=== PATIENT | female | born 1940 | race Caucasian/White ===

== ENCOUNTER 2017-09-11 10:58 | Inpatient (IN) | payer MEDICARE, OTHER, SELFPAY ==
[2017-09-11] VITALS (13 sets, daily range): BP systolic 95–127; BP diastolic 51–60; PULSE 57–70; RESP 16–21; TEMP 36.6–37.9; O2SAT 95–100; BMI 20.8; BMI 22.4; BMI 22.5
--- NOTE | 2017-09-11 11:18 | RAD_ITS ---
STUDY: X-RAY CHEST REASON FOR EXAM: Female, 77 years old. Syncope. Heart disease. TECHNIQUE: Single AP portable view of the chest. COMPARISON: 04/12/2013. FINDINGS: Normal lung volumes. 1.2 cm nodule of the mid left lung. CT scan recommended. No infiltrates. No effusions. Sternal cerclage wires and vascular clips are present from a prior sternotomy and coronary artery bypass graft procedure (CABG). Normal mediastinum and tiana. Normal visualized pulmonary arteries. Normal visualized aortic arch and descending thoracic aorta. Normal visualized thoracic spine. Normal visualized ribs, clavicles, and shoulders. There is no demonstrated abnormality of the visualized soft tissue structures of the upper abdomen. RAD/Chest 1 View (Portable) IMPRESSION: 1.2 cm nodule of the mid left lung. CT scan recommended. Electronically Signed: Navdeep Dc MD at 11:41 EDT , Service support ,
--- NOTE | 2017-09-11 11:18 | EKG12_ITS ---
Test Reason : Blood Pressure : / mmHG Vent. Rate : 056 BPM Atrial Rate : 056 BPM P-R Int : 150 ms QRS Dur : 078 ms QT Int : 422 ms P-R-T Axes : 056 017 026 degrees QTc Int : 407 ms Sinus bradycardia Otherwise normal ECG Confirmed by PROSPER NOGUERA, GABRIELLA ([id number]), industrial editor ARIN ARGUETA ([id number]) on 09/13/2017 3:26:53 PM Referred By: MIAH Confirmed By:GABRIELLA CHENG MD
--- NOTE | 2017-09-11 11:18 | CT_ITS ---
STUDY: CT BRAIN WITHOUT CONTRAST REASON FOR EXAM: Female, 77 years old. SYNCOPE RADIATION DOSAGE (If Supplied By Facility): CTDIvol = ( 44.99 ) mGy, DLP = ( 779.24 ) mGycm TECHNIQUE: Transaxial CT imaging of the brain was performed without administration of intravenous contrast material. Individualized dose optimization techniques were used for this CT. COMPARISON: None. FINDINGS: Normal soft tissue structures. Normal calvarium. Normal size ventricles and extra-axial spaces for the patient's age. Normal white matter tracts of the cerebral hemispheres. Normal basal ganglia and thalami. Normal brainstem. Normal cerebellum. There is no intracranial hemorrhage. There are no findings of an acute ischemic infarction. Normal visualized paranasal sinuses. CT/Brain/Head without Contrast IMPRESSION: Normal unenhanced CT scan of the brain. Electronically Signed: Navdeep Dc MD at 12:05 EDT , Service support ,
[2017-09-11] MEDS: 0.9% Normal Saline 1,000 ML 150 ML IV (11:38)
[2017-09-11 11:45] LABS: Absolute Lymphocyte Count 0.51 X10^3/ul (0.83-4.51); Absolute Neutrophil Count 1.4 X10^3/uL (2.0-7.7); Basophil# 0.01 X10^3/uL; Basophil% 0.4 % (0-1); Differential Indicated SCAN CRITERIA MET; Eosinophil# 0.01 X10^3/uL; Eosinophils% 0.4 % (0-5); Hematocrit 33.5 % (37-47); Hemoglobin 11.4 g/dl (12.0-15.0); Lymphocyte # 0.51 X10^3/ul (4.0); Lymphocyte % 22.9 % (19-41); Mean Corpuscular Hgb 29.4 pg (27.0-32.0); Mean Corpuscular Volume 86.3 fL (81-99); Monocyte# 0.29 X10^3/uL; Neutrophil % 62.9 % (47-70); POSITIVE COUNT NO; POSITIVE DIFFERENTIAL YES; POSITIVE MORPHOLOGY NO; Platelet Count 144 K/mm3 (150-450); RBC Distribution Width CV 13.3 % (11.6-14.6); RBC Distribution Width SD 41.8 fl (35.1-43.9); Red Blood Count 3.88 M/mm3 (4.2-5.4); White Blood Count 2.2 K/mm3 (4.4-11.0)
[2017-09-11 12:00] LABS: Anion Gap 8 (5-15); BUN 11 mg/dL (7-18); BUN/Creat Ratio 21.9 RATIO (10-20); Calcium,Total 8.6 mg/dL (8.5-10.1); Chloride 98 mmol/L (98-107); EST Glomerular Filtration Rate 126 mL/min (>60); Est Glom Filt Rate - Afr Amer 153 mL/min (>60); Estimated Creatinine Clearance 37.26 ml/min; Glucose 105 mg/dL (74-106); Potassium 3.5 mmol/L (3.5-5.1); Sodium Level 131 mmol/L (136-145)
--- NOTE | 2017-09-11 12:10 | ED.RN ---
FLU B CALLED FROM THE LAB. DR BOND AWARE
--- NOTE | 2017-09-11 12:41 | ED.VISSUMM ---
- ER Visit Summary Date of Service: 09/11/17 Chief Complaint: [Syncope] History of Present Illness: The patient is a 77 F [presents to the emergency department with a syncopal episode that occurred this morning. Patient states that she was on the couch and had gotten up to go into the kitchen when she started feeling dizzy. Patient apparently just remembers falling onto the floor but apparently her was able to catch her so she did not injure herself. Patient denies any chest pain or palpitations. Patient does state that she had a head cold and cough that started 2 weeks ago. Patient was on Biaxin for about a week but then developed vomiting so she stopped taking the Biaxin. Patient states that she has been on the couch for the last 2 days just not feeling well with headache and congestion and just generalized weakness. Patient apparently had fever recently up to 101.6. Patient denies any chest pain or abdominal pain. Patient does not have a history of syncope.] Physical Examination: [HEENT-PERRLA, EOMI. Cranial nerves II through XII grossly intact. TMs clear. Mucous membranes are dry. No adenopathy. Cardiovascular-regular rate and rhythm without murmur or ectopy Lungs-clear to auscultation, chest wall stable without crepitus or subcu emphysema Abdomen-normoactive bowel sounds, soft, nontender, no rebound or rigidity, no peritoneal signs. Extremities-intact ?4, normal range of motion, normal pulses, atraumatic] Test Results: [EKG obtained arrival shows sinus bradycardia with rate of 56 bpm with no acute ST segment changes noted. CBC with differential showed a white count 2.2, hemoglobin 11, hematocrit 33, platelets 144. Chemistries unremarkable. Troponin was less than 0.02. CT scan of the brain was normal. Chest x-ray showed 1.2 cm nodule mid left lung otherwise nothing acute.] Emergency Department Course and Treatment: [While in the department her blood pressure dropped into the 80 systolic therefore she was given a liter normal same fluid bolus] Treatment Plan: [Admit for IV fluids and further evaluation of her syncope] Disposition: [Admit] Impression: [Syncope-etiology uncertain Hypotension] This note was generated with [employer] dictation software. It may contain incorrect words, spelling, and punctuation that were not noted in review of the chart prior to signing ED Disposition - Plan for ED Patient: Chief Complaint: Syncope Referrals: Stephanie Aceves DO [Primary Care Provider] -
[2017-09-11] MEDS: 0.9% Normal Saline 1,000 ML 1000 ML IV (12:43)
[2017-09-11 13:13] LABS: Mucous, Urine 0 SEEN /hpf (<or=2+); Red Blood Cells-Urine 0 SEEN /hpf (0-5); Squamous Epithelial Cells - UA 0 SEEN /hpf (5-10); White Blood Cells 0 SEEN /hpf (0-5)
[2017-09-11 13:17] LABS: Color, Urine Yellow (Yellow); Glucose, Dipstick Normal (Normal); Ketone-Dipstick Negative (Negative); Leukocyte Esterase-Dipstick Negative /ul (Negative); Nitrite-Dipstick Negative (Negative); Occult Blood-Urine Negative /ul (Negative); Protein-Dipstick 15 mg/dl (Negative); Urine Bilirubin Dipstick Negative (Negative); Urine Clarity Clear (Clear); Urine Urobilinogen Normal (Normal)
[2017-09-11 13:36] LABS: Bacteria 1+ /hpf (None Seen)
--- NOTE | 2017-09-11 13:44 | PCM.HP.STD ---
Problem List (1) Coronary artery disease Status: Acute (2) H/O two vessel coronary artery bypass graft Status: Chronic (3) Hypertension Status: Chronic (4) Osteoporosis Status: Acute (5) History of right breast cancer Status: Resolved Comment: History of right breast lumpectomy (6) Nodule of left lung Status: Acute (7) Syncope and collapse Status: Acute (8) Hypotension Status: Acute (9) Influenza B Status: Acute History of Present Illness Date of Admission: 09/11/17 Chief Complaint: Syncope today The patient is a 77 year old F with multiple comorbidities was brought to ER when she passed out at home. She has been suffering from cough, productive in nature and vomiting for last 3 weeks.. Her PCP prescribed Biaxin but she vomited after taking pill although she said she took for 7 days. Her cough got better but again the last 2 days it came back which is more severe and productive, feeling cold along with postnasal drip and URI symptoms and then she passed out today without prodromal symptoms. She passed out for less than 1 minute and she did not fall as her caught her and broke the fall. She vomited after she regained consciousness. EMS EKG shows sinus bradycardia at 50 bpm. In ER, influenza A came positive. EKG shows sinus bradycardia at 56 bpm. QTc normal, 407 ms. [] Past Medical History Past Medical History (Chronic Problems): Chronic Problems H/O two vessel coronary artery bypass graft (Chronic) Hypertension (Chronic) Allergies formaldehyde Allergy (Verified 09/11/17 10:59) Unknown nickel [Nickel] Allergy (Verified 09/11/17 10:59) Unknown perflutren lipid microspheres [From Definity] Allergy (Verified 09/11/17 10:59) Other SEVERE BACK ACHE piroxicam [From Feldene] Allergy (Verified 09/11/17 10:59) Unknown THEMASOL Allergy (Uncoded 09/11/17 10:59) Unknown Home Medications: Ambulatory Orders Medication Instructions Recorded Aspirin [Aspirin, Baby] 81 mg PO DAILY@0800 04/15/13 Carvedilol [Coreg (Beta Vandana)] 12.5 mg PO BID 04/15/13 Cyanocobalamin [Vitamin B12] 1,000 mcg IM Q30D 04/15/13 Levothyroxine [Synthroid] 112 mcg PO DAILY 04/15/13 Lisinopril [Zestril] 10 mg PO DAILY 04/15/13 Nitroglycerin [Nitrostat] 0.4 mg SUBLINGUAL Q5M PRN 04/15/13 Calcium Citrate/Vitamin D3 1 each PO BID 05/18/15 [Calcium Citrate-Vit D3 Tablet] Cholecalciferol (VIT D3) [Vitamin 2,000 unit PO DAILY 05/18/15 D3] Denosumab [Prolia] 60 mg SQ UD 05/18/15 TraMADol [Ultram] 50 mg PO DAILY 05/18/15 Ezetimibe [Zetia] 10 mg PO DAILY 07/23/17 Oxycodone HCl/Acetaminophen 1 tab PO Q6H PRN PRN #12 tab 07/23/17 [Percocet 5/325] Apremilast [Otezla] 2 each PO DAILY 09/11/17 Letrozole [Femara] 2.5 mg PO DAILY 09/11/17 Smoking Status: Former smoker - *Family History Sibling History Items: No pertinent history Review of Systems Constitutional: Reports: Anorexia, Weakness. Denies: Chills, Fever, Weight Change HEENT: Reports: Nasal Congestion, Sinus Drainage, Sore Throat. Denies: Head Aches, Sinus Congestion Cardiovascular: Denies: Chest Pain, Palpitations Respiratory: Reports: Cough, Shortness of breath upon exertion. Denies: Shortness of breath at rest, Sputum production Gastrointestinal: Reports: Vomiting. Denies: Abdominal Pain, Constipation, Nausea Genitourinary: Denies: Dysuria Musculoskeletal: Denies: Joint Pain, Joint Tenderness Skin: Denies: Rash, Wounds Neurological: Denies: Numbness, Tingling, Focal weakness Psychiatric: Denies: Anxiety, Depression, Homicidal Ideations, Suicidal Ideations Hematologic/ Lymphatic: Denies: Easy Bruising, Easy Bleeding VTE Information - Inpt Only VTE Present on Admission: No VTE Mechan Device Prophylaxis: SCD's VTE Pharm Prophylaxis ordered?: Yes Patient Problems: Active and Suspected Problems Coronary artery disease (Acute) Osteoporosis (Acute) Nodule of left lung (Acute) Syncope and collapse (Acute) Hypotension (Acute) Influenza B (Acute) - Physical Exam General: Alert, Oriented x3, Cooperative HEENT: Atraumatic, PERRLA, EOMI, Normocephalic Neck: Supple, No JVD, Negative Carotid Bruits Lungs: Normal air movement, No wheeze, No rales, Rhonchi - Expiratory wheezing Cardiovascular: Regular rate, No murmurs Abdomen: Bowel Sounds Present, Soft, Non Tender, Non-Distended Extremities: No edema, Capillary Refill Less than 3 Seconds Skin: No rashes, No breakdown Musculoskeletal: No Tenderness to Palpation of Joints or Extremities, Arthritic Changes Neurological: Cranial nerves II-XII grossly intact, Neuro grossly intact Psych/Mental Status: Normal Affect, Appropriate Vital Signs Temp Pulse Resp BP Pulse Ox 97.8 F 67 17 100/53 L 100 09/11/17 10:59 09/11/17 13:05 09/11/17 13:00 09/11/17 13:05 09/11/17 13:00 Laboratory Tests Past 24 Hrs 09/11/17 13:08 Urine Color Yellow Urine Clarity Clear Urine pH 6.0 Ur Specific [place] 1.020 Urine Protein 15 H Urine Glucose (UA) Normal Urine Ketones Negative Urine Occult Blood Negative Urine Nitrite Negative Urine Bilirubin Negative Urine Urobilinogen Normal Ur Leukocyte Esterase Negative Urine RBC 0 SEEN Urine WBC 0 SEEN Ur Squamous Epith Cells 0 SEEN Urine Bacteria 1+ Urine Mucus 0 SEEN Assessment/Plan Active and Suspected Problems Coronary artery disease (Acute) Osteoporosis (Acute) Nodule of left lung (Acute) Syncope and collapse (Acute) Hypotension (Acute) Influenza B (Acute) The patient is a 77 year old F with multiple comorbidities was brought to ER when she passed out at home. She has been suffering from cough, productive in nature and vomiting for last 3 weeks.. Her PCP prescribed Biaxin but she vomited after taking pill although she said she took for 7 days. Her cough got better but again the last 2 days it came back which is more severe and productive, feeling cold along with postnasal drip and URI symptoms and then she passed out today without prodromal symptoms. She passed out for less than 1 minute and she did not fall as her caught her and broke the fall. She vomited after she regained consciousness. EMS EKG shows sinus bradycardia at 50 bpm. In ER, influenza B came positive. EKG shows sinus bradycardia at 56 bpm. QTc normal, 407 ms. 1. Syncope most probably from hypotension or from influenza B: The patient is being admitted in PCU. Cycle cardiac enzymes. IV fluid resuscitation. On Tamiflu. 2D echo ordered. Avoid antihypertensive medication. Respiratory panel ordered. 2. SIRS (leukopenia, tachypnea) WITH Hypotension sec to influenza B with URI with bronchitis. Chest x-ray is negative for pneumonia. Patient does not have hypoxia. Hemogram is suggestive of leukopenia and mild thrombocytopenia mainly from viral infection. Lactic acid ordered. Blood cultures ?2, sputum culture ordered. Sepsis workup. 3. History of right breast cancer status post right lumpectomy with new 1.2 cm nodule of mid left lung: Will order CT chest with IV contrast when she is more stable after recovery of hypotension. 4. Chronic comorbidities include coronary artery disease status post CABG 2 vessel thousand 3 with no recent event, hypertension, osteoporosis, hypothyroidism: Stable. Home medication reconciliation done. DVT prophylaxis: On Lovenox 40 mg subcu daily and bilateral SCDs This note was generated with [employer] dictation software. Every effort was made to ensure accuracy, however computerized [employer] school industrial arts teacher mistakes may persist. Microbiology Past 72 Hours 09/11/17 11:20 Mucosa - Nose Influenza Types A,B Direct FA ([facility]ALL) - Final Laboratory Results 09/11/17 11:25: WBC 2.2 L, RBC 3.88 L, Hgb 11.4 L, Hct 33.5 L, MCV 86.3, MCH 29.4, MCHC 34.0, RDW 13.3, RDW Differential 41.8, Plt Count 144 L, MPV 9.0, Immature Gran % (Auto) 0.400, Neut % (Auto) 62.9, Lymph % (Auto) 22.9, Larue % (Auto) 13.0 H, Eos % (Auto) 0.4, Baso % (Auto) 0.4, Absolute Neuts (auto) 1.4 L, Absolute Lymphs (auto) 0.51 L, Total Counted Not Reportable, Differential Comment , Diff Path Review May foll 09/11/17 11:25: Sodium 131 L, Potassium 3.5, Chloride 98, Carbon Dioxide 25.0, Anion Gap 8, BUN 11, Creatinine 0.50 L, Estim Creat Clear Calc 37.26, Est GFR (MDRD) Af Amer 153, Est GFR (MDRD) Non-Af 126, BUN/Creatinine Ratio 21.9 H, Glucose 105, Calcium 8.6, Troponin I < 0.02 09/11/17 13:08: Urine Color Yellow, Urine Clarity Clear, Urine pH 6.0, Ur Specific [place] 1.020, Urine Protein 15 H, Urine Glucose (UA) Normal, Urine Ketones Negative, Urine Occult Blood Negative, Urine Nitrite Negative, Urine Bilirubin Negative, Urine Urobilinogen Normal, Ur Leukocyte Esterase Negative, Urine RBC 0 SEEN, Urine WBC 0 SEEN, Ur Squamous Epith Cells 0 SEEN, Urine Bacteria 1+, Urine Mucus 0 SEEN Clinical Impression(s) from Imaging Studies Brain CT 09/11/17 11:18 IMPRESSION: Normal unenhanced CT scan of the brain. Electronically Signed: Navdeep Dc MD at 12:05 EDT , Service support , Chest X-Ray 09/11/17 11:18 IMPRESSION: 1.2 cm nodule of the mid left lung. CT scan recommended. Electronically Signed: Navdeep Dc MD at 11:41 EDT , Service support , Code Visit OBSV E&M: 70898 Initial observation care L3
--- NOTE | 2017-09-11 13:52 | ECHOD_ITS ---
Reason For Study: syncope Procedure This was a 2D Doppler, Color Flow transthoracic echocardiogram. The study was technically difficult. PT unable to lie still. deferred definity due to previous reaction (back pain). Exam performed portable in patient room. Left Ventricle Normal LV size. Left ventricular systolic function is normal. The estimated ejection fraction is 60 %. Transmitral and pulmonary venous doppler flow suggestive of impaired relaxation of left ventricle. Transmitral diastolic flow velocities suggest mild (stage 1) diastolic dysfunction (reversed pattern). Right Ventricle Normal RV size. Normal systolic function. Atria The left atrium is mildly enlarged. Normal right atrium. Mitral Valve Normal mitral valve. Tricuspid Valve Normal tricuspid valve. Mild (1+) tricuspid valve insufficiency. Pulmonary artery systolic pressure is 30 mmHg. Aortic Valve The aortic valve is not well visualized. Pulmonic Valve The pulmonic valve is not well visualized. Great Vessels Normal aortic root. The pulmonary artery is normal size. Normal inferior vena cava. Pericardium/Pleural No pericardial effusion. MMode/2D Measurements & Calculations LVIDd: 4.5 cm IVSd: 1.2 cm Ao root diam: 2.6 cm LVIDs: 3.0 cm LVPWd: 1.3 cm LA dimension: 4.4 cm RVDd: 2.9 cm FS: 34.1 % LAV(MOD-bp): 67.8 ml LA A4 area: 20.9 cm2 RA A4 area: 12.7 cm2 LAV(MOD-bp) Indexed: 45.0 ml/m2 LAV(MOD-sp2): 68.4 ml LAV(MOD-sp4): 66.4 ml Time Measurements MV dec time: 0.19 sec Doppler Measurements & Calculations MV E max carlos: 80.2 cm/sec Lat Peak E' Carlos: 11.3 cm/sec Med Peak E' Carlos: 7.5 cm/sec MV A max carlos: 103.4 cm/sec E/E' lat: 7.1 E/E' med: 10.7 MV E/A: 0.78 Ao V2 max: 157.7 cm/sec LV V1 max: 115.8 cm/sec PA V2 max: 127.1 cm/sec Ao max P.0 mmHg LV V1 max P.4 mmHg TR max carlos: 250.8 cm/sec TR max P.2 mmHg Interpretation Summary Normal LV size. Left ventricular systolic function is normal. The estimated ejection fraction is 60 %. Transmitral diastolic flow velocities suggest mild (stage 1) diastolic dysfunction (reversed pattern). Mild (1+) tricuspid valve insufficiency. Compared to prior study, there is no significant change. Ordering Physician: Jacob Drew Referring Physician: Stephanie Aceves Performed By: Shannan Platt, ALISHA, RVT
[2017-09-11] MEDS: Ipratropium/Albuterol Sulfate 3 ML AMPUL.NEB INHALATION ×2 (14:49→21:48)
[2017-09-11] MEDS: 0.9% NaCl Peripheral Flush Adult/Peds IV (14:51)
[2017-09-11] MEDS: 0.9% Normal Saline 1,000 ML 100 ML IV (14:52)
[2017-09-11] MEDS: Famotidine 20 MG Tablet PO ×2 (15:16→21:33)
[2017-09-11] MEDS: Enoxaparin 40 MG/0.4 ML Syringe SC (15:16)
[2017-09-11] MEDS: Oseltamivir Phosphate 75 MG Capsule PO (15:16)
[2017-09-11 19:35] LABS: Color, Urine Straw (Yellow); Glucose, Dipstick Normal (Normal); Ketone-Dipstick Negative (Negative); Leukocyte Esterase-Dipstick Negative /ul (Negative); Nitrite-Dipstick Negative (Negative); Occult Blood-Urine Negative /ul (Negative); Protein-Dipstick Negative (Negative); Urine Bilirubin Dipstick Negative (Negative); Urine Clarity Clear (Clear); Urine Urobilinogen Normal (Normal); Urine pH 6.5 (5.0 - 8.0)
--- NOTE | 2017-09-11 21:18 | CT_ITS ---
STUDY: CT CHEST WITH CONTRAST REASON FOR EXAM: Female, 77 years old. Left lung nodule, right breast CA RADIATION DOSAGE (If Supplied By Facility): CTDIvol = ( 9.83 ) mGy, DLP = ( 212.14 ) mGycm TECHNIQUE: Transaxial imaging was performed following intravenous administration of 80ML ml of Isovue 300 contrast material. Individualized dose optimization techniques were used for this CT. COMPARISON: September 19, 2017 chest x-ray. FINDINGS: The lungs are normal. 2 mm peripheral right lower lobe nodule posteriorly, image 81. 4 mm nonspecific nodule at the right costophrenic angle, image 89. Previously suggested left mid lung nodule is not noted on the CT. Normal heart and pericardium. Subcentimeter nodes in the mediastinum. Normal hilar regions. Normal enhanced pulmonary arteries. Normal aorta arch and descending thoracic aorta. Mild degenerative vertebral changes. Subcentimeter left axillary nodes. 2.3 cm central cyst of the liver. CT/Chest WITH Contrast IMPRESSION: Nonspecific small right pulmonary nodular densities in the periphery. Subcentimeter mediastinal nodes. Subcentimeter left axillary nodes. Probable hepatic cyst. Electronically Signed: Vikas Hooker DO at 19:51 EDT Tel [phone], Service support ,
[2017-09-11] MEDS: guaiFENesin 1,200 MG Tablet 1200 MG PO (21:33)
[2017-09-11] MEDS: Oseltamivir Phosphate 30 MG Capsule PO (21:33)
[2017-09-11] MEDS: Carvedilol 12.5 MG Tablet PO (21:34)
[2017-09-11] MEDS: Acetaminophen 325 MG Tablet 650 MG PO (21:39)
[2017-09-12] VITALS (13 sets, daily range): BP systolic 108–143; BP diastolic 53–68; PULSE 24–79; RESP 16–18; TEMP 36.3–37.1; O2SAT 95–98
[2017-09-12] MEDS: 0.9% Normal Saline 1,000 ML 100 ML IV ×2 (05:44→14:31)
[2017-09-12] MEDS: Levothyroxine 112 MCG Tablet PO (05:44)
[2017-09-12] MEDS: Enoxaparin 40 MG/0.4 ML Syringe SC (05:44)
[2017-09-12 06:41] LABS: Absolute Lymphocyte Count 0.74 X10^3/ul (0.83-4.51); Absolute Neutrophil Count 0.6 X10^3/uL (2.0-7.7); Basophil# 0.01 X10^3/uL; Basophil% 0.6 % (0-1); Eosinophil# 0.01 X10^3/uL; Eosinophils% 0.6 % (0-5); Hematocrit 30.3 % (37-47); Hemoglobin 10.1 g/dl (12.0-15.0); Lymphocyte # 0.74 X10^3/ul (4.0); Lymphocyte % 48.1 % (19-41); Mean Corp Hgb Conc 33.3 g/gl (32-36); Mean Corpuscular Volume 87.1 fL (81-99); Mean Platelet Vol. 9.1 fl (6.2-12.0); Monocyte# 0.17 X10^3/uL; Neutrophil % 39.1 % (47-70); Platelet Count 125 K/mm3 (150-450); RBC Distribution Width CV 13.3 % (11.6-14.6); RBC Distribution Width SD 42.7 fl (35.1-43.9); Red Blood Count 3.48 M/mm3 (4.2-5.4); White Blood Count 1.5 K/mm3 (4.4-11.0)
[2017-09-12 06:42] LABS: Differential Indicated SCAN CRITERIA MET; POSITIVE COUNT NO; POSITIVE DIFFERENTIAL YES; POSITIVE MORPHOLOGY NO
[2017-09-12 07:07] LABS: Anion Gap 9 (5-15); BUN 9 mg/dL (7-18); Calcium,Total 7.8 mg/dL (8.5-10.1); Chloride 110 mmol/L (98-107); Creatinine, Serum 0.35 mg/dL (0.55-1.02); EST Glomerular Filtration Rate 194 mL/min (>60); Est Glom Filt Rate - Afr Amer 235 mL/min (>60); Estimated Creatinine Clearance 35.55 ml/min; Glucose 85 mg/dL (74-106); Potassium 3.6 mmol/L (3.5-5.1); Sodium Level 139 mmol/L (136-145)
[2017-09-12] MEDS: Ipratropium/Albuterol Sulfate 3 ML AMPUL.NEB INHALATION ×3 (07:21→19:18)
[2017-09-12] MEDS: Lisinopril 10 MG Tablet PO (09:14)
[2017-09-12] MEDS: Carvedilol 12.5 MG Tablet PO ×2 (09:15→21:26)
[2017-09-12] MEDS: guaiFENesin 1,200 MG Tablet 1200 MG PO ×2 (09:15→21:26)
[2017-09-12] MEDS: Oseltamivir Phosphate 30 MG Capsule PO ×2 (09:15→21:26)
[2017-09-12] MEDS: Ezetimibe 10 MG Tablet PO (09:15)
[2017-09-12] MEDS: Famotidine 20 MG Tablet PO ×2 (09:15→21:26)
[2017-09-12 09:18] LABS: AST(SGOT) 17 U/L (15-37); Alanine Aminotransfer ALT/SGPT 13 U/L (13-56); Albumin, Serum 2.9 g/dL (3.2-5.0); Alkaline Phosphatase 43 U/L (45-117); Bilirubin, Direct 0.08 mg/dL (0.00-0.30); CRP 6.55 mg/L (0.0-3.0); Protein, Total 5.9 g/dL (6.4-8.2)
[2017-09-12 12:09] LABS: Internal QC Validated? YES +Cl - CLEAR BKGD; Monotest Negative (Negative)
--- NOTE | 2017-09-12 16:28 | PCM.PN.HOSP ---
Patient Problems: Active and Suspected Problems Coronary artery disease (Acute) Osteoporosis (Acute) Nodule of left lung (Acute) Syncope and collapse (Acute) Hypotension (Acute) Influenza B (Acute) Subjective: Patient heart rate is between 50-60/min. Mild low-grade temperature overnight, T-max 100.2 Fahrenheit. Leukopenia with lymphocytosis 49%, monocyte 11%, elevated CRP. [place] screen negative. No skin rash. Vitals/I&O's: Vital Signs Temp Pulse Resp BP Pulse Ox 98.5 F 57 L 16 120/68 95 09/12/17 15:00 09/12/17 15:02 09/12/17 15:00 09/12/17 15:00 09/12/17 15:00 Oxygen Delivery Method Room Air General: Alert, Oriented x3, Cooperative HEENT: Atraumatic, PERRLA, EOMI, Normocephalic Oral: No Gingival or Mucosal Lesions/ Ulcerations, - Neck: Supple, No JVD, Negative Carotid Bruits Lungs: No rhonchi, No wheeze, No rales, Diminished Cardiovascular: Regular rate, Regular Rhythm, Normal S1, Normal S2, No murmurs Abdomen: Bowel Sounds Present, Soft, Non Tender, Non-Distended Extremities: No edema, Capillary Refill Less than 3 Seconds Skin: No rashes, No breakdown Musculoskeletal: No Tenderness to Palpation of Joints or Extremities, Arthritic Changes Neurological: Cranial nerves II-XII grossly intact Psych/Mental Status: Normal Affect, Appropriate Current Medications Acetaminophen (Tylenol) 650 mg PO Q4H PRN PRN PRN Reason: FEVER Last Admin: 09/11/17 21:39 Dose: 650 mg Acetaminophen (Tylenol) 650 mg PO Q6H PRN PRN PRN Reason: Mild Pain (scale 0-3)/T>100.7 Al Hydroxide/Mg Hydroxide (Mylanta Ii) 30 ml PO Q6H PRN PRN PRN Reason: Gastric Burning Albuterol Sulfate (Ventolin Aerosols) 2.5 mg INHALATION Q2H PRN PRN PRN Reason: SHORTNESS OF BREATH Albuterol/Ipratropium (Duoneb) 3 ml INHALATION Q6HWA.RT DANNA Last Admin: 09/12/17 13:10 Dose: 3 ml Carvedilol (Coreg) 12.5 mg PO BID [facility] Last Admin: 09/12/17 09:15 Dose: 12.5 mg Cholecalciferol (Vitamin D) 2,000 unit PO DAILY [facility] Last Admin: 09/12/17 09:14 Dose: 2,000 unit Docusate Sodium (Colace) 200 mg PO BID PRN PRN PRN Reason: Constipation Ezetimibe (Zetia) 10 mg PO DAILY [facility] Last Admin: 09/12/17 09:15 Dose: 10 mg Famotidine (Pepcid) 20 mg PO BID [facility] Last Admin: 09/12/17 09:15 Dose: 20 mg Guaifenesin (Mucinex) 1,200 mg PO BID [facility] Last Admin: 09/12/17 09:15 Dose: 1,200 mg Sodium Chloride () 1,000 mls @ 100 mls/hr IV .Q10H [facility] Last Admin: 09/12/17 14:31 Dose: 100 mls/hr Levothyroxine Sodium (Synthroid) 112 mcg PO DAILY@0600 [facility] Last Admin: 09/12/17 05:44 Dose: 112 mcg Lisinopril (Zestril) 10 mg PO DAILY [facility] Last Admin: 09/12/17 09:14 Dose: 10 mg Nitroglycerin (Nitrostat) 0.4 mg SUBLINGUAL Q5M PRN PRN Reason: Chest Pain Ondansetron HCl (Zofran) 4 mg IV Q6H PRN PRN PRN Reason: NAUSEA Oseltamivir Phosphate (Tamiflu) 30 mg PO BID [facility] Stop: 09/15/17 22:01 Last Admin: 09/12/17 09:15 Dose: 30 mg Oxycodone HCl (Oxyir) 5 mg PO Q4H PRN PRN PRN Reason: Moderate Pain (pain scale 4-5) Sodium Chloride () 5 - 30 ml IV UD PRN PRN Reason: SALINE FLUSH Last Admin: 09/11/17 14:51 Dose: 10 ml Tramadol HCl (Ultram (G)) 50 mg PO DAILY [facility] Last Admin: 09/12/17 09:15 Dose: 50 mg Assessment/Plan Active and Suspected Problems Coronary artery disease (Acute) Osteoporosis (Acute) Nodule of left lung (Acute) Syncope and collapse (Acute) Hypotension (Acute) Influenza B (Acute) The patient is a 77 year old F with multiple comorbidities was brought to ER when she passed out at home. She has been suffering from cough, productive in nature and vomiting for last 3 weeks.. Her PCP prescribed Biaxin but she vomited after taking pill although she said she took for 7 days. Her cough got better but again the last 2 days it came back which is more severe and productive, feeling cold along with postnasal drip and URI symptoms and then she passed out today without prodromal symptoms. She passed out for less than 1 minute and she did not fall as her caught her and broke the fall. She vomited after she regained consciousness. EMS EKG shows sinus bradycardia at 50 bpm. In ER, influenza B came positive. EKG shows sinus bradycardia at 56 bpm. QTc normal, 407 ms. 1. Syncope most probably from hypotension or from influenza B: The patient is being admitted in PCU. Cycle cardiac enzymes. IV fluid resuscitation. 2D echo shows EF 60% and a stage I diastolic dysfunction. Left atrium mildly enlarged. Normal right atrium. Normal RV size systolic function. 2. SIRS (leukopenia, tachypnea) WITH Hypotension sec to influenza B with URI with bronchitis; possible due to acute viral syndrome. Chest x-ray is negative for pneumonia. Patient does not have hypoxia. Hemogram is suggestive of leukopenia, mild anemia and mild thrombocytopenia mainly due to bone marrow suppression from viral infection. Lactic acid . Blood cultures ?2, are pending. Urinary antigens are negative. Respiratory panel positive of influenza B. On Tamiflu. Patient heart rate is between 50-60/min. Mild low-grade temperature, T-max 100.2 Fahrenheit. Leukopenia with lymphocytosis 49%, monocyte 11%, elevated CRP. [place] screen negative; suggestive of acute viral syndrome. Monitor CBC daily. 3. History of right breast cancer status post right lumpectomy with new 1.2 cm nodule of mid left lung: CT chest with contrast done and shows nonspecific small right pulmonary nodular densities in the periphery.Subcentimeter mediastinal nodes.Subcentimeter left axillary nodes. Findings of CT scan discussed with the patient and her . 4. Chronic comorbidities include coronary artery disease status post CABG 2 vessel, 2002 with no recent event, hypertension, osteoporosis, hypothyroidism: Stable. Home medication reconciliation done. DVT prophylaxis: On Lovenox 40 mg subcut daily and bilateral SCDs This note was generated with [employer]ation software. Every effort was made to ensure accuracy, however computerized aircraft navigator mistakes may persist. Microbiology Past 72 Hours 09/11/17 14:45 Mucosa - Nasopharyngeal Respiratory Panel (PCR) - Final Influenzae B 09/12/17 09:30 Mucosa - Throat Group A Streptococcus Rapid Screen - Preliminary 09/11/17 11:20 Mucosa - Nose Influenza Types A,B Direct FA ([facility]) - Final Influenzae B 09/11/17 15:57 Urine, Clean Catch Streptococcus pneumoniae Antigen (M - Final 09/11/17 15:57 Urine, Clean Catch Legionella Antigen - Final Laboratory Results 09/11/17 15:57: Urine Color Straw, Urine Clarity Clear, Urine pH 6.5, Ur Specific [place] 1.010, Urine Protein Negative, Urine Glucose (UA) Normal, Urine Ketones Negative, Urine Occult Blood Negative, Urine Nitrite Negative, Urine Bilirubin Negative, Urine Urobilinogen Normal, Ur Leukocyte Esterase Negative 09/12/17 05:45: WBC 1.5 L, RBC 3.48 L, Hgb 10.1 L, Hct 30.3 L, MCV 87.1, MCH 29.0, MCHC 33.3, RDW 13.3, RDW Differential 42.7, Plt Count 125 L, MPV 9.1, Immature Gran % (Auto) 0.600, Neut % (Auto) 39.1 L, Lymph % (Auto) 48.1 H, [place] % (Auto) 11.0 H, Eos % (Auto) 0.6, Baso % (Auto) 0.6, Absolute Neuts (auto) 0.6 L, Absolute Lymphs (auto) 0.74 L, Total Counted Not Reportable 09/12/17 05:45: Sodium 139, Potassium 3.6, Chloride 110 H, Carbon Dioxide 20.0 L, Anion Gap 9, BUN 9, Creatinine 0.35 L, Estim Creat Clear Calc 35.55, Est GFR (MDRD) Af Amer 235, Est GFR (MDRD) Non-Af 194, BUN/Creatinine Ratio 26.0 H, Glucose 85, Calcium 7.8 L 09/12/17 08:30: Total Bilirubin 0.30, Direct Bilirubin 0.08, AST 17, ALT 13, Alkaline Phosphatase 43 L, C-React Prot Ext Range 6.55 H, Total Protein 5.9 L, Albumin 2.9 L, Globulin 3.0 09/12/17 08:30: Monoscreen Negative 09/12/17 08:30: EBV Capsid Ag IgM Ab Pending, EBV Early Antigen IgG Pending Clinical Impression(s) from Imaging Studies Brain CT 09/11/17 11:18 IMPRESSION: Normal unenhanced CT scan of the brain. Electronically Signed: Navdeep Dc MD at 12:05 EDT , Service support , Chest X-Ray 09/11/17 11:18 IMPRESSION: 1.2 cm nodule of the mid left lung. CT scan recommended. Electronically Signed: Navdeep Dc MD at 11:41 EDT , Service support , Chest CT 09/11/17 21:18 IMPRESSION: Nonspecific small right pulmonary nodular densities in the periphery. Subcentimeter mediastinal nodes. Subcentimeter left axillary nodes. Probable hepatic cyst. Electronically Signed: Vikas Hooker DO at 19:51 EDT Tel [phone], Service support , Code Visit Inpatient E&M: 91259 Subs Hosp L3
[2017-09-12] MEDS: MELATONIN 3 MG TABLET PO (21:26)
[2017-09-13] VITALS (7 sets, daily range): BP systolic 116–138; BP diastolic 61–82; PULSE 52–74; RESP 16–19; TEMP 36.6–37; O2SAT 95–96
[2017-09-13] MEDS: 0.9% Normal Saline 1,000 ML 100 ML IV ×2 (00:46→09:41)
[2017-09-13] MEDS: Levothyroxine 112 MCG Tablet PO (06:34)
[2017-09-13] MEDS: Acetaminophen 325 MG Tablet 650 MG PO (06:37)
[2017-09-13] MEDS: Ipratropium/Albuterol Sulfate 3 ML AMPUL.NEB INHALATION ×2 (07:00→13:29)
[2017-09-13 09:25] LABS: Absolute Lymphocyte Count 0.55 X10^3/ul (0.83-4.51); Absolute Neutrophil Count 0.6 X10^3/uL (2.0-7.7); Differential Indicated SCAN CRITERIA MET; Eosinophil# 0.03 X10^3/uL; Eosinophils% 2.3 % (0-5); Hematocrit 30.9 % (37-47); Hemoglobin 10.4 g/dl (12.0-15.0); Lymphocyte # 0.55 X10^3/ul (4.0); Lymphocyte % 41.4 % (19-41); Mean Corp Hgb Conc 33.7 g/gl (32-36); Mean Corpuscular Hgb 29.2 pg (27.0-32.0); Mean Corpuscular Volume 86.8 fL (81-99); Mean Platelet Vol. 8.7 fl (6.2-12.0); Monocyte# 0.12 X10^3/uL; Neutrophil # 0.63 X10^3/uL (2.7-7.7); Neutrophil % 47.3 % (47-70); POSITIVE COUNT YES; POSITIVE DIFFERENTIAL YES; POSITIVE MORPHOLOGY NO; Platelet Count 118 K/mm3 (150-450); RBC Distribution Width SD 41.6 fl (35.1-43.9); Red Blood Count 3.56 M/mm3 (4.2-5.4)
[2017-09-13] MEDS: Carvedilol 12.5 MG Tablet PO (09:40)
[2017-09-13] MEDS: Ezetimibe 10 MG Tablet PO (09:40)
[2017-09-13] MEDS: guaiFENesin 1,200 MG Tablet 1200 MG PO (09:40)
[2017-09-13] MEDS: Famotidine 20 MG Tablet PO (09:40)
[2017-09-13] MEDS: Lisinopril 10 MG Tablet PO (09:40)
[2017-09-13] MEDS: Oseltamivir Phosphate 30 MG Capsule PO (09:41)
[2017-09-13 09:47] LABS: Anion Gap 10 (5-15); BUN 5 mg/dL (7-18); BUN/Creat Ratio 16.8 RATIO (10-20); Calcium,Total 7.8 mg/dL (8.5-10.1); Chloride 110 mmol/L (98-107); EST Glomerular Filtration Rate 231 mL/min (>60); Est Glom Filt Rate - Afr Amer 279 mL/min (>60); Estimated Creatinine Clearance 35.55 ml/min; Glucose 98 mg/dL (74-106); Potassium 3.4 mmol/L (3.5-5.1); Sodium Level 141 mmol/L (136-145)
[2017-09-13 09:52] LABS: White Blood Count 1.3 K/mm3 (4.4-11.0)
[2017-09-13 09:54] LABS: Differential Comment SCANNED; Hypochromasia 1+; Platelet Estimate SLT DEC (ADEQ)
[2017-09-13 11:07] LABS: Pathologist Review Reviewed
[2017-09-13] MEDS: TBO-FILGRASTIM 300 MCG/0.5 ML ML SC (13:07)
--- NOTE | 2017-09-13 13:36 | PCM.DC ---
- Discharge Diagnoses Current Active Problems: Current Active and Chronic Problems Coronary artery disease (Acute) H/O two vessel coronary artery bypass graft (Chronic) Hypertension (Chronic) Osteoporosis (Acute) Nodule of left lung (Acute) Syncope and collapse (Acute) Hypotension (Acute) Influenza B (Acute) You will use the following diet at home:: Cardiac Discharge Activity: May not drive while taking narcotic pain medications. Allergies/Adverse Reactions: Allergies No Known Drug Allergies Allergy (Verified 09/11/17 14:07) Unknown Medications to take at Discharge Carvedilol [Coreg (Beta Vandana)] 12.5 mg PO BID 04/15/13 Cyanocobalamin [Vitamin B12] 1,000 mcg IM Q30D 04/15/13 Levothyroxine [Synthroid] 112 mcg PO DAILY 04/15/13 Nitroglycerin [Nitrostat] 0.4 mg SUBLINGUAL Q5M PRN 04/15/13 Calcium Citrate/Vitamin D3 [Calcium Citrate-Vit D3 Tablet] 1 each PO BID 05/18/15 Cholecalciferol (VIT D3) [Vitamin D3] 2,000 unit PO DAILY 05/18/15 Denosumab [Prolia] 60 mg SQ UD 05/18/15 TraMADol [Ultram] 50 mg PO DAILY 05/18/15 Ezetimibe [Zetia] 10 mg PO DAILY 07/23/17 Oxycodone HCl/Acetaminophen [Percocet 5-325] 1 tab PO Q6H PRN PRN #12 tab 07/23/17 Apremilast [Otezla] 1 each PO BID 09/11/17 Aspirin [Aspirin, Baby] 81 mg PO DAILY@0800 #0 09/13/17 Guaifenesin [Mucinex] 1,200 mg PO BID #10 tablet 09/13/17 Letrozole [Femara] 2.5 mg PO DAILY #0 09/13/17 Lisinopril [Zestril] 10 mg PO DAILY #0 09/13/17 Oseltamivir Phosphate [Tamiflu] 30 mg PO BID #5 cap 09/13/17 The following prescriptions were given: Oseltamivir Phosphate [Tamiflu] 30 mg PO BID #5 cap Primary Care Physician: Stephanie Aceves DO [Primary Care Provider] - Please follow up with your Primary Care Physician in: In 1 week to follow up CBC
--- NOTE | 2017-09-13 14:24 | CASEMGMT ---
Face to Face with patient for initial transition planning/care coordination assessment. RANDY WESTBROOK introduced self and role at [facility], pt voices understanding and consents to assessment at this time. Pt sitting up in bed in no distress at this time. Pt A/O x4 at this time and answers all questions appropriately at this time. Care providers, pharmacy, and demographics verified. See attached link. Pt voices no further concerns/needs at this time. Advised pt to ask for CM if any further questions/concerns/needs arise, voices understanding. PLAN: [place] [facility] [place]
--- NOTE | 2017-09-13 19:04 | DS.PCM_ITS ---
Discharge Date and Diagnosis Date of Admission: 09/11/17 Date of Discharge: 09/13/17 - Primary Discharge Diagnosis 1. Syncope most probably from hypotension or from influenza B: 2. SIRS (leukopenia, tachypnea) WITH Hypotension sec to influenza B with URI with bronchitis; possible due to acute viral syndrome. Neutropenia and mild thrombocytopenia and anemia possible bone marrow suppression due to acute viral syndrome from influenza B - Secondary Discharge Diagnosis Chronic Problems H/O two vessel coronary artery bypass graft (Chronic) Hypertension (Chronic) Hospital Course and Treatment Summary of Care Provided: [] The patient is a 77 year old F with multiple comorbidities was brought to ER when she passed out at home. She has been suffering from cough, productive in nature and vomiting for last 3 weeks.. Her PCP prescribed Biaxin but she vomited after taking pill although she said she took for 7 days. Her cough got better but again the last 2 days it came back which is more severe and productive, feeling cold along with postnasal drip and URI symptoms and then she passed out today without prodromal symptoms. She passed out for less than 1 minute and she did not fall as her caught her and broke the fall. She vomited after she regained consciousness. EMS EKG shows sinus bradycardia at 50 bpm. In ER, influenza B came positive. EKG shows sinus bradycardia at 56 bpm. QTc normal, 407 ms. The patient was seen and examined today General: Alert, Oriented x3, Cooperative HEENT: Atraumatic, PERRLA, EOMI, Normocephalic Oral: No Gingival or Mucosal Lesions/ Ulcerations, - Neck: Supple, No JVD, Negative Carotid Bruits Lungs: No rhonchi, No wheeze, No rales, Diminished Cardiovascular: Regular rate, Regular Rhythm, Normal S1, Normal S2, No murmurs Abdomen: Bowel Sounds Present, Soft, Non Tender, Non-Distended Extremities: No edema, Capillary Refill Less than 3 Seconds Skin: No rashes, No breakdown Musculoskeletal: No Tenderness to Palpation of Joints or Extremities, Arthritic Changes Neurological: Cranial nerves II-XII grossly intact Psych/Mental Status: Normal Affect, Appropriate 1. Syncope most probably from hypotension or from influenza B: The patient is being admitted in PCU. Cycle cardiac enzymes. IV fluid resuscitation. 2D echo shows EF 60% and a stage I diastolic dysfunction. Left atrium mildly enlarged. Normal right atrium. Normal RV size systolic function. 2. SIRS (leukopenia, tachypnea) WITH Hypotension sec to influenza B with URI with bronchitis; possible due to acute viral syndrome. Chest x-ray is negative for pneumonia. Patient does not have hypoxia. Hemogram is suggestive of leukopenia, mild anemia and mild thrombocytopenia mainly due to bone marrow suppression from viral infection. Lactic acid . Blood cultures ?2, are pending. Urinary antigens are negative. Respiratory panel positive of influenza B. On Tamiflu. She is hemodynamically stable. No fever for more than 48 hours. Leukopenia with lymphocytosis 49%, monocyte 11%, elevated CRP. [place] screen negative; patient EBV early antigen and Capsid IgM negative, suggestive of acute viral syndrome. Repeat CBC is also 1.3 thousand but ANC 0.6 thousand 300 mcg Neupogen given. Neutropenia and mild thrombocytopenia and anemia possible bone marrow suppression due to acute viral syndrome from influenza B: As mentioned above 3. History of right breast cancer status post right lumpectomy with new 1.2 cm nodule of mid left lung: CT chest with contrast done and shows nonspecific small right pulmonary nodular densities in the periphery.Subcentimeter mediastinal nodes.Subcentimeter left axillary nodes. Findings of CT scan discussed with the patient and her . 4. Chronic comorbidities include coronary artery disease status post CABG 2 vessel, 2002 with no recent event, hypertension, osteoporosis, hypothyroidism: Stable. Home medication reconciliation done. DVT prophylaxis: On Lovenox 40 mg subcut daily and bilateral SCDs Overall hospital course of acute viral syndrome and bone marrow suppression discussed with the patient. She understands that this is most rarely due to acute viral syndrome and bone marrow takes time to recover. Patient agrees for the discharge. Prescription for follow-up CBC on 09/15/2017 given. Follow-up with PCP for CBC. Prescription for Tamiflu given. Discharge medication reconciliation done. Discharge follow-up instructions completed. Aspirin, letrozole held due to mild thrombocytopenia and bone marrow suppression. Total time spent, exact 32 minutes on discharge meds reconciliation, examination , and blood test and discussion with the patient on follow-up instructions. This note was generated with [employer] software. Every effort was made to ensure accuracy, however computerized conference center coordinator mistakes may persist. Discharge Activity: May not drive while taking narcotic pain medications. Home Medications: Medications to take at Discharge Carvedilol [Coreg (Beta Vandana)] 12.5 mg PO BID 04/15/13 Cyanocobalamin [Vitamin B12] 1,000 mcg IM Q30D 04/15/13 Levothyroxine [Synthroid] 112 mcg PO DAILY 04/15/13 Nitroglycerin [Nitrostat] 0.4 mg SUBLINGUAL Q5M PRN 04/15/13 Calcium Citrate/Vitamin D3 [Calcium Citrate-Vit D3 Tablet] 1 each PO BID Cholecalciferol (VIT D3) [Vitamin D3] 2,000 unit PO DAILY 05/18/15 Denosumab [Prolia] 60 mg SQ UD 05/18/15 TraMADol [Ultram] 50 mg PO DAILY 05/18/15 Ezetimibe [Zetia] 10 mg PO DAILY 07/23/17 Oxycodone HCl/Acetaminophen [Percocet 5-325] 1 tab PO Q6H PRN PRN #12 tab Apremilast [Otezla] 1 each PO BID 09/11/17 Aspirin [Aspirin, Baby] 81 mg PO DAILY@0800 #0 09/13/17 Guaifenesin [Mucinex] 1,200 mg PO BID #10 tablet 09/13/17 Letrozole [Femara] 2.5 mg PO DAILY #0 09/13/17 Lisinopril [Zestril] 10 mg PO DAILY #0 09/13/17 Oseltamivir Phosphate [Tamiflu] 30 mg PO BID #5 cap 09/13/17 Following Prescrptions Were Given to Patient: Oseltamivir Phosphate [Tamiflu] 30 mg PO BID #5 cap Primary Care Physician: Stephanie Aceves DO [Primary Care Provider] - Please follow up with your Primary Care Physician in: In 1 week to follow up CBC Please Follow Up With: Stephanie Aceves DO Meaningful Use Info Meaningful Use Diagnoses (Choose all that apply): None applicable Code Visit Inpatient E&M: 30892 Disch Hosp
[2017-09-14 12:30] LABS: EBV Acute VCA IgM < 36.0 U/mL (0.0-35.9); EBV Early Antigen IgG <9.0 U/mL (0.0-8.9)
[2017-09-14 14:53] LABS: Pathologist Review Reviewed
== END 2017-09-13 16:00 | disposition home or self-care (01) | DRG 195 ==
LOC: ED 12:19 → PCU 13:21
PROVIDERS: Admitting Provider Internal Medicine; Emergency Provider Emergency Medicine; Family Provider Internal Medicine; PCP Internal Medicine; Visit Provider Internal Medicine
DX: J10.1 Influenza due to other identified influenza virus with other respiratory manifestations (principal); I95.9 Hypotension, unspecified; D70.9 Neutropenia, unspecified; D69.6 Thrombocytopenia, unspecified; D64.9 Anemia, unspecified; I25.10 Atherosclerotic heart disease of native coronary artery without angina pectoris; Z95.1 Presence of aortocoronary bypass graft; Z85.3 Personal history of malignant neoplasm of breast; R55 Syncope and collapse; Z79.899 Other long term (current) drug therapy; Z87.891 Personal history of nicotine dependence; R91.1 Solitary pulmonary nodule; M81.0 Age-related osteoporosis without current pathological fracture; J40 Bronchitis, not specified as acute or chronic; I10 Essential (primary) hypertension; E03.9 Hypothyroidism, unspecified
CPT/HCPCS: 36415; 70450; 71045; 71260; 80048; 80076; 81001; 81002; 83605; 84484; 85025; 86140; 86308; 86663; 86665; 87040; 87449; 87633; 87804; 87880; 93005; 93306; 94640; 94667; 94668; 99285; J7030; Q9967; A4216; J1447

== ENCOUNTER → 2017-09-15 14:27 | Outpatient (CLI) | payer MEDICARE, OTHER, SELFPAY ==
[2017-09-15 15:50] LABS: Absolute Lymphocyte Count 1.61 X10^3/ul (0.83-4.51); Absolute Neutrophil Count 5.3 X10^3/uL (2.0-7.7); Basophil# 0.01 X10^3/uL; Basophil% 0.1 % (0-1); Eosinophil# 0.19 X10^3/uL; Eosinophils% 2.5 % (0-5); Hemoglobin 11.3 g/dl (12.0-15.0); Lymphocyte # 1.61 X10^3/ul (4.0); Lymphocyte % 21.3 % (19-41); Mean Corp Hgb Conc 33.2 g/gl (32-36); Mean Corpuscular Hgb 28.8 pg (27.0-32.0); Mean Corpuscular Volume 86.5 fL (81-99); Mean Platelet Vol. 9.4 fl (6.2-12.0); Monocyte% 6.6 % (0-10); Neutrophil # 5.25 X10^3/uL (2.7-7.7); Neutrophil % 69.4 % (47-70); Platelet Count 172 K/mm3 (150-450); RBC Distribution Width CV 13.2 % (11.6-14.6); Red Blood Count 3.93 M/mm3 (4.2-5.4); White Blood Count 7.6 K/mm3 (4.4-11.0)
[2017-09-15 15:51] LABS: POSITIVE COUNT NO; POSITIVE DIFFERENTIAL NO; POSITIVE MORPHOLOGY NO
== END ==
PROVIDERS: Family Provider Internal Medicine; PCP Internal Medicine; Visit Provider Internal Medicine
DX: D61.818 Other pancytopenia (principal)
CPT/HCPCS: 36415; 85025

== ENCOUNTER → 2017-09-27 09:21 | Outpatient (CLI) | payer MEDICARE, OTHER, SELFPAY ==
--- NOTE | 2017-09-27 09:24 | NM_ITS ---
CLINICAL: Female, 77 years old. Breast cancer. Psoriatic arthritis. WHOLE BODY NUCLEAR BONE SCAN TECHNIQUE: Following the IV administration of 26.1 mCi of Tc MDP, whole body bone imaging was performed with a gamma camera following a three hour delay. COMPARISON STUDIES : NM - None. CR - Not available for review at this time. CT - Not available for review at this time. MR - Not available for review at this time. US - Not available for review at this time. FINDINGS: No focal areas of suspicious uptake to suggest metastatic disease. Changes consistent with degenerative disease are seen in both shoulders, both wrists, both hips, and both knees. Degenerative type changes are seen in the lower lumbar spine. NM/Bone Scan Whole Body IMPRESSION: No evidence for metastatic disease. Degenerative type changes. Electronically Signed: Navdeep Dc MD at 23:30 EDT , Service support ,
== END ==
PROVIDERS: Family Provider Internal Medicine; PCP Internal Medicine; Visit Provider Internal Medicine
DX: R63.4 Abnormal weight loss (principal); C50.919 Malignant neoplasm of unspecified site of unspecified female breast; L40.50 Arthropathic psoriasis, unspecified
CPT/HCPCS: 78306

== ENCOUNTER → 2017-09-29 13:23 | Outpatient (CLI) | payer MEDICARE, OTHER, SELFPAY ==
--- NOTE | 2017-09-29 13:25 | CT_ITS ---
STUDY: CT ABDOMEN AND PELVIS WITH CONTRAST REASON FOR EXAM: Female, 77 years old. Weight loss. Breast cancer. RADIATION DOSAGE (If Supplied By Facility): CTDIvol = ( 10.93 ) mGy, DLP = ( 419.33 ) mGycm TECHNIQUE: Transaxial images were obtained from the dome of the diaphragm to the symphysis pubis with oral contrast. 100mL ml of Isovue 300 contrast was administered. Sagittal and coronal images were reconstructed. Individualized dose optimization techniques were used for this CT. COMPARISON: None. FINDINGS: The visualized lung bases are unremarkable. The visualized portions of the heart are within normal limits. Normal shape and size of the liver. Liver cysts are seen measuring as much as 2.2 cm. There are surgical clips in the gallbladder fossa consistent with a prior cholecystectomy. There is mild splenomegaly. Normal pancreas. Normal bilateral adrenal glands. Normal right kidney. Normal left kidney. Bilateral extrarenal pelves. No stones. Normal visualized stomach. Normal small intestine. Normal colon. Fecal retention in the rectosigmoid, and impaction is not excluded. The appendix is visualized and appears normal. Normal abdominal aorta. Normal inferior vena cava. Normal retroperitoneum. Normal urinary bladder. There is absence of the uterus consistent with a prior hysterectomy. Normal abdominal wall. Normal osseous structures. CT/Abdomen/Pelvis WITH Contrast IMPRESSION: No definite acute abnormality. Fecal retention, cannot exclude impaction. Electronically Signed: Navdeep Dc MD at 18:28 EDT , Service support ,
== END ==
PROVIDERS: Family Provider Internal Medicine; PCP Internal Medicine; Visit Provider Internal Medicine
DX: R63.4 Abnormal weight loss (principal)
CPT/HCPCS: 74177; Q9967

== ENCOUNTER → 2017-11-07 08:23 | Outpatient (CLI) | payer MEDICARE, OTHER, SELFPAY ==
[2017-11-07 08:31] LABS: Absolute Lymphocyte Count 1.05 X10^3/ul (0.83-4.51); Absolute Neutrophil Count 2.5 X10^3/uL (2.0-7.7); Basophil# 0.01 X10^3/uL; Basophil% 0.2 % (0-1); Eosinophil# 0.24 X10^3/uL; Eosinophils% 5.7 % (0-5); Hemoglobin 12.4 g/dl (12.0-15.0); Lymphocyte # 1.05 X10^3/ul (4.0); Mean Corp Hgb Conc 33.5 g/gl (32-36); Mean Corpuscular Hgb 28.8 pg (27.0-32.0); Mean Platelet Vol. 8.4 fl (6.2-12.0); Monocyte# 0.39 X10^3/uL; Monocyte% 9.3 % (0-10); Neutrophil % 59.6 % (47-70); POSITIVE COUNT NO; POSITIVE DIFFERENTIAL NO; POSITIVE MORPHOLOGY NO; Platelet Count 235 K/mm3 (150-450); RBC Distribution Width CV 13.4 % (11.6-14.6); RBC Distribution Width SD 42.6 fl (35.1-43.9); White Blood Count 4.2 K/mm3 (4.4-11.0)
--- NOTE | 2017-11-07 08:43 | US_ITS ---
STUDY: ABDOMINAL ULTRASOUND - RIGHT UPPER QUADRANT REASON FOR VISIT: Female, 77 years old. Follow-up with CT dated November 29, 2017. TECHNIQUE: Ultrasound evaluation of the right upper quadrant was performed with real-time and static moy-scale imaging. TECHNICAL QUALITY: Adequate. COMPARISON: CT of the abdomen and pelvis dated September 29, 2017. FINDINGS: Liver: The liver measures 14 cm. There is normal echogenicity of the liver. The bile ducts are within normal limits. There is hepatic color flow. The direction of portal flow is hepatopetal. There is a cyst within the right lobe liver measuring 2.7 cm. Gallbladder: The patient is status post cholecystectomy. Common Bile Duct (C.B.D.): The common bile duct measures 6.8 mm. Pancreas: Normal size of the head, body and tail of the pancreas. There is normal echogenicity of the pancreas. There is no demonstrated pancreatic mass or cyst. Right Kidney: Normal size of the right kidney. The right kidney measures 9.5 x 5.6 x 4.9 cm. Normal renal cortex. The right cortex measures 1.6 cm. There is no demonstrated renal mass or cyst. There is no right hydronephrosis. US/Abdomen Limited IMPRESSION: 1. Cholecystectomy. 2. Hepatic cyst. Electronically Signed: Lisa Mak MD at 7:52 EDT , Service support ,
--- NOTE | 2017-11-07 08:43 | US_ITS ---
STUDY: ABDOMINAL ULTRASOUND - LEFT UPPER QUADRANT REASON FOR VISIT: Female, 77 years old. Follow-up of splenomegaly. TECHNIQUE: Transabdominal ultrasound was performed with real-time and static moy scale imaging. TECHNICAL QUALITY: Adequate. COMPARISON: None. FINDINGS: Spleen: There is splenomegaly. The spleen measures 13.2 x 5.2 x 5.0 cm. Left Kidney: Normal size of the left kidney. The left kidney measures 10.0 x 3.9 x 5.3 cm. Normal renal cortex. The left cortex measures 1.1 cm. There is no demonstrated renal mass or cyst. There is an extra-renal pelvis of the left kidney. There is no distention of the renal calyces. US/Spleen IMPRESSION: Mild splenomegaly. Electronically Signed: Lisa Mak MD at 4:32 EDT , Service support ,
[2017-11-07 08:44] LABS: AST(SGOT) 16 U/L (15-37); Alanine Aminotransfer ALT/SGPT 17 U/L (13-56); Albumin, Serum 3.6 g/dL (3.2-5.0); Alkaline Phosphatase 67 U/L (45-117); Anion Gap 9 (5-15); BUN 14 mg/dL (7-18); BUN/Creat Ratio 27.6 RATIO (10-20); Calcium,Total 9.1 mg/dL (8.5-10.1); Chloride 106 mmol/L (98-107); Creatinine, Serum 0.51 mg/dL (0.55-1.02); EST Glomerular Filtration Rate 125 mL/min (>60); Est Glom Filt Rate - Afr Amer 151 mL/min (>60); Globulin 3.6 g/dL (2.2-4.2); Glucose 104 mg/dL (74-106); Potassium 4.3 mmol/L (3.5-5.1); Protein, Total 7.2 g/dL (6.4-8.2); Sodium Level 142 mmol/L (136-145)
== END ==
PROVIDERS: Physician Assistant; Family Provider Internal Medicine; PCP Internal Medicine; Visit Provider Internal Medicine
DX: L40.0 Psoriasis vulgaris (principal); R16.1 Splenomegaly, not elsewhere classified; D22.39 Melanocytic nevi of other parts of face; L57.0 Actinic keratosis; Z79.899 Other long term (current) drug therapy
CPT/HCPCS: 36415; 76705; 80053; 85025

== ENCOUNTER → 2018-01-16 10:22 | Outpatient (CLI) | payer MEDICARE, OTHER, SELFPAY ==
--- NOTE | 2018-01-16 10:32 | RAD_ITS ---
STUDY: X-RAY - RIGHT SHOULDER REASON FOR EXAM: Female, 77 years old. Shoulder pain TECHNIQUE: 4 view(s) of the shoulder. COMPARISON: None. FINDINGS: There is mild degenerative arthrosis of the glenohumeral articulation. There is degenerative arthrosis of the acromioclavicular joint without inferior osseous spur formation. Normal acromion. There is demineralization of the humerus and visualized osseous structures. There is periarticular soft tissue calcification consistent with a calcific tendinitis. Normal visualized pulmonary apex. RAD/Shoulder min 2 Views IMPRESSION: Mild degenerative changes and calcific tendinitis. There is no acute displaced fracture or dislocation. There is demineralization of osseous structures. Electronically Signed: Marla Hammond MD at 4:56 EDT , Service support ,
== END ==
PROVIDERS: Family Provider Internal Medicine; PCP Internal Medicine; Visit Provider Internal Medicine
DX: M25.511 Pain in right shoulder (principal)
CPT/HCPCS: 73030

== ENCOUNTER → 2018-01-23 14:01 | Outpatient (CLI) | payer MEDICARE, OTHER, SELFPAY ==
--- NOTE | 2018-01-23 14:03 | CDU_ITS ---
Reason For Study: Carotid stenosis Rt. Velocities/BP Lt. Velocities/BP Prox CCA 84.4/16.4 cm/sec. Prox CCA 97.9/15.8 cm/sec. Mid CCA 83.8/17.0 cm/sec. Mid CCA 89.1/16.4 cm/sec. Dist CCA 87.9/18.2 cm/sec. Dist CCA 78.0/18.8 cm/sec. Prox ICA 65.7/17.0 cm/sec. Prox ICA 73.9/23.5 cm/sec. Mid ICA 93.8/18.8 cm/sec. Mid ICA 70.1/23.6 cm/sec. Dist ICA 65.1/16.7 cm/sec. Dist ICA 69.3/17.9 cm/sec. Rt. ICA/CCA = 1.1. Lt. ICA/CCA = .83. Prox ECA 89.7/13.5 cm/sec. Prox ECA 83.3/11.1 cm/sec. Rt. Vert. 42.2/13.5 cm/sec. Lt. Vert. 52.8/11.1 cm/sec. Right Extracranial There is intimal thickening but no significant atherosclerotic plaque noted in the right common carotid artery. There is heterogeneous, irregular atherosclerotic plaque noted in the right internal carotid artery. There is intimal thickening but no significant atherosclerotic plaque noted in the right external carotid artery. Antegrade flow is noted in the right vertebral artery. Left Extracranial There is intimal thickening but no significant atherosclerotic plaque noted in the left common carotid artery. There is no significant atherosclerotic plaque noted in the left internal carotid artery. There is no significant atherosclerotic plaque noted in the left external carotid artery. Antegrade flow is noted in the left vertebral artery. There is heterogeneous, irregular atherosclerotic plaque noted in the left bulb. Procedure Carotid Duplex [id number]. Exam performed in department. Interpretation Summary Mild (<50%) stenosis right extracranial internal carotid. No significant atherosclerotic plaque or stenosis noted in the left internal carotid artery. Flow within the vertebral arteries is antegrade bilaterally. Heterogeneous, irregular atherosclerotic plaque is noted in the left carotid bulb, which is not hemodynamically significant. Ordering Physician: Stephanie Aceves Referring Physician: Stephanie Aceves Performed By: Ann Kidd RVT
== END ==
PROVIDERS: Family Provider Internal Medicine; PCP Internal Medicine; Visit Provider Internal Medicine
DX: I65.23 Occlusion and stenosis of bilateral carotid arteries (principal)
CPT/HCPCS: 93880

== ENCOUNTER → 2018-05-01 07:53 | Outpatient (CLI) | payer MEDICARE, OTHER, SELFPAY ==
[2018-05-01 08:00] LABS: Bacteria 0 SEEN /hpf (None Seen); Mucous, Urine 0 SEEN /hpf (<or=2+); Red Blood Cells-Urine 0 SEEN /hpf (0-5); White Blood Cells 0 SEEN /hpf (0-5)
[2018-05-01 10:04] LABS: Color, Urine Yellow (Yellow); Glucose, Dipstick Normal (Normal); Ketone-Dipstick Negative (Negative); Leukocyte Esterase-Dipstick Negative /ul (Negative); Nitrite-Dipstick Negative (Negative); Occult Blood-Urine Negative /ul (Negative); Protein-Dipstick Negative (Negative); Urine Bilirubin Dipstick Negative (Negative); Urine Clarity Sl. Cloudy (Clear); Urine Urobilinogen Normal (Normal)
[2018-05-01 10:13] LABS: Squamous Epithelial Cells - UA 0-5 SEEN /hpf (5-10)
[2018-05-01 10:27] LABS: Microalbumin,Random Urine 8.3 mg/L (NO RANGE EST.); Microalbumin:Creatinine Ratio 14.3 mg/g CRE (<30 mg/g CRE)
[2018-05-01 10:30] LABS: Hemoglobin A1c 4.9 % (4.2-6.3)
[2018-05-01 10:52] LABS: Cholesterol 178 mg/dL (200); High Density Lipoprotein 58 mg/dL; Thyroid Stim Hormone (TSH) 0.13 uIU/mL (0.358-3.74); Triglycerides 93 mg/dL; Very Low Density Lipoprotein 19 mg/dL (5-40)
== END ==
PROVIDERS: Family Provider Internal Medicine; PCP Internal Medicine; Referring Provider Internal Medicine; Visit Provider Internal Medicine
DX: E03.9 Hypothyroidism, unspecified (principal); E78.49 Other hyperlipidemia; R73.01 Impaired fasting glucose
CPT/HCPCS: 36415; 80061; 81001; 82043; 82570; 83036; 84443

== ENCOUNTER → 2018-05-15 12:44 | Outpatient (CLI) | payer MEDICARE, OTHER, SELFPAY ==
--- NOTE | 2018-05-15 12:55 | BD_ITS ---
STUDY: DUAL ENERGY X-RAY ABSORPTIOMETRY / DXA REASON FOR EXAM: Female, 78 years old. Early menopause. No loss of height. TECHNIQUE: Bone Mineral Density (BMD) measurements of lumbar spine and right hip were obtained. COMPARISON: Comparison is made with prior study dated April 14, 2016. FINDINGS: Lumbar Spine (L1-L4): g/cm2 (1.134) / T-score (-0.4) / Z-score (1.4) Findings are suggestive of normal bone density with a low fracture risk. Right Femur Total: g/cm2 (0.754) / T-score (-2.0) / Z-score (-0.1) Right Femoral Neck: g/cm2 (0.693) / T-score (-2.5) / Z-score (-0.4) The T-Scores on the most recent prior examination were: Lumbar Spine (L1-L4): There has been worsening of bone density since the previous examination. Right Femur Total: which represents a worsening of 3.8%. BD/Dexa Bone Density Study IMPRESSION: The patient is considered osteoporotic as outlined below according to World Mason Organization (WHO) criteria with a high fracture risk. There has been worsening of bone density since the previous examination. Reference Information: The T-score is the number of standard deviations above or below the standard which is normal for young adults at their peak bone mineral density. The World Health Organization (WHO) interprets the T-scores as follows: Above -1 Normal bone density Between -1 and -2.5 Osteopenia Equal to / or below -2.5 Osteoporosis As a practical clinical guideline, osteopenia may be graded as follows: Mild -1 through -1.5 Moderate -1.6 through -2.0 Severe -2.1 through -2.4 The Z-score is the number of standard deviations above or below age-matched controls. A Z-score of less than -1.5 would be considered abnormal. References: 1. NIH Osteoporosis and Related Bone Diseases http://www.osteo.org 2. International Society for Clinical Densitometry http://www.iscd.org 3. National Osteoporosis Foundation http://www.nof.org Electronically Signed: Nirav Lane MD at 15:48 EST Tel [phone], Service support ,
== END ==
PROVIDERS: Family Provider Internal Medicine; PCP Internal Medicine; Referring Provider Internal Medicine; Visit Provider Internal Medicine
DX: Z78.0 Asymptomatic menopausal state (principal); M81.0 Age-related osteoporosis without current pathological fracture
CPT/HCPCS: 77080

== ENCOUNTER → 2018-07-05 14:39 | Outpatient (CLI) | payer MEDICARE, OTHER, SELFPAY ==
--- NOTE | 2018-07-05 14:44 | BI_ITS ---
MAMMOGRAPHY - BILATERAL SCREENING REASON FOR EXAM: Female, 78 years old. Routine annual screening examination. PERTINENT HISTORY: Personal history of breast cancer. Prior right lumpectomy with radiation treatment. TECHNIQUE: Digital bilateral breast bear (3D mammographic acquisition) in the CC and MLO projections. 2-D mediolateral oblique (MLO) and craniocaudad (CC) views of both breasts were obtained. CAD: Full Field Digital Mammography with Computer Added Detection was performed. COMPARISON: Comparison is made with prior study dated June 03, 2017 and November 11, 2016. FINDINGS: Breast Composition: The breasts are heterogeneously dense, which may obscure small masses. There are no dominant masses or suspicious calcifications. Stable focal area of architectural distortion is seen in the deep midportion of the right breast and compared with prior lumpectomy. No other significant abnormalities are identified. There has been no significant change since the prior study. BI/SCREENING MAMM (CAD), BILAT IMPRESSION: Stable bilateral screening mammogram. Yearly follow-up mammogram recommended. (A) ASSESSMENT CATEGORY: BIRADS Category 2: Benign. A letter regarding these results will be sent to the patient by the facility within 30 days. Approximately 10% of breast cancers are not detected by mammography. A normal mammogram should not delay biopsy of a clinically suspicious abnormality. [id number] Electronically Signed: Nirav Lane MD at 8:08 EST Tel [phone], Service support ,
== END ==
PROVIDERS: Family Provider Internal Medicine; PCP Internal Medicine; Referring Provider Nurse Practitioner; Visit Provider Nurse Practitioner
DX: Z12.31 Encounter for screening mammogram for malignant neoplasm of breast (principal); Z85.3 Personal history of malignant neoplasm of breast
CPT/HCPCS: 77063; 77067

== ENCOUNTER → 2018-08-08 09:11 | Outpatient (CLI) | payer MEDICARE, OTHER, SELFPAY ==
[2018-08-08 10:56] LABS: Absolute Lymphocyte Count 1.09 X10^3/ul (0.83-4.51); Absolute Neutrophil Count 2.9 X10^3/uL (2.0-7.7); Basophil# 0.03 X10^3/uL; Basophil% 0.6 % (0-1); Eosinophil# 0.23 X10^3/uL; Eosinophils% 4.9 % (0-5); Hematocrit 38.1 % (37-47); Hemoglobin 12.7 g/dl (12.0-15.0); Lymphocyte # 1.09 X10^3/ul (4.0); Lymphocyte % 23.1 % (19-41); Mean Corp Hgb Conc 33.3 g/gl (32-36); Mean Corpuscular Hgb 29.3 pg (27.0-32.0); Mean Corpuscular Volume 87.8 fL (81-99); Mean Platelet Vol. 8.9 fl (6.2-12.0); Monocyte# 0.47 X10^3/uL; Neutrophil # 2.88 X10^3/uL (2.7-7.7); Neutrophil % 61.2 % (47-70); Platelet Count 229 K/mm3 (150-450); RBC Distribution Width CV 13.4 % (11.6-14.6); RBC Distribution Width SD 41.6 fl (35.1-43.9); Red Blood Count 4.34 M/mm3 (4.2-5.4); White Blood Count 4.7 K/mm3 (4.4-11.0)
[2018-08-08 10:57] LABS: POSITIVE COUNT NO; POSITIVE DIFFERENTIAL NO; POSITIVE MORPHOLOGY NO
[2018-08-08 11:23] LABS: Vitamin D,25 Hydroxy 35.9 ng/mL (29.95-100.01)
[2018-08-08 11:33] LABS: ALB/GLOB Ratio 1.1 RATIO (0.9-2.4); AST(SGOT) 15 U/L (15-37); Alanine Aminotransfer ALT/SGPT 17 U/L (13-56); Albumin, Serum 3.6 g/dL (3.2-5.0); Alkaline Phosphatase 68 U/L (45-117); Anion Gap 9 (5-15); BUN 12 mg/dL (7-18); BUN/Creat Ratio 25.4 RATIO (10-20); Chloride 107 mmol/L (98-107); Cholesterol 164 mg/dL (200); Creatinine, Serum 0.47 mg/dL (0.55-1.02); EST Glomerular Filtration Rate 135 mL/min (>60); Est Glom Filt Rate - Afr Amer 164 mL/min (>60); Globulin 3.3 g/dL (2.2-4.2); Glucose 96 mg/dL (74-106); High Density Lipoprotein 53 mg/dL; Potassium 3.8 mmol/L (3.5-5.1); Protein, Total 6.9 g/dL (6.4-8.2); Sodium Level 142 mmol/L (136-145); Thyroid Stim Hormone (TSH) 0.42 uIU/mL (0.358-3.74); Triglycerides 137 mg/dL; Very Low Density Lipoprotein 27 mg/dL (5-40)
== END ==
PROVIDERS: Family Provider Internal Medicine; PCP Internal Medicine; Referring Provider Internal Medicine; Visit Provider Internal Medicine
DX: D51.0 Vitamin B12 deficiency anemia due to intrinsic factor deficiency (principal); R73.01 Impaired fasting glucose; E55.9 Vitamin D deficiency, unspecified; E78.49 Other hyperlipidemia; E03.9 Hypothyroidism, unspecified
CPT/HCPCS: 36415; 80053; 80061; 82306; 84443; 85025

== ENCOUNTER → 2018-08-31 14:32 | Outpatient (CLI) | payer MEDICARE, OTHER, SELFPAY ==
[2018-08-31 14:41] VITALS: BP 117/55; PULSE 52; RESP 16; TEMP 36.5; O2SAT 96; BMI 22.1
[2018-08-31] MEDS: DENOSUMAB 60 MG/ML ML SQ (14:52)
== END ==
PROVIDERS: Family Provider Internal Medicine; PCP Internal Medicine; Referring Provider Internal Medicine; Visit Provider Internal Medicine
DX: M81.0 Age-related osteoporosis without current pathological fracture (principal)
CPT/HCPCS: 96372; J0897

== ENCOUNTER → 2018-09-27 06:22 | Outpatient (CLI) | payer MEDICARE, OTHER, SELFPAY ==
[2018-09-03 14:57] VITALS: BMI 22.1
--- NOTE | 2018-09-27 18:50 | STRESSREP_ITS ---
Stress Test Report Date: 09-27-18 Procedure: Pharmacologic stress nuclear imaging study Indications: CAD; status post CABG Consent: Per the patient Procedure: The patient underwent pharmacologic (Regadenoson) evaluation with a peak heart rate of 106 beats per minute (74 %predicted maximal heart rate) and a peak blood pressure of 140/70 mmHg. The baseline ECG demonstrated normal sinus rhythm; nonspecific T wave abnormality. The peak pharmacologic ECG demonstrated continued nonspecific T wave abnormality. There were no cardiac dysrhythmias pretest, during pharmacologic infusion, or recovery. There was no complaint of chest discomfort during pharmacologic infusion or recovery. The examination was discontinued secondary to completion of protocol. Impression: 1. Pharmacologic (Regadenoson) evaluation 2. Peak pharmacologic ECG with continued nonspecific T wave abnormality. 3. There were no cardiac dysrhythmias pretest, during pharmacologic infusion, or recovery. 4. Nuclear images pending Myocardial perfusion imaging study: Technique: The patient was injected with 11.4 millicuries of technetium 99m Cardiolite and subsequently rest SPECT Cardiolite nuclear imaging was obtained in the horizontal long, vertical long, and short axis views. The patient underwent pharmacologic (Regadenoson) evaluation with a peak heart rate of 106 beats per minute (74 % percent predicted maximal heart rate) and a peak blood pressure of 140/70 mmHg. The patient was injected with 33.3 millicuries of technetium 99m Cardiolite and subsequently stress SPECT Cardiolite nuclear imaging was obtained in the horizontal long, vertical long, and short axis views. A gated Cardiolite study at peak stress was obtained. Interpretation: Rest and stress SPECT Cardiolite nuclear imaging status post realignment, normalization, and attenuation correction demonstrate relative uniform tracer uptake and myocardial perfusion appearing within normal limits. There is end systolic thickening and brightening. The gated Cardiolite study demonstrates myocardial thickening and inward wall motion. The reported LVEF is 73 %. Impression: 1. Rest and stress SPECT Cardiolite nuclear imaging demonstrate relative uniform tracer uptake and myocardial perfusion appearing within normal limits. 2. The gated Cardiolite study reports an LVEF of 73 %. This note was generated with [employer]ation software. It may contain incorrect words, spelling, and punctuation that were not noted in checking the note before signing.
== END ==
PROVIDERS: Family Provider Internal Medicine; PCP Internal Medicine; Referring Provider Internal Medicine Cardiovascular Disease; Visit Provider Internal Medicine Cardiovascular Disease
DX: I25.10 Atherosclerotic heart disease of native coronary artery without angina pectoris (principal); I10 Essential (primary) hypertension; E78.00 Pure hypercholesterolemia, unspecified; Z95.1 Presence of aortocoronary bypass graft
CPT/HCPCS: 78452; 93017; A9500; A4216; J2785

== ENCOUNTER → 2018-12-10 14:41 | Outpatient (CLI) | payer MEDICARE, OTHER, SELFPAY ==
[2018-09-03 14:57] VITALS: BMI 22.1
[2018-12-10 15:58] LABS: Absolute Lymphocyte Count 1.72 X10^3/ul (0.83-4.51); Basophil# 0.01 X10^3/uL; Basophil% 0.2 % (0-1); Eosinophil# 0.27 X10^3/uL; Eosinophils% 4.9 % (0-5); Hematocrit 36.3 % (37-47); Hemoglobin 12.5 g/dl (12.0-15.0); Lymphocyte # 1.72 X10^3/ul (4.0); Mean Corp Hgb Conc 34.4 g/gl (32-36); Mean Corpuscular Hgb 29.3 pg (27.0-32.0); Mean Platelet Vol. 8.9 fl (6.2-12.0); Neutrophil # 3.04 X10^3/uL (2.7-7.7); Neutrophil % 54.7 % (47-70); Platelet Count 253 K/mm3 (150-450); RBC Distribution Width SD 39.7 fl (35.1-43.9); Red Blood Count 4.27 M/mm3 (4.2-5.4); White Blood Count 5.6 K/mm3 (4.4-11.0)
[2018-12-10 16:01] LABS: POSITIVE COUNT NO; POSITIVE DIFFERENTIAL NO; POSITIVE MORPHOLOGY NO
[2018-12-10 16:16] LABS: Erythrocyte Sedimentation Rate 12 mm/hr (0-30)
[2018-12-10 16:27] LABS: AST(SGOT) 22 U/L (15-37); Alanine Aminotransfer ALT/SGPT 24 U/L (13-56); Albumin, Serum 3.8 g/dL (3.2-5.0); Alkaline Phosphatase 49 U/L (45-117); Anion Gap 10 (5-15); BUN 10 mg/dL (7-18); BUN/Creat Ratio 22.3 RATIO (10-20); CRP 5.23 mg/L (0.0-3.0); Calcium,Total 9.1 mg/dL (8.5-10.1); Chloride 103 mmol/L (98-107); Creatinine, Serum 0.45 mg/dL (0.55-1.02); EST Glomerular Filtration Rate 144 mL/min (>60); Est Glom Filt Rate - Afr Amer 174 mL/min (>60); Globulin 3.7 g/dL (2.2-4.2); Glucose 90 mg/dL (74-106); Potassium 3.6 mmol/L (3.5-5.1); Protein, Total 7.5 g/dL (6.4-8.2); Sodium Level 141 mmol/L (136-145)
[2018-12-12 04:07] LABS: HEPATITIS B SURFACE AG Negative (Negative)
[2018-12-12 11:07] LABS: Hep B Surface Antibodies Reactive (.); Hep C Antibodies <0.1 s/co ratio (0.0-0.9); Hepatitis B Core AB IgM Negative (Negative)
== END ==
PROVIDERS: Family Provider Internal Medicine; PCP Internal Medicine; Referring Provider Internal Medicine Rheumatology; Visit Provider Internal Medicine Rheumatology
DX: L40.59 Other psoriatic arthropathy (principal); Z79.899 Other long term (current) drug therapy
CPT/HCPCS: 36415; 80053; 85025; 85652; 86140; 86705; 86706; 86803; 87340

== ENCOUNTER → 2019-01-16 13:06 | Outpatient (CLI) | payer MEDICARE, OTHER, SELFPAY ==
[2018-09-03 14:57] VITALS: BMI 22.1
--- NOTE | 2019-01-16 13:10 | CDU_ITS ---
Reason For Study: Carotid stenosis Rt. Velocities/BP Lt. Velocities/BP Prox CCA 91.7/16 cm/sec. Prox CCA 125.7/22.6 cm/sec. Mid CCA 85.2/16 cm/sec. Mid CCA 83.9/18.8 cm/sec. Dist CCA 79.9/18.6 cm/sec. Dist CCA 70.4/16.3 cm/sec. Prox ICA 85.2/17.3 cm/sec. Prox ICA 75.3/18.8 cm/sec. Mid ICA 98.2/23.9 cm/sec. Mid ICA 80.2/26.2 cm/sec. Dist ICA 104/23 cm/sec. Dist ICA 83.9/22.5 cm/sec. Rt. ICA/CCA = 1.2. Lt. ICA/CCA = 1.0. Prox ECA 89.1/5.6 cm/sec. Prox ECA 86.3/5.3 cm/sec. Rt. Vert. 54.1/11.6 cm/sec. Lt. Vert. 56/11.6 cm/sec. Right Extracranial There is intimal thickening but no significant atherosclerotic plaque noted in the right common carotid artery. There is heterogeneous, irregular atherosclerotic plaque noted in the right internal carotid artery. There is intimal thickening but no significant atherosclerotic plaque noted in the right external carotid artery. Antegrade flow is noted in the right vertebral artery. Left Extracranial There is intimal thickening but no significant atherosclerotic plaque noted in the left common carotid artery. There is heterogeneous, irregular atherosclerotic plaque noted in the left internal carotid artery. There is intimal thickening but no significant atherosclerotic plaque noted in the left external carotid artery. Antegrade flow is noted in the left vertebral artery. Procedure Carotid Duplex [id number]. Exam performed in department. Interpretation Summary Mild (<50%) stenosis right extracranial internal carotid. Mild (<50%) stenosis left extracranial internal carotid. Flow within the vertebral arteries is antegrade bilaterally. Ordering Physician: Stephanie Aceves Referring Physician: Stephanie Aceves Performed By: Hermelinda Gibson RVT
== END ==
PROVIDERS: Family Provider Internal Medicine; PCP Internal Medicine; Referring Provider Internal Medicine; Visit Provider Internal Medicine
DX: I65.21 Occlusion and stenosis of right carotid artery (principal)
CPT/HCPCS: 93880

== ENCOUNTER → 2019-03-11 12:27 | Outpatient (CLI) | payer MEDICARE, OTHER, SELFPAY ==
[2018-09-03 14:57] VITALS: BMI 22.1
[2019-03-11 12:37] VITALS: BP 119/53; PULSE 48; RESP 16; TEMP 36.6; O2SAT 99; BMI 22.6
[2019-03-11] MEDS: DENOSUMAB 60 MG/ML ML SQ (12:48)
== END ==
PROVIDERS: Family Provider Internal Medicine; PCP Internal Medicine; Referring Provider Internal Medicine; Visit Provider Internal Medicine
DX: M81.0 Age-related osteoporosis without current pathological fracture (principal)
CPT/HCPCS: 96372; J0897

== ENCOUNTER → 2019-03-12 10:26 | Outpatient (CLI) | payer MEDICARE, OTHER, SELFPAY ==
[2019-03-11 12:37] VITALS: BMI 22.6
--- NOTE | 2019-03-12 10:30 | US_ITS ---
STUDY: ABDOMINAL ULTRASOUND -LEFT UPPER QUADRANT REASON FOR VISIT: Female, 78 years old. Splenomegaly TECHNIQUE: Ultrasound evaluation of the left upper quadrant was performed with real-time and static moy-scale imaging. TECHNICAL QUALITY: Adequate. COMPARISON: 11/07/2017 FINDINGS: The spleen has decreased in size slightly compared to prior study, now measuring 12.5 x 5.5 x 5.1 cm. The left kidney is unremarkable, measuring 10.0 x 5.2 x 4.2 cm. The cortex is 1.1 cm thick. No hydronephrosis. No free fluid is seen in the left upper quadrant. US/Spleen IMPRESSION: The spleen has decreased in size slightly compared to prior study. Electronically Signed: Yovani Bolton MD at 17:45 EDT Tel , Service support ,
== END ==
PROVIDERS: Family Provider Internal Medicine; PCP Internal Medicine; Referring Provider Internal Medicine; Visit Provider Internal Medicine
DX: R16.1 Splenomegaly, not elsewhere classified (principal)
CPT/HCPCS: 76705

== ENCOUNTER → 2019-07-08 13:04 | Outpatient (CLI) | payer MEDICARE, OTHER, SELFPAY ==
[2019-03-20 14:53] VITALS: BMI 23.0
--- NOTE | 2019-07-08 13:05 | BI_ITS ---
MAMMOGRAPHY - BILATERAL SCREENING REASON FOR EXAM: Female, 79 years old. Routine annual screening examination. PERTINENT HISTORY: Personal history of breast cancer. Prior right lumpectomy with radiation treatment. TECHNIQUE: Digital bilateral breast jinny (3D mammographic acquisition) in the CC and MLO projections. 2-D mediolateral oblique (MLO) and craniocaudad (CC) views of both breasts were obtained. CAD: Full Field Digital Mammography with Computer Added Detection was performed. COMPARISON: Comparison is made with prior examination dated July 05, 2018 and June 03, 2017. FINDINGS: Breast Composition: The breasts are heterogeneously dense, which may obscure small masses. There are no dominant masses or suspicious calcifications. Stable focal scarring in the deep lateral aspect of the right breast in keeping with the prior lumpectomy. Stable bilateral vascular calcifications. No other significant abnormalities are identified. There has been no significant change since the prior study. BI/SCREEN MAMM (CAD) W/JINNY BILAT IMPRESSION: Stable bilateral screening mammogram. Yearly follow-up mammogram recommended. (A) ASSESSMENT CATEGORY: BIRADS Category 2: Benign. A letter regarding these results will be sent to the patient by the facility within 30 days. Approximately 10% of breast cancers are not detected by mammography. A normal mammogram should not delay biopsy of a clinically suspicious abnormality. [id number] Electronically Signed: Nirav Lane, at 14:05 EST , Service support ,
== END ==
PROVIDERS: Family Provider Internal Medicine; PCP Internal Medicine; Referring Provider Nurse Practitioner; Visit Provider Nurse Practitioner
DX: Z12.31 Encounter for screening mammogram for malignant neoplasm of breast (principal); C50.311 Malignant neoplasm of lower-inner quadrant of right female breast; Z71.0 Person encountering health services to consult on behalf of another person
CPT/HCPCS: 77063; 77067

== ENCOUNTER → 2020-01-21 12:40 | Outpatient (CLI) | payer MEDICARE, OTHER, SELFPAY ==
[2019-12-23 14:33] VITALS: BMI 23.8
[2020-01-21 13:05] VITALS: BP 127/72; PULSE 53; RESP 16; TEMP 36.6; BMI 23.8
[2020-01-21] MEDS: DENOSUMAB 60 MG/ML SQ (13:14)
== END ==
PROVIDERS: PCP Internal Medicine; Referring Provider Internal Medicine; Visit Provider Internal Medicine
DX: M81.0 Age-related osteoporosis without current pathological fracture (principal)
CPT/HCPCS: 96372; J0897

== ENCOUNTER → 2020-01-23 12:58 | Outpatient (CLI) | payer MEDICARE, OTHER, SELFPAY ==
[2019-12-23 14:33] VITALS: BMI 23.8
[2020-01-21 13:05] VITALS: BMI 23.8
--- NOTE | 2020-01-23 13:04 | CDU_ITS ---
Reason For Study: carotid stenosis Rt. Velocities/BP Lt. Velocities/BP Prox CCA 90.4/10.8 cm/sec. Prox CCA 108.4/16.3 cm/sec. Mid CCA 85.2/16.0 cm/sec. Mid CCA 79.0/16.3 cm/sec. Dist CCA 72.1/13.4 cm/sec. Dist CCA 75.3/13.9 cm/sec. Prox ICA 81.2/20.0 cm/sec. Prox ICA 50.7/13.9 cm/sec. Mid ICA 119.3/29.8 cm/sec. Mid ICA 90.0/22.5 cm/sec. Dist ICA 132.1/33.4 cm/sec. Dist ICA 98.6/27.4 cm/sec. Rt. ICA/CCA = 1.6. Lt. ICA/CCA = 1.2. Prox ECA 86.5/10.8 cm/sec. Prox ECA 83.9/9.0 cm/sec. Rt. Vert. 47.6/11.3 cm/sec. Lt. Vert. 55.6/13.9 cm/sec. Right Extracranial There is intimal thickening but no significant atherosclerotic plaque noted in the right common carotid artery. There is heterogeneous, irregular atherosclerotic plaque noted in the right internal carotid artery. There is intimal thickening but no significant atherosclerotic plaque noted in the right external carotid artery. Antegrade flow is noted in the right vertebral artery. Left Extracranial There is intimal thickening but no significant atherosclerotic plaque noted in the left common carotid artery. There is heterogeneous, irregular atherosclerotic plaque noted in the left internal carotid artery. There is intimal thickening but no significant atherosclerotic plaque noted in the left external carotid artery. Antegrade flow is noted in the left vertebral artery. Procedure Carotid Duplex [id number]. The exam was diagnostic. Exam performed in department. Interpretation Summary Mild (<50%) stenosis right extracranial internal carotid. Mild (<50%) stenosis left extracranial internal carotid. Flow within the vertebral arteries is antegrade bilaterally. Ordering Physician: Stephanie Aceves Performed By: Sonido Estes RVT
== END ==
PROVIDERS: PCP Internal Medicine; Referring Provider Internal Medicine; Visit Provider Internal Medicine
DX: I65.23 Occlusion and stenosis of bilateral carotid arteries (principal)
CPT/HCPCS: 93880

== ENCOUNTER → 2020-07-09 10:55 | Outpatient (CLI) | payer MEDICARE, OTHER, SELFPAY ==
[2020-01-21 13:05] VITALS: BMI 23.8
--- NOTE | 2020-07-09 10:59 | BI_ITS ---
MAMMOGRAPHY - BILATERAL SCREENING REASON FOR EXAM: Female, 80 years old. Routine annual screening examination. PERTINENT HISTORY: Personal history of breast cancer. Prior right lumpectomy and radiation therapy. TECHNIQUE: Digital bilateral breast jinny (3D mammographic acquisition) in the CC and MLO projections. 2-D mediolateral oblique (MLO) and craniocaudad (CC) views of both breasts were obtained. CAD: Full Field Digital Mammography with Computer Added Detection was performed. COMPARISON: Comparison is made with prior study dated 07/08/2019 and 07/05/2018. FINDINGS: Breast Composition: The breasts are heterogeneously dense, which may obscure small masses. There are no dominant masses or suspicious calcifications. Stable focal scarring in the deep lateral aspect of the right breast in comparison with prior lumpectomy. Stable bilateral vascular calcifications. No other significant abnormalities are identified. There has been no significant change since the prior study. BI/SCREEN MAMM (CAD) W/JINNY BILAT IMPRESSION: Stable bilateral screening mammogram. Yearly follow-up mammogram recommended. (A) ASSESSMENT CATEGORY: BIRADS Category 2: Benign. A letter regarding these results will be sent to the patient by the facility within 30 days. Approximately 10% of breast cancers are not detected by mammography. A normal mammogram should not delay biopsy of a clinically suspicious abnormality. [id number] Electronically Signed: Nirav Lane, at 12:12 EST , Service support ,
== END ==
PROVIDERS: PCP Internal Medicine; Visit Provider Nurse Practitioner
DX: Z12.31 Encounter for screening mammogram for malignant neoplasm of breast (principal); C50.911 Malignant neoplasm of unspecified site of right female breast
CPT/HCPCS: 77063; 77067

== ENCOUNTER → 2020-07-20 08:50 | Outpatient (CLI) | payer MEDICARE, OTHER, SELFPAY ==
[2020-01-21 13:05] VITALS: BMI 23.8
[2020-07-20 08:59] LABS: Mucous, Urine 0 SEEN /hpf (<or=2+); Red Blood Cells-Urine 0 SEEN /hpf (0-5); White Blood Cells 0 SEEN /hpf (0-5)
[2020-07-20 09:40] LABS: Color, Urine Yellow (Yellow); Glucose, Dipstick Normal (Normal); Ketone-Dipstick Negative (Negative); Leukocyte Esterase-Dipstick Negative /ul (Negative); Nitrite-Dipstick Negative (Negative); Occult Blood-Urine Negative /ul (Negative); Protein-Dipstick Negative (Negative); Urine Bilirubin Dipstick Negative (Negative); Urine Clarity Clear (Clear); Urine Urobilinogen Normal (Normal); Urine pH 6.5 (5.0 - 8.0)
[2020-07-20 09:47] LABS: Erythrocyte Sedimentation Rate 6 mm/hr (0-30)
[2020-07-20 09:49] LABS: Absolute Lymphocyte Count 0.91 X10^3/uL (0.83-4.51); Absolute Neutrophil Count 2.9 X10^3/uL (2.0-7.7); Bacteria RARE /hpf (None Seen); Basophil# 0.02 X10^3/uL; Basophil% 0.4 % (0-1); Eosinophil# 0.26 X10^3/uL; Eosinophils% 5.8 % (0-5); Hematocrit 37.7 % (37-47); Hemoglobin 12.7 g/dL (12.0-15.0); Lymphocyte # 0.91 X10^3/ul (4.0); Lymphocyte % 20.4 % (19-41); Mean Corp Hgb Conc 33.7 g/dL (32-36); Mean Corpuscular Hgb 29.4 pg (27.0-32.0); Mean Corpuscular Volume 87.3 fL (81-99); Mean Platelet Vol. 9.2 fl (6.2-12.0); Monocyte# 0.37 X10^3/uL; Monocyte% 8.3 % (0-10); NRBC Flagged by Analyzer 0 % (0-5); Neutrophil # 2.88 X10^3/uL (2.7-7.7); Neutrophil % 64.4 % (47-70); Platelet Count 252 K/mm3 (150-450); RBC Distribution Width CV 13.2 % (11.6-14.6); RBC Distribution Width SD 42.4 fl (35.1-43.9); Red Blood Count 4.32 M/mm3 (4.2-5.4); Squamous Epithelial Cells - UA 0-5 SEEN /hpf (5-10); White Blood Count 4.5 K/mm3 (4.4-11.0)
[2020-07-20 10:02] LABS: Hemoglobin A1c 5.2 % (3.8-5.6)
[2020-07-20 10:33] LABS: AST(SGOT) 16 U/L (15-37); Alanine Aminotransfer ALT/SGPT 25 U/L (13-56); Albumin, Serum 3.6 g/dL (3.2-5.0); Alkaline Phosphatase 57 U/L (45-117); Anion Gap 6 (5-15); BUN 14 mg/dL (7-18); BUN/Creat Ratio 29.2 RATIO (10-20); Chloride 107 mmol/L (98-107); Cholesterol 173 mg/dL (200); Creatinine, Serum 0.48 mg/dL (0.55-1.02); EST Glomerular Filtration Rate 133 mL/min (>60); Est Glom Filt Rate - Afr Amer 160 mL/min (>60); Globulin 3.7 g/dL (2.2-4.2); Glucose 105 mg/dL (74-106); High Density Lipoprotein 60 mg/dL; Protein, Total 7.3 g/dL (6.4-8.2); Sodium Level 139 mmol/L (136-145); Triglycerides 146 mg/dL; Very Low Density Lipoprotein 29 mg/dL (5-40)
[2020-07-20 10:34] LABS: CRP 3.99 mg/L (0.0-3.0)
== END ==
PROVIDERS: PCP Internal Medicine; Referring Provider Internal Medicine; Visit Provider Internal Medicine
DX: Z00.00 Encounter for general adult medical examination without abnormal findings (principal); I25.10 Atherosclerotic heart disease of native coronary artery without angina pectoris; R79.82 Elevated C-reactive protein (CRP); R73.01 Impaired fasting glucose
CPT/HCPCS: 36415; 80053; 80061; 81001; 83036; 85025; 85652; 86140

== ENCOUNTER → 2020-07-21 12:58 | Outpatient (CLI) | payer MEDICARE, OTHER, SELFPAY ==
[2019-12-23 14:33] VITALS: BMI 23.8
[2020-01-21 13:05] VITALS: BMI 23.8
[2020-07-21 13:06] VITALS: BP 122/43; PULSE 61; RESP 16; TEMP 36.1; O2SAT 100; BMI 23.8
[2020-07-21] MEDS: DENOSUMAB 60 MG/ML SQ (13:08)
== END ==
PROVIDERS: PCP Internal Medicine; Referring Provider Internal Medicine; Visit Provider Internal Medicine
DX: M81.0 Age-related osteoporosis without current pathological fracture (principal)
CPT/HCPCS: 96372; J0897

== ENCOUNTER 2020-07-24 10:33 | Outpatient (RCR) | payer MEDICARE, OTHER, SELFPAY ==
[2020-07-21 13:06] VITALS: BMI 23.8
== END 2020-07-24 23:59 ==
LOC: IMMUN 10:33
PROVIDERS: PCP Internal Medicine; Visit Provider Family Medicine
DX: Z23 Encounter for immunization (principal)
CPT/HCPCS: 0011A; 0012A; 91301

== ENCOUNTER 2020-09-22 22:10 | Emergency (ER) | payer MEDICARE, OTHER, SELFPAY ==
[2020-08-14 11:24] VITALS: BMI 24.4
[2020-09-22 22:11] VITALS: RESP 18; TEMP 36.2; BMI 27.3
[2020-09-22 22:15] VITALS: BP 154/84; PULSE 65; RESP 16; O2SAT 98
[2020-09-22 22:35] LABS: Absolute Lymphocyte Count 1.43 X10^3/uL (0.83-4.51); Absolute Neutrophil Count 4.3 X10^3/uL (2.0-7.7); Basophil# 0.03 X10^3/uL; Basophil% 0.4 % (0-1); Eosinophil# 0.29 X10^3/uL; Eosinophils% 4.3 % (0-5); Hematocrit 35.8 % (37-47); Hemoglobin 11.8 g/dL (12.0-15.0); Lymphocyte # 1.43 X10^3/ul (4.0); Lymphocyte % 21.3 % (19-41); Mean Corpuscular Hgb 29.4 pg (27.0-32.0); Mean Corpuscular Volume 89.1 fL (81-99); Mean Platelet Vol. 9.3 fl (6.2-12.0); Monocyte# 0.59 X10^3/uL; Monocyte% 8.8 % (0-10); NRBC Flagged by Analyzer 0 % (0-5); Neutrophil # 4.33 X10^3/uL (2.7-7.7); Neutrophil % 64.6 % (47-70); Platelet Count 257 K/mm3 (150-450); RBC Distribution Width CV 13.8 % (11.6-14.6); RBC Distribution Width SD 44.6 fl (35.1-43.9); Red Blood Count 4.02 M/mm3 (4.2-5.4); White Blood Count 6.7 K/mm3 (4.4-11.0)
[2020-09-22 22:47] VITALS: BP 118/82; BP 96/54; BP 99/54; PULSE 62; PULSE 67; PULSE 72
--- NOTE | 2020-09-22 23:30 | ED.VIS.GEN ---
History of Present Illness Chief Complaint: Wound Check Detail of Chief Complaint: bleeding Informant: Patient Onset: Today - JPTA Context: Sudden Onset Timing: Continuous Quality: bleeding Location: left ankle Current Severity: - - resolved Maximum Severity: Severe Worsened by: nothing Relieved by: holding pressure Associated Symptoms: faint-feeling and vomited once Narrative: Patient takes a baby aspirin daily. She states that she took her socks off tonight, and had sudden onset of spontaneous bleeding from a spot on her left ankle. She bled for a little while before she noticed it because it did not hurt or feel like anything unusual. Subsequently, she became near syncopal and vomited once. She tried to put pressure on the wound and subsequently her called EMS, they put a pressure dressing on it and brought her to the hospital. Now she feels fine. - Past Medical History (1) Osteoporosis Status: Chronic (2) Atherosclerotic heart disease of [place] coronary artery without angina pectoris Status: Chronic Comment: S/P bypass surgery with BOONE sequential to diagonal to LAD in 2002; (3) Essential hypertension Status: Chronic (4) H/O two vessel coronary artery bypass graft Status: Chronic Comment: 06/16/03 CABG X 2, BONOE to Diagonal to LAD (5) Pure hypercholesterolemia Status: Chronic (6) History of right breast cancer Status: Resolved Comment: History of right breast lumpectomy Past Medical History - Allergies and Home Meds Allergies/Adverse Reactions: Allergies Ynwrysr-Jra-Nzs Reductase Inhibitor Adverse Reaction (Unknown, Verified 09/22/20 22:11) myalgia Primary Care Physician: Stephanie Aceves DO [Primary Care Provider] - Surgical History: coronary bypass surgery Smoking Status: Former smoker - Family History Sibling Family History: Family History (Last Reviewed 08/14/20 @ 11:26 by Karis Harkins) Father Myocardial infarction CAD (coronary artery disease) Mother Cancer Brother CAD (coronary artery disease) Family History: Reports: No pertinent history Review of Systems General: Reports: Malaise. Denies: Chills, Fever, Sweats Eyes: Denies: Visual changes - bilaterally, Diplopia ENT: Denies: Rhinorrhea, Sore throat Cardiovascular: Denies: Chest pain, Palpitations Respiratory: Denies: Dyspnea, Cough, Dyspnea on exertion Gastrointestinal: Denies: Abdominal pain, Nausea, Vomiting, Diarrhea, Melena, Hematochezia Genitourinary: Denies: Dysuria, Hematuria, Frequency Musculoskeletal: Denies: Back pain, Swelling, Extremity Pain Skin: Reports: Wounds. Denies: Rash Neurological: Denies: Headache, Weakness, Numbness Physical Exam Vital Signs/Narrative: Vital Signs Temp Pulse Pulse Pulse Pulse Resp BP 09/22/20 22:47 67 62 72 09/22/20 22:15 65 16 154/84 H 09/22/20 22:11 97.1 F L 18 BP BP BP Pulse Ox 09/22/20 22:47 118/82 H 99/54 L 96/54 L 09/22/20 22:15 98 09/22/20 22:11 Inital Vital Signs reviewed: Yes General: Well nourished, Well developed, No Acute Distress Head: Normocephalic, Atraumatic Eyes: Perrl, EOMI ENT: Moist mucous membranes, No rhinorrhea Neck: Supple, Nontender Cardiovascular: Regular rate, Regular rhythm, No murmurs. Negative for: Tachycardia Respiratory: No distress Extremities: Nontender, No edema Skin: Normal color, No rash, - - Single small superficial wound medial left ankle directly over a varicose vein without any active bleeding or signs of infection or foreign body. Neurological: Alert, Oriented x3, Cranial nerves II-XII grossly intact, Normal Strength, Normal Sensation Psychological: Normal affect, Normal Mood Diagnostic/Tx/Re-eval Laboratory Tests 09/22/20 Range/Units 22:04 WBC 6.7 (4.4-11.0) K/mm3 RBC 4.02 L (4.2-5.4) M/mm3 Hgb 11.8 L (12.0-15.0) g/dL Hct 35.8 L (37-47) % MCV 89.1 (81-99) fL MCH 29.4 (27.0-32.0) pg MCHC 33.0 (32-36) g/dL RDW Std Deviation 44.6 H (35.1-43.9) fl RDW Coeff of Jackson 13.8 (11.6-14.6) % Plt Count 257 (150-450) K/mm3 MPV 9.3 (6.2-12.0) fl Immature Gran % (Auto) 0.600 (0.0-0.9) % Neut % (Auto) 64.6 (47-70) % Lymph % (Auto) 21.3 (19-41) % [place] % (Auto) 8.8 (0-10) % Eos % (Auto) 4.3 (0-5) % Baso % (Auto) 0.4 (0-1) % Absolute Neuts (auto) 4.3 (2.0-7.7) X10^3/uL Absolute Lymphs (auto) 1.43 (0.83-4.51) X10^3/uL Nucleated RBC % 0 (0-5) % - Medical Decision Making The bleeding is resolved, and it did not recur while she was observed in the emergency department. We placed a regular dressing on it. Orthostatics are unremarkable, her hemoglobin is stable, it is 11.7 it was about a gram higher than that a couple months ago. She is stable for discharge home, given appropriate instructions for rebleeding and reasons to return. 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
== END 2020-09-22 23:50 | disposition home or self-care (01) ==
PROVIDERS: Emergency Provider Emergency Medicine; PCP Internal Medicine
DX: R55 Syncope and collapse (principal); I83.892 Varicose veins of left lower extremity with other complications; R11.10 Vomiting, unspecified; I25.10 Atherosclerotic heart disease of native coronary artery without angina pectoris; I10 Essential (primary) hypertension; E78.00 Pure hypercholesterolemia, unspecified; M81.0 Age-related osteoporosis without current pathological fracture; Z79.82 Long term (current) use of aspirin; Z79.899 Other long term (current) drug therapy; Z95.1 Presence of aortocoronary bypass graft; Z85.3 Personal history of malignant neoplasm of breast; Z87.891 Personal history of nicotine dependence
CPT/HCPCS: 85025; 99284; A4216

== ENCOUNTER → 2020-10-17 08:56 | Outpatient (CLI) | payer MEDICARE, OTHER, SELFPAY ==
[2020-09-22 22:11] VITALS: BMI 27.3
[2020-10-17 09:58] LABS: Absolute Neutrophil Count 2.8 X10^3/uL (2.0-7.7); Basophil# 0.03 X10^3/uL; Basophil% 0.6 % (0-1); Eosinophil# 0.23 X10^3/uL; Eosinophils% 4.9 % (0-5); Hematocrit 36.6 % (37-47); Hemoglobin 11.3 g/dL (12.0-15.0); Lymphocyte % 25.7 % (19-41); Mean Corp Hgb Conc 30.9 g/dL (32-36); Mean Corpuscular Hgb 27.9 pg (27.0-32.0); Mean Corpuscular Volume 90.4 fL (81-99); Mean Platelet Vol. 9.3 fl (6.2-12.0); Monocyte# 0.44 X10^3/uL; Monocyte% 9.4 % (0-10); NRBC Flagged by Analyzer 0 % (0-5); Neutrophil # 2.75 X10^3/uL (2.7-7.7); Platelet Count 245 K/mm3 (150-450); RBC Distribution Width CV 14.3 % (11.6-14.6); RBC Distribution Width SD 47.5 fl (35.1-43.9); Red Blood Count 4.05 M/mm3 (4.2-5.4); White Blood Count 4.7 K/mm3 (4.4-11.0)
[2020-10-17 10:17] LABS: Hemoglobin A1c 4.8 % (3.8-5.6)
[2020-10-17 10:33] LABS: AST(SGOT) 15 U/L (15-37); Alanine Aminotransfer ALT/SGPT 20 U/L (13-56); Albumin, Serum 3.8 g/dL (3.2-5.0); Alkaline Phosphatase 55 U/L (45-117); Anion Gap 6 (5-15); BUN 13 mg/dL (7-18); BUN/Creat Ratio 28.4 RATIO (10-20); Calcium,Total 9.3 mg/dL (8.5-10.1); Chloride 104 mmol/L (98-107); Cholesterol 170 mg/dL (200); Creatinine, Serum 0.46 mg/dL (0.55-1.02); EST Glomerular Filtration Rate 139 mL/min (>60); Est Glom Filt Rate - Afr Amer 169 mL/min (>60); Globulin 3.7 g/dL (2.2-4.2); Glucose 103 mg/dL (74-106); High Density Lipoprotein 71 mg/dL; Protein, Total 7.5 g/dL (6.4-8.2); Sodium Level 137 mmol/L (136-145); Thyroid Stim Hormone (TSH) 0.31 uIU/mL (0.358-3.74); Triglycerides 109 mg/dL; Very Low Density Lipoprotein 22 mg/dL (5-40)
[2020-10-19 08:52] LABS: Vitamin B12 653 pg/mL (211-911); Vitamin D,25 Hydroxy 45.5 ng/mL
== END ==
PROVIDERS: PCP Internal Medicine; Referring Provider Internal Medicine; Visit Provider Internal Medicine
DX: D51.0 Vitamin B12 deficiency anemia due to intrinsic factor deficiency (principal); E78.49 Other hyperlipidemia; R73.01 Impaired fasting glucose; E03.9 Hypothyroidism, unspecified; I10 Essential (primary) hypertension; E55.9 Vitamin D deficiency, unspecified
CPT/HCPCS: 36415; 80053; 80061; 82306; 82607; 83036; 84443; 85025

== ENCOUNTER → 2020-12-09 16:07 | Outpatient (CLI) | payer MEDICARE, OTHER, SELFPAY ==
--- NOTE | 2020-12-09 16:09 | RAD_ITS ---
STUDY: X-RAY - LUMBAR SPINE REASON FOR EXAM: Female, 80 years old. PAIN TECHNIQUE: 5 view(s) of the lumbar spine were obtained. COMPARISON: 01/30/2017 FINDINGS: Normal lumbar lordosis. Mild dextroscoliosis centered at L3. 2 mm retrolisthesis of L2 on L3. Normal vertebral bodies and endplates. Focal disc space narrowing and osteophyte formation at L2/L3 consistent with degenerative disc disease. Facet hypertrophy in the lower lumbar spine consistent with degenerative disc disease. The soft tissue structures are unremarkable. RAD/L/S Spine Min 4 Views IMPRESSION: Mild dextro scoliosis with degenerative disc disease as described above. Electronically Signed: Carlos Jurado MD at 10:00 EDT Tel , Service support ,
--- NOTE | 2020-12-09 16:09 | RAD_ITS ---
STUDY: X-RAY - PELVIS AND LEFT HIP REASON FOR EXAM: Female, 80 years old. PAIN TECHNIQUE: 3 views of the pelvis and hip. COMPARISON: 01/30/2017 FINDINGS: There is a non-specific bowel gas pattern. Normal visualized soft tissue structures. Normal bilateral iliac wings, sacroiliac joints and visualized sacrum. Normal bilateral superior and inferior pubic rami. Normal pubic symphysis. Normal bilateral ischial tuberosities. Healed fracture of the femoral neck after percutaneous fixation with 3 screws. Radiolucency of the articular surface of the femoral head suggestive of avascular necrosis. Normal acetabulum. Normal hip joint. 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 MRI may be useful. Electronically Signed: Carlos Jurado MD at 15:29 EDT Tel , Service support ,
== END ==
PROVIDERS: PCP Internal Medicine; Referring Provider Internal Medicine; Visit Provider Internal Medicine
DX: M54.9 Dorsalgia, unspecified (principal)
CPT/HCPCS: 72110; 73502

== ENCOUNTER → 2020-12-31 12:39 | Outpatient (CLI) | payer MEDICARE, OTHER, SELFPAY ==
--- NOTE | 2020-12-31 12:47 | MRI_ITS ---
STUDY: MRI LEFT HIP REASON FOR EXAM: Female, 80 years old. LEFT HIP AVN, ABN XRAY TECHNIQUE: Standardized fat and water weighted pulse sequences were obtained in all 3 orthogonal planes. COMPARISON: Pelvic x-ray dated DECEMBER 09, [address] of abdomen and pelvis dated September 29, 2017. FINDINGS: Several lack screws are present through the left intertrochanteric region and femoral neck. The hip joint spaces appear to be preserved bilaterally. No visualized fracture or active marrow edema. No aggressive process is present. No visualized sclerosis or serpiginous signal in the hip bony structures to suggest active avascular necrosis. Minimal cortical irregularity and spurring is present at the lateral aspect of the left femoral head. Mild subchondral cystic changes are also present in the lateral aspect of the left femoral head. It is possible that the appearance of the left femoral head is related to sequela from prior avascular necrosis with secondary degeneration. A small right hip joint effusion is present. Normal acetabulum. Normal labrum. Normal femoral head. Normal femoral neck and intratrochanteric region. Normal gluteus minimus, medius and iliopsoas tendons and distal insertions. There is no trochanteric, iliopsoas or iliopectineal bursitis. Normal superior and inferior pubic rami. Normal pubic symphysis. Normal ischial tuberosity. Normal origin of the hamstring tendons. Normal visualized iliac wing, sacroiliac joint, and sacral ala. Normal visualized soft tissue structures of the pelvis. MRI/Lower Ext Joint Only (Routine) IMPRESSION: 1. No visualized sclerosis or serpiginous signal in the hip bony structures to suggest active avascular necrosis. 2. Minimal cortical irregularity and spurring is present at the lateral aspect of the left femoral head. Mild subchondral cystic changes are also present in the lateral aspect of the left femoral head. 3. It is possible that the appearance of the left femoral head is related to sequela from prior avascular necrosis with secondary degeneration or osteoarthritis. 4. Small right hip joint effusion Electronically Signed: Lucio Robles MD at 21:55 EDT , Service support ,
== END ==
PROVIDERS: PCP Internal Medicine; Referring Provider Internal Medicine; Visit Provider Internal Medicine
DX: R93.7 Abnormal findings on diagnostic imaging of other parts of musculoskeletal system (principal); M87.9 Osteonecrosis, unspecified
CPT/HCPCS: 73721

== ENCOUNTER → 2021-01-19 12:51 | Outpatient (CLI) | payer MEDICARE, OTHER, SELFPAY ==
[2021-01-19 13:06] VITALS: BP 117/61; PULSE 54; RESP 16; TEMP 36.6; O2SAT 100; BMI 23.4
[2021-01-19] MEDS: DENOSUMAB 60 MG/ML SC (13:15)
== END ==
PROVIDERS: PCP Internal Medicine; Referring Provider Internal Medicine; Visit Provider Internal Medicine
DX: M81.0 Age-related osteoporosis without current pathological fracture (principal)
CPT/HCPCS: 96372; J0897

== ENCOUNTER → 2021-02-18 13:01 | Outpatient (CLI) | payer MEDICARE, OTHER, SELFPAY ==
[2021-01-19 13:06] VITALS: BMI 23.4
--- NOTE | 2021-02-18 13:04 | CDU_ITS ---
Reason For Study: carotid stenosis Rt. Velocities/BP Lt. Velocities/BP Prox CCA 76.0/13.4 cm/sec. Prox CCA 79.6/17.3 cm/sec. Mid CCA 69.5/14.7 cm/sec. Mid CCA 73.0/14.4 cm/sec. Dist CCA 63.0/13.4 cm/sec. Dist CCA 65.4/14.4 cm/sec. Prox ICA 60.4/14.7 cm/sec. Prox ICA 57.9/10.7 cm/sec. Mid ICA 77.3/22.6 cm/sec. Mid ICA 74.9/20.1 cm/sec. Dist ICA 126.6/33.4 cm/sec. Dist ICA 81.5/25.8 cm/sec. Rt. ICA/CCA = 1.8. Lt. ICA/CCA = 1.1. Prox ECA 78.6/6.9 cm/sec. Prox ECA 73.9/5.0 cm/sec. Rt. Vert. 50.4/10.7 cm/sec. Lt. Vert. 52.2/6.9 cm/sec. Right Extracranial There is intimal thickening but no significant atherosclerotic plaque noted in the right common carotid artery. There is heterogeneous, irregular atherosclerotic plaque noted in the right internal carotid artery. There is intimal thickening but no significant atherosclerotic plaque noted in the right external carotid artery. Antegrade flow is noted in the right vertebral artery. Left Extracranial There is intimal thickening but no significant atherosclerotic plaque noted in the left common carotid artery. There is heterogeneous, irregular atherosclerotic plaque noted in the left internal carotid artery. There is intimal thickening but no significant atherosclerotic plaque noted in the left external carotid artery. Antegrade flow is noted in the left vertebral artery. Procedure Carotid Duplex 37845. This is a Carotid Duplex examination using B-mode, color flow and specral Doppler. The exam was diagnostic. Exam performed in department. VL/Carotid Duplex Ultrasound Interpretation Summary Mild (<50%) stenosis right extracranial internal carotid. Mild (<50%) stenosis left extracranial internal carotid. Flow within the vertebral arteries is antegrade bilaterally. Ordering Physician: Stephanie Aceves Performed By: Sonido Estes RVT
== END ==
PROVIDERS: PCP Internal Medicine; Referring Provider Internal Medicine; Visit Provider Internal Medicine
DX: I65.23 Occlusion and stenosis of bilateral carotid arteries (principal); Z78.0 Asymptomatic menopausal state
CPT/HCPCS: 93880

== ENCOUNTER → 2021-03-03 09:56 | Outpatient (CLI) | payer MEDICARE, OTHER, SELFPAY ==
[2021-01-19 13:06] VITALS: BMI 23.4
--- NOTE | 2021-03-03 10:02 | BD_ITS ---
STUDY: DUAL ENERGY X-RAY ABSORPTIOMETRY / DXA REASON FOR EXAM: Female, 80 years old. Z78.0 patient is postmenopausal TECHNIQUE: Bone Mineral Density (BMD) measurements of lumbar spine and right hip were obtained. COMPARISON: Comparison is made with prior examination dated 05/15/2018. FINDINGS: Lumbar Spine (L1-L4): g/cm2 (0.991) / T-score (-0.5) / Z-score (2.2) Findings are suggestive of normal bone density with a low fracture risk. Left Femur Total: g/cm2 (0.768) / T-score (-1.4) / Z-score (0.7) Left Femoral Neck: g/cm2 (0.609) / T-score (-2.2) / Z-score (0.2) The T-Scores on the most recent prior examination were: Lumbar Spine (L1-L4): There has been worsening of bone density since the previous examination. Right Femur Total: which represents an improvement of 10.5%. BD/Dexa Bone Density Study IMPRESSION: The patient is considered osteopenic as outlined below according to World Mason Organization (WHO) criteria with a moderate fracture risk. There has been improvement of bone density since the previous examination. Reference Information: The T-score is the number of standard deviations above or below the standard which is normal for young adults at their peak bone mineral density. The World Health Organization (WHO) interprets the T-scores as follows: Above -1 Normal bone density Between -1 and -2.5 Osteopenia Equal to / or below -2.5 Osteoporosis As a practical clinical guideline, osteopenia may be graded as follows: Mild -1 through -1.5 Moderate -1.6 through -2.0 Severe -2.1 through -2.4 The Z-score is the number of standard deviations above or below age-matched controls. A Z-score of less than -1.5 would be considered abnormal. References: 1. NIH Osteoporosis and Related Bone Diseases www osteo.org 2. International Society for Clinical Densitometry www iscd.org 3. National Osteoporosis Foundation www nof.org Electronically Signed: Nirav Lane MD at 14:31 EDT , Service support ,
== END ==
PROVIDERS: PCP Internal Medicine; Referring Provider Internal Medicine; Visit Provider Internal Medicine
DX: Z78.0 Asymptomatic menopausal state (principal); I65.29 Occlusion and stenosis of unspecified carotid artery
CPT/HCPCS: 77080

== ENCOUNTER → 2021-03-12 | Outpatient (CLI) | payer MEDICARE, OTHER, SELFPAY ==
[2021-03-12 12:59] LABS: Anion Gap 5 (5-15); BUN 11 mg/dL (7-18); BUN/Creat Ratio 21.5 RATIO (10-20); Calcium,Total 9.2 mg/dL (8.5-10.1); Chloride 102 mmol/L (98-107); Creatinine, Serum 0.51 mg/dL (0.55-1.02); EST Glomerular Filtration Rate 123 mL/min (>60); Est Glom Filt Rate - Afr Amer 149 mL/min (>60); Free T3 2.1 pg/mL (2.18-3.98); Glucose 92 mg/dL (74-106); Potassium 4.3 mmol/L (3.5-5.1); Sodium Level 135 mmol/L (136-145); T4 Free Direct 1.18 ng/dL (0.76-1.46)
== END | disposition home or self-care (01) ==
LOC: LABSPEC 12:09
PROVIDERS: PCP Internal Medicine; Visit Provider Internal Medicine
DX: E03.9 Hypothyroidism, unspecified (principal); E87.5 Hyperkalemia
CPT/HCPCS: 80048; 84439; 84481

== ENCOUNTER 2021-03-17 12:00 | Outpatient (RCR) | payer MEDICARE, OTHER, SELFPAY ==
[2021-01-19 13:06] VITALS: BMI 23.4
[2021-02-11 11:27] VITALS: BMI 23.4
--- NOTE | 2021-02-16 12:22 | HP.PTEVAL ---
Patient's Visit Information RENO GONZALEZ is a 80 year old F referred to Physical Therapy by Dr. Stephanie Aceves DO with a diagnosis of Lumbar radiculopathy spinal stenosis. Date of Evaluation: 02/16/21 Physical Therapist: NAOMI Bangura - Visit Plan Frequency: 2x /Week Duration: 6 Weeks Plan: 2X/ week for 4 weeks for gentle hip strength (IR/ER also), core stability, LE strengthening, gait training, stair negotiation with HEP - Subjective Pt has back pain and upper legs and in her groin. This has been going on off and on for 6-9 months. She can hardly walk to the mailbox. Her R leg is worse. She can no walk 1.5 miles since COVID. They both had COVID. She has been under some stress. She had a vascular bleed and is still dealing with her Skin Dr. She has Psoriasis. Stairs: she tries to go alternating steps with a handrail. Sometimes that is much harder. Sit to stand: She is able to get up without use of her arms. She has had Tylenol and Tramadol already this morning so she can now move easier and she has been taking those meds since surgery. She is not doing any exercise right now. - Pain B groin pain Pain Intensity (Out of 10): 0 Pain Intensity Range: 6 Comment: with walking upper thigh pain Pain Intensity (Out of 10): 0 Pain Intensity Range: 6 Comment: with walking - Objective Gait: Walks with short stride with WBOS and walks more on her toes with decrease heel to toe gait pattern. Pt is able to walk on heels and toes but it hurts her leg when she walks on her heels and not easy to do. LE MMT: B hip flex 4-/5, B knee ext 4/5, B knee flex 4/5, R hip abd 4-/5 and L 4/5 Pt is able to do 3/4 normal ROM bridge,. Pt has good HS length. Pt can not cross her opposite ankle over opposite leg on with side in sitting. Pt had increase pain with hip IR PROM on the L. Pt had no pain with ER or IR on the R. Pt has increase discomfort when doing LTR and going to the L. Trunk AROM: flexion 75%, Ext 50%, SB B 75%, Rot B 50% - Balance/Special Test Scores Oswestry Low Back Score: 18 - Goals Goal 1:: I HEP Goal Time Frame: 4-6 Weeks Goal 2:: Decrease B hip and groin pain to 2/10 with walking Goal Time Frame: 4-6 Weeks Goal 3:: Increase LE strength by 1/2 muscle grade (LE MMT: B hip flex 4-/5, B knee ext 4/5, B knee flex 4/5, R hip abd 4-/5 and L 4/5 Pt is able to do 3/4 normal ROM bridge) Goal Time Frame: 4-6 Weeks Goal 4:: Be able to walk with increase stride with gait and smaller JESSICA Goal Time Frame: 4-6 Weeks - Rehabilitation Potential Rehabilitation Potential: Good - Anticipated Interventions Thank you for the opportunity to evaluate your patient. For Medicare and Medicare HMO plans, please review the plan of care and approve it. It will need to be FAXED BACK to us at [phone] for Medicare purposes. For Medicare only, by signing this I certify the plan of care. Please let me know if there are questions or concerns regarding this plan of care. Physician Signature: Date:
--- NOTE | 2021-03-17 14:01 | HP.PTDCSUM ---
It has been my pleasure to treat RENO GONZALEZ referred by Dr. Stephanie Aceves DO, with the diagnosis of Lumbar radiculopathy spinal stenosis for a total of 9 visit(s). Discharge Date: 03/17/21 Please see the following information for a summary of their discharge status. Subjective: Pt reports that her R groin and hip are bothering her today. It is more in standing and walking that it hurts. Sitting doesn't hurt so she finds herself sitting more. Her Dr will x-ray her hip now and see if we can get some answers. She feels that the exercises and moving in general help. Pt has no pain this morning but she is sitting and also taking pain meds. B groin pain Pain Intensity (Out of 10): 0 upper thigh pain Pain Intensity (Out of 10): 0 % Improvement: 10 Objective/Function: Increase LE strength by 1/2 muscle grade (LE MMT: B hip flex 4-/5, B knee ext 4/5, B knee flex 4/5, R hip abd 4-/5 and L 4/5 Pt is able to do normal ROM bridge). Gait: walks with WBOS and short strides Goal 1:: I HEP Goal Progress: Goal Met Goal 2:: Decrease B hip and groin pain to 2/10 with walking Goal Progress: Progressing Goal 3:: Increase LE strength by 1/2 muscle grade (LE MMT: B hip flex 4-/5, B knee ext 4/5, B knee flex 4/5, R hip abd 4-/5 and L 4/5 Pt is able to do 3/4 normal ROM bridge) Goal Progress: Progressing Goal 4:: Be able to walk with increase stride with gait and smaller JESSICA Goal Progress: Not Progressing Plan: DC PT back to physician for x-ray. Discharge Comments: DC PT to HEP and physician for further diagmostics If there are questions or concerns regarding this patient's physical therapy, please feel free to call me at [phone]. Thank you for the referral of this patient. Sincerely, Esha Workman, MPT Balance/Gait/Functional tests - Balance/Special Test Scores Oswestry Low Back Score: 16
== END 2021-03-17 19:00 | disposition home or self-care (01) ==
LOC: PT 12:00
PROVIDERS: PCP Internal Medicine; Referring Provider Internal Medicine; Visit Provider Internal Medicine
DX: M54.16 Radiculopathy, lumbar region (principal); M48.061 Spinal stenosis, lumbar region without neurogenic claudication
CPT/HCPCS: 97110; 97161; 97530

== ENCOUNTER → 2021-03-17 13:04 | Outpatient (CLI) | payer MEDICARE, OTHER, SELFPAY ==
--- NOTE | 2021-03-17 13:10 | RAD_ITS ---
STUDY: XR Hip Unilateral with Pelvis when performed; 2-3 Views 03/17/2021 12:58 PM REASON FOR EXAM: Female, 80 years old. PAIN TECHNIQUE: XR Hip Unilateral with Pelvis when performed; 2-3 Views COMPARISON: 12/09/2020 FINDINGS: There is a non-specific bowel gas pattern. Normal visualized soft tissue structures. There are degenerative changes of the lumbar spine. Metal yanelis along the medial left thigh. Normal bilateral iliac wings, sacroiliac joints and visualized sacrum. Normal visualized bilateral superior and inferior pubic rami. Normal pubic symphysis. Normal ischial tuberosities. There are osteoarthritic changes of the right femoral head with marginal osteophyte formation. There is cortical sclerosis with sub-cortical cyst formation of the right acetabulum. There is moderate articular joint space narrowing of the right hip. There are osteoarthritic changes of the left femoral head with marginal osteophyte formation. There is cortical sclerosis with sub-cortical cyst formation of the left acetabulum. There is moderate articular joint space narrowing of the left hip. There is metallic hardware noted in the left hip. RAD/HIP, UNI W/ Pelvis 2-3 Views IMPRESSION: Degenerative findings of the hips. No significant change. Electronically Signed: Dandre Negrete MD at 12:15 EDT , Service support ,
== END ==
PROVIDERS: PCP Internal Medicine; Referring Provider Internal Medicine; Visit Provider Internal Medicine
DX: M25.551 Pain in right hip (principal)
CPT/HCPCS: 73502

== ENCOUNTER 2021-07-13 10:49 | Outpatient (CLI) | payer MEDICARE, OTHER, SELFPAY ==
--- NOTE | 2021-07-13 10:52 | BI_ITS ---
MAMMOGRAPHY - BILATERAL SCREENING REASON FOR EXAM: Female, 81 years old. Routine annual screening examination. PERTINENT HISTORY: Personal history of breast cancer. Prior right lumpectomy with radiation therapy. TECHNIQUE: Digital bilateral breast jinny (3D mammographic acquisition) in the CC and MLO projections. 2-D mediolateral oblique (MLO) and craniocaudad (CC) views of both breasts were obtained. CAD: Full Field Digital Mammography with Computer Added Detection was performed. COMPARISON: Comparison is made with prior study dated 01/06/2021 and 07/08/2019. FINDINGS: Breast Composition: The breasts are heterogeneously dense, which may obscure small masses. There are no dominant masses or suspicious calcifications. Stable small benign-appearing bilateral axillary No other significant abnormalities are identified. There has been no significant change since the prior study. BI/SCRN MAMM (CAD)W/JINNY BILAT IMPRESSION: Stable bilateral screening mammogram. Yearly follow-up mammogram recommended. (A) ASSESSMENT CATEGORY: BIRADS Category 2: Benign. A letter regarding these results will be sent to the patient by the facility within 30 days. Approximately 10% of breast cancers are not detected by mammography. A normal mammogram should not delay biopsy of a clinically suspicious abnormality. [id number] Electronically Signed: Nirav Lane MD at 11:49 EST , Service support ,
== END 2021-07-13 23:59 | disposition short-term general hospital (02) ==
LOC: OPBI 10:49
PROVIDERS: PCP Internal Medicine; Referring Provider Nurse Practitioner; Visit Provider Nurse Practitioner
DX: Z12.31 Encounter for screening mammogram for malignant neoplasm of breast (principal); Z85.3 Personal history of malignant neoplasm of breast
CPT/HCPCS: 77063; 77067

== ENCOUNTER 2021-07-19 13:08 | Outpatient (CLI) | payer MEDICARE, OTHER, SELFPAY ==
[2021-07-19 13:45] VITALS: BP 140/70; PULSE 58; RESP 16; TEMP 36.2; O2SAT 100; BMI 23.6
[2021-07-19] MEDS: DENOSUMAB 60 MG/ML SC (13:50)
== END 2021-07-19 23:59 | disposition short-term general hospital (02) ==
LOC: MEDOUTP 13:09
PROVIDERS: PCP Internal Medicine; Referring Provider Internal Medicine; Visit Provider Internal Medicine
DX: M81.0 Age-related osteoporosis without current pathological fracture (principal)
CPT/HCPCS: 96372; J0897

== ENCOUNTER 2021-12-06 07:20 | Day surgery (SDC) | payer MEDICARE, OTHER, SELFPAY ==
--- NOTE | 2021-11-25 12:56 | RAD_ITS ---
STUDY: X-RAY CHEST REASON FOR EXAM: Female, 81 years old. PREOP/HX OF RADIATION TO CHEST TECHNIQUE: XR Chest 2 Views COMPARISON: 05.18.21 FINDINGS: There is no demonstrated pleural abnormality. There are multiple median sternotomy wires. Elevated right humeral head with eburnation of the acromion suggest a chronic rotator cuff tear. Normal size heart. Normal mediastinum and tiana. Normal visualized pulmonary arteries. There is atherosclerotic calcification of the aortic arch with tortuosity. Normal visualized thoracic spine. There is degenerative osteoarthritis of the bilateral shoulders. There is no demonstrated abnormality of the visualized soft tissue structures of the upper abdomen. RAD/Chest PA and Lateral IMPRESSION: There are no acute findings. Electronically Signed: Dandre Negrete MD at 14:20 EDT ,
[2021-11-25 13:08] LABS: Hematocrit 35.8 % (37-47); Hemoglobin 11.9 g/dL (12.0-15.0); Mean Corp Hgb Conc 33.2 g/dL (32-36); Mean Corpuscular Hgb 29.1 pg (27.0-32.0); Mean Corpuscular Volume 87.5 fL (81-99); Mean Platelet Vol. 9.5 fl (6.2-12.0); Platelet Count 258 K/mm3 (150-450); RBC Distribution Width SD 44.9 fl (35.1-43.9); Red Blood Count 4.09 M/mm3 (4.2-5.4); White Blood Count 5.3 K/mm3 (4.4-11.0)
[2021-11-25 13:30] LABS: Hemoglobin A1c 5.1 % (3.8-5.6)
[2021-11-25 13:36] LABS: Albumin, Serum 3.7 g/dL (3.2-5.0); Anion Gap 8 (5-15); BUN 15 mg/dL (7-18); BUN/Creat Ratio 27.4 RATIO (10-20); Calcium,Total 9.1 mg/dL (8.5-10.1); Chloride 101 mmol/L (98-107); Creatinine, Serum 0.55 mg/dL (0.55-1.02); EST Glomerular Filtration Rate 113 mL/min (>60); Est Glom Filt Rate - Afr Amer 137 mL/min (>60); Glucose 100 mg/dL (74-106); Sodium Level 135 mmol/L (136-145)
[2021-11-25 13:54] LABS: Magnesium 2.1 mg/dL (1.6-2.6); Thyroid Stim Hormone (TSH) 1.67 uIU/mL (0.358-3.74)
[2021-12-06] VITALS (11 sets, daily range): BP systolic 73–124; BP diastolic 46–68; PULSE 57–68; RESP 16; TEMP 36.2–37.6; O2SAT 95–100; BMI 25.1
[2021-12-06] MEDS: Gabapentin 600 MG Tablet PO (07:51)
[2021-12-06] MEDS: Acetaminophen 500 MG Tablet 1000 MG PO (07:51)
[2021-12-06] MEDS: Lactated Ringers 1,000 ML 15 ML IV (07:52)
[2021-12-06 09:05] LABS: Bedside Glucose 149 mg/dL (74-106)
--- NOTE | 2021-12-06 10:00 | FEM_PTH ---
PATIENT: RENO GONZALEZ [place] [facility] [place][id number] AGE/SX: 81/F ROOM: RE12/06/[address]: Dr. Olu Chapa DO : 1940 BED: DIS: 12/06/2021 SPEC #: [id number] RECD: 12/06/21 13:24 STATUS: JOHN REQ #: [id number] LUPE: 12/06/21 10:[address]: Olu Chapa DEPT: SURGICAL PATHOLOGY RECD BY: Sia Sood ENTERED: 12/06/21 13:45 SP TYPE: FEM HEAD OTHR DR: DO Dr. Colby Meza MD Tissues: Femoral region, NOS Procedures: Decalcification bone/plaque Surgery Specimen Level IV HEADER OPERATION: ERAS, total hip replacement PRE-OP DIAGNOSIS: Osteoarthritis right hip TISSUE SUBMITTED: Right femoral head MICROSCOPIC DIAGNOSIS Right femoral head, total hip replacement/resection: Femoral head with degenerative osteoarthritic changes. Fragments of cartilaginous tissue and reactive synovial tissue. ALINA:jaja 12/09/2021 MICROSCOPIC DESCRIPTION Slides are reviewed. GROSS DESCRIPTION Received is one container labeled with the patient's name and designated right femoral head. The specimen consists of a baig femoral head with portion of femoral neck. The femoral head measures 4.5 x 4.5 x 4.5 cm and the femoral neck measures up to 1 cm in length. The articular surface displays prominent osteophyte formation and bone erosion. Also present in the specimen container are multiple irregular fragments of bone reamings and pink-yellow soft tissue measuring in aggregate 6 x 5 x 1.5 cm. Laboratory Apparatus Glass Blower sections are submitted in two cassettes as follows: 1 - bone reamings and soft tissue, 2??femoral head after decalcification. / ALINA:jaja 12/06/2021 TC:5 CPT: 86527, 16368
[2021-12-06] MEDS: Cefazolin 2 GM in 0.9% Normal Saline 100 ML IV (10:16)
[2021-12-06] MEDS: TXA 1000mg in NS100 100ml (IVPB at Incision) 660 MG IV (10:32)
[2021-12-06] MEDS: TXA 1000mg in NS100 100ml (IVPB at Closure) 660 MG IV (11:21)
--- NOTE | 2021-12-06 11:44 | OP.PCM_ITS ---
Report of Operation Date of Procedure: 12/06/21 Pre-Operative Diagnosis: OA right hip Post-Operative Diagnosis: same Surgery/Procedure Performed:: Right THR Description of Surgical Findings:: Report of Operation Date of Procedure: 12/06/21 Pre-Operative Diagnosis: OA [right ] hip Post-Operative Diagnosis: same Surgery/Procedure Performed:rightTHR medical accounts receivable specialist: Jude Robertson PA-C Type of Anesthesia: spinal Anesthesiologist: Chuck Esquivel M.D. Specimen's removed: bone Estimated Blood Loss (100 mL): Implants: Aimee Accolade 2 size 4 stem, 48 mm Tritanium cup, MDM liner, 127 degree, +0 femoral head Surgical Indications: Patient has severe end-stage osteoarthritic changes in the [ right ] hip. They have failed conservative measures including activity modification, anti- inflammatories, use of assistive devices. This to the point where the pain affects their ability to enjoy life and complete activities of daily living without discomfort. Patient has elected to undergo the above procedure Procedure Description: The patient was greeted in the preoperative area the [ right ] hip was marked with surgical marker preoperative antibiotics administered. The patient was then taken to or suite in stable condition. Preoperative tranexamic acid was also utilized. Once the patient was placed in the supine position on the operating room table and once adequate anesthesia was obtained they were then placed in the lateral decubitus position with the surgical hip facing the field. All bony prominences were well-padded. A commercial hip position was utilized. The appropriate extremity was then prepped and draped in usual sterile fashion. Ioban was placed on the skin. Surgical timeout was performed and surgery was commenced. A standard posterior approach to the hip was then performed. Incision was planned and carried out with a #10 blade scalpel. Dissection was then carried length of the incision to the IT band which was split proximally and distally. A Charnley retractor was then placed for soft tissue retraction exposing the piriformis. A standard posterior capsulotomy was performed. Severe eburnation of bone was noted and periarticular osteophytes were identified consistent with severe end-stage osteoarthritis. A femoral neck osteotomy guide was used to isi the proximal femur. A femoral osteotomy was then created approximately 1 fingerbreadth above the lesser trochanter. This was measured and placed on the back table. Once this was complete acetabular retractors were placed anteriorly and posteriorly. Labrum was then removed from the acetabulum exposing the entire cup of the acetabulum. Sequential reaming was then commenced and the acetabulum was medialized and sequentially widened in order to accommodate appropriate size cup. The acetabular cup was then impacted into position to the appropriate depth referencing approximately [45 degrees ] anteversion and [45 degrees ]of inclination. Excellent purchase was obtained. An appropriate size MDM liner was then placed. Attention was then turned to the femoral preparation. The hip was placed in the 90/90 position and a lateralizing box osteotome was utilized. Femoral starting awl was used followed by sequential broaching to the appropriate size. Excellent purchase was obtained with the stem no stem subsidence and excellent rotational stability was confirmed. A calcar reamer was then used in the trial head neck was placed on the broach. The hip was then located and taken through full range of motion flexion internal and external rotation as well as extension. Excellent stability was noted no impingement was identified of the components and leg lengths appear to be appropriate. The hip was at this point dislocated and the trial femoral components were removed. The final femoral stem was then implanted and impacted to the appropriate depth. Again excellent purchase was obtained no stem subsidence or rotational instability was noted. The hip was once again trialed and confirmation of leg length and stability was performed. Soft tissue tension also appeared to be appropriate. At this point the hip was redislocated and the trunnion was cleaned and dried meticulously in the appropriate size MDM femoral head was placed on the clean dry trunnion using a 12/14 Gusman taper. The hip was once again relocated and again taken through full range of motion. I did inject a cocktail of postoperative pain medication in the deep and superficial tissues. Copious irrigation was performed. Anatomic closure of the piriformis tendon was performed through drill holes in the greater trochanter. A #1 Vicryl 0 Vicryl was utilized in subcutaneous tissue and surgical yanelis were placed in the skin. A well-padded nonadherent dressing was applied. Patient was taken to PACU in stable condition. No complications were identified. Will follow standard postop protocol for total hip arthroplasty. My assistant operations manager played a vital role in the procedure beginning with positioning, holding retraction of soft tissues, positioning the leg to optimize visualization during the procedure and assisting with wound closure. Post-op Plan: DVT ppx; ASA 81 mg BID, thigh high compression stockings Follow up: in office in 2 weeks for wound check PT: to start POD #0 at hospital, outpatient PT should be arranged. Preoperative antibiotic: Anceg 2 grams IV Olu Chapa DO Surgeon: Olu Chapa medical accounts receivable specialist: Jude Robertson Type of Anesthesia: Spinal Anesthesiologist: Chuck Esquivel Estimated Blood Loss (mL): 100 cc Fluids Replaced: 1000 cc crystalloid Admit VTE Documentation VTE Present on Admission: No VTE Mechan Device Prophylaxis: SCD's and Thigh High EDITA Hose VTE Pharm Prophylaxis ordered?: Yes
--- NOTE | 2021-12-06 12:03 | RAD_ITS ---
STUDY: X-RAY - PELVIS AND RIGHT HIP REASON FOR EXAM: Female, 81 years old. Postoperative evaluation after right total hip arthroplasty. TECHNIQUE: 2 views of the pelvis and hip. COMPARISON: 03/17/2021. FINDINGS: There is a non-specific bowel gas pattern. Soft tissue swelling and soft tissue gas over the right proximal femur. Osteopenia. Mild arthrosis of both sacroiliac joints and the symphysis pubis, unchanged. Celeste'' pins in the left proximal femur are unchanged. New right total hip arthroplasty in anatomic alignment without complications. RAD/Hip Min 2 Views (Portable) IMPRESSION: Osteopenia with new right total hip arthroplasty without complications. Electronically Signed: Jude Edge MD at 13:16 EDT ,
[2021-12-06] MEDS: Lactated Ringers 1,000 ML 125 ML IV (12:44)
[2021-12-06] MEDS: oxyCODONE 5 MG Tablet PO (14:25)
--- NOTE | 2021-12-06 14:42 | SUR.PHASEII ---
THIS NURSE CALLED [facility] TO CLARIFY PEPCID ADMINISTRATION AT HOME POST-OP SINCE PATIENT STATES THAT THEY DID NOT GET THE PEPCID AT THE PHARMACY. SURGERY COORDINATOR SENT THE SCRIPT TO [facility]. THIS NURSE INFORMED FAMILY.
== END 2021-12-06 18:12 | disposition home or self-care (01) ==
LOC: SDC 07:20 → AC 07:21
PROVIDERS: Anesthesiology; PCP Internal Medicine; Referring Provider Orthopaedic Surgery; Visit Provider Orthopaedic Surgery
PROC: 0SR90JZ Replacement of Right Hip Joint with Synthetic Substitute, Open Approach (ICD-10-PCS; CPT 27130; principal; 2021-12-06 09:35)
DX: M16.11 Unilateral primary osteoarthritis, right hip (principal); I25.10 Atherosclerotic heart disease of native coronary artery without angina pectoris; I10 Essential (primary) hypertension; E78.00 Pure hypercholesterolemia, unspecified; Z95.1 Presence of aortocoronary bypass graft; Z79.82 Long term (current) use of aspirin; Z79.890 Hormone replacement therapy; Z79.899 Other long term (current) drug therapy
CPT/HCPCS: 27130; 01214; 36415; 71046; 73502; 80048; 82040; 82962; 83036; 83735; 84443; 85027; 87081; 88305; 88307; 88311; 97162; C1776; J7120; J2405; J3475

== ENCOUNTER 2021-12-07 15:08 | Emergency (ER) | payer MEDICARE, OTHER, SELFPAY ==
[2021-12-07 15:09] VITALS: BP 107/43; PULSE 90; RESP 18; TEMP 37.1; O2SAT 99; BMI 24.5
[2021-12-07 15:11] VITALS: BP 107/43; PULSE 90; RESP 18; TEMP 37.1; O2SAT 99
--- NOTE | 2021-12-07 15:52 | RAD_ITS ---
STUDY: X-RAY - PELVIS AND RIGHT HIP REASON FOR EXAM: Female, 81 years old. post op hip pain. s/p prosthetic hip TECHNIQUE: 3 views of the pelvis and hip. COMPARISON: 12/06/2021. FINDINGS: Right hip prosthesis has been placed in anatomic alignment and position.. Surgical yanelis are seen in the soft tissues at the operative site. RAD/HIP, UNI W/ Pelvis 2-3 Views IMPRESSION: Status post right hip prosthesis placement. Electronically Signed: Chevy Mccarthy MD at 17:26 EDT ,
--- NOTE | 2021-12-07 15:55 | EDS_ITS ---
HPI History of Present Illness Chief Complaint: Other, Pain/Inj Detail of Chief Complaint: Right hip pain post hip replacement Informant: patient and spouse/S.O. Onset/Context/Timing Onset: Today and Yesterday Current Severity: Moderate Maximum Severity: Moderate Narrative Narrative: 81-year-old female history of CAD, CABG, hypertension, breast cancer. Yesterday underwent right hip prosthesis surgery done by Dr. Gurmeet Guzman. Patient was discharged home the same day and she has had worsening right hip pain. Denies any fall or trauma. She has been up ambulating. Said she had a temperature of 100.7 with some chills. Denies any cough, shortness of breath. Denies any abdominal pain. Denies any dysuria. Denies any redness of the hip. Prior similar symptoms: No Recent Illness/Hospitalization: Yes PFSH PFSH Medical History Alcohol use Atherosclerotic heart disease of [place] coronary artery without angina pectoris Back pain Bladder disease Cancer Cardiology follow-up encounter Coronary artery disease Difficulty swallowing Dyspnea Essential hypertension Fatigue Former smoker High cholesterol Hip fracture Hip replacement planned History of colitis History of echocardiogram History of pain when walking History of right breast cancer History of stress test Hx of psoriatic arthritis Hyperlipidemia Hypertension Hypotension Influenza B Leg cramps Low iron Nodule of left lung Nonspecific abnormal unspecified cardiovascular function study Osteoporosis Other halfway (current) drug therapy Palpitations Precordial chest pain Preoperative cardiovascular examination Pure hypercholesterolemia Syncope and collapse Thyroid disease Wears glasses Wears partial dentures Home Medications carvedilol 12.5 mg PO BID 04/15/13 [History Last Taken 12/06/21] cyanocobalamin (vitamin B-12) 1,000 mcg IM Q30D 04/15/13 [History Last Taken 09/04/17] calcium citrate 200 mg calcium-vitamin D3 6.25 mcg (250 unit) tablet 1 tab PO DAILY tab 09/03/18 [History Last Taken Unknown] apremilast 30 mg tablet 30 mg PO BID 12/23/19 [History Last Taken 12/06/21] denosumab 60 mg/mL subcutaneous syringe 60 mg SC [id number] ml 12/23/19 [History Last Taken Unknown] nitroglycerin 0.4 mg sublingual tablet 0.4 mg SUBLINGUAL Q5M PRN #25 tab 07/10/20 [Rx Last Taken Unknown] coenzyme Q10 100 mg PO DAILY 09/22/20 [History Last Taken Unknown] cholecalciferol (vitamin D3) 50 mcg (2,000 unit) capsule 8,000 unit PO .COMPLEX cap 10/18/21 [History Last Taken Unknown] levothyroxine 112 mcg tablet 112 mcg PO MOTUWETHFRSA tab 10/18/21 [History Last Taken 12/06/21] rosuvastatin 5 mg tablet 5 mg PO SUTUTHSA 10/18/21 [History Last Taken Unknown] tramadol 50 mg tablet 50 mg PO DAILY tab 10/18/21 [History Last Taken Unknown] acetaminophen [Tylenol Ex Str Arthritis Pain] 500 mg PO 4X/DAY 11/23/21 [History Last Taken Unknown] aspirin 81 mg PO QHS 11/23/21 [History Last Taken 12/01/21] Allergy/AdvReac Type Severity Reaction Status Date / Time Xnnolez-AVG-VyW Reductase AdvReac Unknown myalgia Verified 12/07/21 15:12 Inhibitor [Lefqhuf-Rdi-Iml Reductase Inhibitor] perflutren [From Definity] AdvReac BACK PAIN Verified 12/07/21 15:12 Family History Father Myocardial infarction CAD (coronary artery disease) Mother Cancer bladder cancer Brother CAD (coronary artery disease) Hx cardiac stent Surgical History H/O tooth extraction H/O two vessel coronary artery bypass graft (~06/16/03) History of bilateral cataract extraction History of carpal tunnel surgery History of hemorrhoidectomy History of hysterectomy hx rectal fissure repair Social History Smoking Status: Former smoker alcohol intake: current Alcohol type: wine substance use type: does not use caffeine: Yes Type: coffee Number of servings: 2 what type of physical activity do you participate in: none do you feel safe at home: Yes ROS ROS ED ROS Narrative Low-grade temperature 100.7. Review of Systems ROS Unobtainable: Denies due to encephalopathy Constitutional Constitutional ED: Reports chills and fever(s) Eyes Eyes: Denies change in vision ENT ENT ED: Denies ear pain, rhinorrhea or sore throat Cardiovascular Cardiovascular: Denies chest pain or palpitations Respiratory/Chest Respiratory/Chest: Denies cough, dyspnea or sputum Gastrointestinal Gastrointestinal: Denies abdominal pain, diarrhea, nausea or vomiting Genitourinary Genitourinary ED: Denies dysuria, hematuria or urinary frequency Musculoskeletal Musculoskeletal: Denies myalgias Integumentary Denies rash Neurologic Neurologic: Denies headache(s) Psychiatric Psychiatric: Denies depression Endocrine Endocrinology: Denies polyuria Allergic/Immunologic Allergic/Immunologic ED: Denies urticaria EXAM Physical Exam Narrative Exam Narrative: 81-year-old no acute distress. at bedside. Vital signs stable afebrile. Temperature 98.8. Pulse ox 91% on room air no hypoxia. She is in no distress. H EENT exam unremarkable. Moist membranes. Posterior pharynx unremarkable. Neck nontender no lymphadenopathy. Lungs clear to auscultation bilaterally. Heart regular rhythm no murmur. Rate about 90. Abdomen soft nontender normal bowel sounds no peritoneal signs. Moving all 4 extremities. Calves are nontender without edema or cords. Right hip has a la teral right hip incision. Incision is dry and clean. There is no cellulitis. No redness. No pus or discharge. Dorcas are in position. Dressing intact. This does not appear to be infected. Its not red. There is normal postop bruising. Back nontender. Neurologically she is awake and alert. Const Vital Signs: 12/07/21 15:09 12/07/21 15:11 Temperature 98.8 F 98.8 F Temperature Source Oral Oral Pulse Rate 90 90 Respiratory Rate 18 18 Blood Pressure 107/43 L 107/43 L Blood Pressure Mean 64 64 Pulse Ox 99 99 Oxygen Delivery Method Room Air Room Air Positive well nourished and well developed; Negative for obese, cachectic, contractures or unkempt General Appearance ED: well developed and NAD; Negative for unkempt, cachectic, contractures, cyanotic, diaphoretic or pallor Nutritional Appearance: Negative for cachectic or obese HEENT Reports moist mucous membranes Negative for trauma Eyes PERRL and EOMs intact bilaterally General Eye ED: Negative for pale conjunctiva or scleral icterus Neck no lymphadenopathy, supple and no JVD General: Negative for tenderness Chest Wall inspection of chest normal and palpation of chest normal Resp normal respiratory effort and clear to auscultation bilaterally Effort and Inspection: Negative for pain with movement Auscultation: Negative for rales or rhonchi Cardio regular rate, regular rhythm, S1 normal heart sound, S2 normal heart sound and no murmurs GI normal to inspection, nondistended, normoactive bowel sounds, non-tender, non- distended and no masses Inspection: Negative for abdominal distention Auscultation: normoactive bowel sounds Palpation: soft; Negative for tender, guarding or rebound tenderness present Back/Spine no CVA tenderness General Back: Negative for CVA tenderness Cervical Spine: Negative for cervical spine tenderness Thoracic Spine / Upper Back: Negative for thoracic spinal tenderness or paraspinal muscle tenderness Lumbar Spine / Lower Back: Negative for lumbar spinal tenderness Extremity normal to inspection Extremity Narrative: Normal postop right hip replacement incision. Dry and clean. No discharge. No redness. No pus. Clinically does not look infected. Incisions dry and clean. General Extremety ED: Yes tenderness Neuro oriented x3 Sensorium / Orientation: alert; Negative for orientation impaired, lethargic or stuporous Motor Exam: strength 5/5 throughout Psych mental status grossly normal Appearance: Negative for unkempt Attitude: No agitated Mood & Affect: Negative for depressed or tearful Skin no rashes or lesions noted, no wounds and skin turgor normal General Skin Exam: Negative for jaundice or pallor MDM MDM MDM Narrative Medical decision making narrative: 81-year-old status post right hip replacement yesterday. Complaining of increasing right hip pain and low-grade temperature of 100.7. Here she is afebrile. Clinically the site is dry and clean and looks well. Does not look infected. Screening labs and x-rays are being obtained. She will be given morphine for pain and Zofran. Repeat exam patient is doing well at 6:55 PM. I went over test results with her and her . She is comfortable and wants to be discharged home. She starts physical therapy tomorrow. She has home pain medication. She will be given a second dose of morphine IV prior to discharge. I did discuss her ER visit with the orthopedic physician on-call for Dr. Olu Chapa that is Dr. Ruiz. Lab Data Attestation: I reviewed the patient's lab results. Lab results narrative: CBC White count 6.6. H&H 9.6 and 25. Platelets of 222. Electrolytes show sodium 134 gap of 5 normal BUN and creatinine. Glucose 128. Chest x-ray negative. No acute process. Urinalysis negative. Labs: Laboratory Results - last 24 hr 12/07/21 12/07/21 12/07/21 16:04 16:04 16:20 WBC 6.6 RBC 3.28 L Hgb 9.6 L Hct 28.5 L MCV 86.9 MCH 29.3 MCHC 33.7 RDW Std Deviation 44.9 H RDW Coeff of [place] 14.2 Plt Count 222 MPV 9.6 Immature Gran % (Auto) 0.900 Neut % (Auto) 73.6 H Lymph % (Auto) 13.4 L [place] % (Auto) 9.5 Eos % (Auto) 2.1 Baso % (Auto) 0.5 Absolute Neuts (auto) 4.8 Absolute Lymphs (auto) 0.88 Nucleated RBC % 0 Sodium 134 L Potassium 3.9 Chloride 104 Carbon Dioxide 25.0 Anion Gap 5 BUN 10 Creatinine 0.60 Estim Creat Clear Calc 33.29 Est GFR (MDRD) Af Amer 124 Est GFR (MDRD) Non-Af 102 BUN/Creatinine Ratio 16.7 Glucose 128 H Calcium 8.2 L Urine Color Yellow Urine Clarity Clear Urine pH 6.0 Ur Specific [place] 1.015 Urine Protein Negative Urine Glucose (UA) Normal Urine Ketones Negative Urine Occult Blood Negative Urine Nitrite Negative Urine Bilirubin Negative Urine Urobilinogen Normal Ur Leukocyte Esterase 25 H Urine RBC 0 SEEN Urine WBC 0-5 SEEN Ur Squamous Epith Cells 0-5 SEEN Urine Bacteria RARE Urine Mucus 0 SEEN Radiography Chest X-Ray - ED: 1 View, Read by ED Physician, Heart, Lungs, Mediastinum, Bony Structures, No Acute Disease and Chronic Changes Diagnostic Testing: Clinical Impression(s) from Imaging Studies Hip/Pelvis X-Ray 12/07/21 15:52 IMPRESSION: Status post right hip prosthesis placement. Electronically Signed: Chevy Mccarthy MD at 17:26 EDT , Chest X-Ray 12/07/21 16:32 IMPRESSION: No acute cardiopulmonary pathology Electronically Signed: Chevy Mccarthy MD at 17:27 EDT , Chest x-ray, portable, single view interpreted by myself shows no acute abnormality. No infiltrate. No atelectasis. Right hip x-ray 2 views interpreted by myself and radiologist shows no acute abnormality. No dislocation. No fracture. Discharge Plan Triage Chief Complaint: Other, Pain/Inj ED Provider: Cade Zacarias Dx/Rx/DC Orders Clinical Impression: Post-operative pain, History of right hip replacement Instructions: ED Post Op Wound Check, Pain Prescriptions: No Action Otezla 30 mg tablet 30 mg PO BID RF: 0 tramadol 50 mg tablet 50 mg PO DAILY RF: 0 rosuvastatin [Crestor] 5 mg tablet 5 mg PO SUTUTHSA RF: 0 carvedilol 12.5 MG tablet 12.5 mg PO BID RF: 0 cyanocobalamin (vitamin B-12) 1,000 MCG/ML solution 1,000 mcg IM Q30D RF: 0 levothyroxine 112 mcg tablet 112 mcg PO MOTUWETHFRSA RF: 0 calcium citrate-vitamin D3 200 mg calcium -250 unit tablet 1 tab PO DAILY RF: 0 denosumab 60 mg/mL syringe 60 mg SC [id number] RF: 0 coenzyme Q10 100 MG capsule 100 mg PO DAILY RF: 0 cholecalciferol (vitamin D3) 50 mcg (2,000 unit) capsule 8,000 unit PO .COMPLEX RF: 0 acetaminophen [Tylenol Ex Str Arthritis Pain] 500 mg Tablet 500 mg PO 4X/DAY RF: 0 aspirin 81 MG tablet,chewable 81 mg PO QHS RF: 0 nitroglycerin 0.4 mg tablet, sublingual 0.4 mg sublingual Q5M PRN (Reason: Chest Pain) Qty: 25 RF: 3 Primary Care Provider: Stephanie Aceves Referrals: Stephanie Aceves DO [Primary Care Provider] - Olu Chapa DO [STAFF PHYSICIAN] - 1 Day Activity Restrictions/Additional Instructions: Ice to the hip. Use your pain medications at home as prescribed. Follow-up with your physical therapy tomorrow. Your test results and x-rays tonight are all good. Disposition Disposition: Home, Self Care
[2021-12-07] MEDS: Ondansetron 4 MG/2 ML Vial IV (16:07)
[2021-12-07] MEDS: morphine 8 MG/ML Syringe 6 MG IV ×2 (16:07→19:08)
[2021-12-07 16:17] LABS: Absolute Lymphocyte Count 0.88 X10^3/uL (0.83-4.51); Absolute Neutrophil Count 4.8 X10^3/uL (2.0-7.7); Basophil# 0.03 X10^3/uL; Basophil% 0.5 % (0-1); Eosinophil# 0.14 X10^3/uL; Eosinophils% 2.1 % (0-5); Hematocrit 28.5 % (37-47); Hemoglobin 9.6 g/dL (12.0-15.0); Lymphocyte # 0.88 X10^3/ul (0.83-4.51); Lymphocyte % 13.4 % (19-41); Mean Corp Hgb Conc 33.7 g/dL (32-36); Mean Corpuscular Hgb 29.3 pg (27.0-32.0); Mean Corpuscular Volume 86.9 fL (81-99); Mean Platelet Vol. 9.6 fl (6.2-12.0); Monocyte# 0.62 X10^3/uL; Monocyte% 9.5 % (0-10); NRBC Flagged by Analyzer 0 % (0-5); Neutrophil # 4.82 X10^3/uL (2.7-7.7); Neutrophil % 73.6 % (47-70); Platelet Count 222 K/mm3 (150-450); RBC Distribution Width CV 14.2 % (11.6-14.6); RBC Distribution Width SD 44.9 fl (35.1-43.9); Red Blood Count 3.28 M/mm3 (4.2-5.4); White Blood Count 6.6 K/mm3 (4.4-11.0)
[2021-12-07 16:25] LABS: Anion Gap 5 (5-15); BUN 10 mg/dL (7-18); BUN/Creat Ratio 16.7 RATIO (10-20); Calcium,Total 8.2 mg/dL (8.5-10.1); Chloride 104 mmol/L (98-107); EST Glomerular Filtration Rate 102 mL/min (>60); Est Glom Filt Rate - Afr Amer 124 mL/min (>60); Estimated Creatinine Clearance 33.29 ml/min; Glucose 128 mg/dL (74-106); Potassium 3.9 mmol/L (3.5-5.1); Sodium Level 134 mmol/L (136-145)
[2021-12-07 16:28] LABS: Mucous, Urine 0 SEEN /hpf (<or=2+); Red Blood Cells-Urine 0 SEEN /hpf (0-5)
[2021-12-07 16:32] LABS: Color, Urine Yellow (Yellow); Glucose, Dipstick Normal (Normal); Ketone-Dipstick Negative (Negative); Leukocyte Esterase-Dipstick 25 /ul (Negative); Nitrite-Dipstick Negative (Negative); Occult Blood-Urine Negative /ul (Negative); Protein-Dipstick Negative (Negative); Specific Gravity, Urine 1.015 (1.002-1.030); Urine Bilirubin Dipstick Negative (Negative); Urine Clarity Clear (Clear); Urine Urobilinogen Normal (Normal)
--- NOTE | 2021-12-07 16:32 | RAD_ITS ---
STUDY: X-RAY CHEST REASON FOR EXAM: Female, 81 years old. post op fever TECHNIQUE: AP portable COMPARISON: None. FINDINGS: The lungs are clear and expanded. There is no demonstrated pleural abnormality. Postop change status post median sternotomy and CABG. Normal size heart. Normal mediastinum and tiana. Normal visualized pulmonary arteries. Normal visualized aortic arch and descending thoracic aorta. Dorsal spine and shoulders demonstrates degenerative change. Normal visualized ribs, and clavicles There is no demonstrated abnormality of the visualized soft tissue structures of the upper abdomen. RAD/Chest 1 View (Portable) IMPRESSION: No acute cardiopulmonary pathology Electronically Signed: Chevy Mccarthy MD at 17:27 EDT ,
[2021-12-07 16:53] LABS: Bacteria RARE /hpf (None Seen); Squamous Epithelial Cells - UA 0-5 SEEN /hpf (5-10); White Blood Cells 0-5 SEEN /hpf (0-5)
== END 2021-12-07 19:47 | disposition home or self-care (01) ==
PROVIDERS: Emergency Provider Emergency Medicine; PCP Internal Medicine; Visit Provider Emergency Medicine
DX: G89.18 Other acute postprocedural pain (principal); R50.9 Fever, unspecified; I10 Essential (primary) hypertension; E78.00 Pure hypercholesterolemia, unspecified; I25.10 Atherosclerotic heart disease of native coronary artery without angina pectoris; M81.0 Age-related osteoporosis without current pathological fracture; Z79.82 Long term (current) use of aspirin; Z79.890 Hormone replacement therapy; Z79.899 Other long term (current) drug therapy; Z96.641 Presence of right artificial hip joint; Z87.891 Personal history of nicotine dependence; Z85.3 Personal history of malignant neoplasm of breast; Z95.1 Presence of aortocoronary bypass graft
CPT/HCPCS: 71045; 73502; 80048; 81001; 85025; 96374; 96375; 96376; 99285; P9612; A4216; J2405

== ENCOUNTER 2021-12-11 13:10 | Emergency (ER) | payer MEDICARE, OTHER, SELFPAY ==
[2021-12-11 13:11] VITALS: BP 130/61; PULSE 74; RESP 16; TEMP 37.1; O2SAT 95; BMI 26.0
--- NOTE | 2021-12-11 13:42 | EDS_ITS ---
HPI History of Present Illness Chief Complaint: Lower Extremity Injury Detail of Chief Complaint: Pain and swelling to the right leg Informant: patient Narrative Narrative: Patient presents to the emergency department with complaint of pain and swelling in her right leg. Patient states that she had a total hip replacement that was done 6 days ago. Today she took some extra time to get her compression stocking on and noted that her right leg was more swollen than usual. Patient then felt slightly short of breath but she thinks that may have been that she panicked and had an anxiety episode. She is currently not feeling short of breath and she denies chest pain. [facility] Medical History Alcohol use Atherosclerotic heart disease of [place] coronary artery without angina pectoris Back pain Bladder disease Cancer Cardiology follow-up encounter Coronary artery disease Difficulty swallowing Dyspnea Essential hypertension Fatigue Former smoker High cholesterol Hip fracture Hip replacement planned History of colitis History of echocardiogram History of pain when walking History of right breast cancer History of stress test Hx of psoriatic arthritis Hyperlipidemia Hypertension Hypotension Influenza B Leg cramps Low iron Nodule of left lung Nonspecific abnormal unspecified cardiovascular function study Osteoporosis Other residential (current) drug therapy Palpitations Precordial chest pain Preoperative cardiovascular examination Pure hypercholesterolemia Syncope and collapse Thyroid disease Wears glasses Wears partial dentures Home Medications carvedilol 12.5 mg PO BID 04/15/13 [History Last Taken 12/06/21] cyanocobalamin (vitamin B-12) 1,000 mcg IM Q30D 04/15/13 [History Last Taken 09/04/17] calcium citrate 200 mg calcium-vitamin D3 6.25 mcg (250 unit) tablet 1 tab PO DAILY tab 09/03/18 [History Last Taken Unknown] apremilast 30 mg tablet 30 mg PO BID 12/23/19 [History Last Taken 12/06/21] denosumab 60 mg/mL subcutaneous syringe 60 mg SC [id number] ml 12/23/19 [History Last Taken Unknown] nitroglycerin 0.4 mg sublingual tablet 0.4 mg SUBLINGUAL Q5M PRN #25 tab 01/10/20 [Rx Last Taken Unknown] coenzyme Q10 100 mg PO DAILY 09/22/20 [History Last Taken Unknown] cholecalciferol (vitamin D3) 50 mcg (2,000 unit) capsule 8,000 unit PO .COMPLEX cap 10/18/21 [History Last Taken Unknown] levothyroxine 112 mcg tablet 112 mcg PO MOTUWETHFRSA tab 10/18/21 [History Last Taken 12/06/21] rosuvastatin 5 mg tablet 5 mg PO SUTUTHSA 10/18/21 [History Last Taken Unknown] tramadol 50 mg tablet 50 mg PO DAILY tab 10/18/21 [History Last Taken Unknown] acetaminophen [Tylenol Ex Str Arthritis Pain] 500 mg PO 4X/DAY 11/23/21 [History Last Taken Unknown] aspirin 81 mg PO BID 11/23/21 [History Last Taken 12/01/21] oxycodone 1 - 2 mg PO Q4H PRN 12/11/21 [History Last Taken Unknown] Allergy/AdvReac Type Severity Reaction Status Date / Time Zpdaeox-OUA-OoH Reductase AdvReac Unknown myalgia Verified 12/11/21 13:10 Inhibitor [Uxpxtaf-Ldl-Fhm Reductase Inhibitor] perflutren [From Definity] AdvReac BACK PAIN Verified 12/11/21 13:10 Family History Father Myocardial infarction CAD (coronary artery disease) Mother Cancer bladder cancer Brother CAD (coronary artery disease) Hx cardiac stent Surgical History H/O tooth extraction H/O two vessel coronary artery bypass graft (~06/16/03) History of bilateral cataract extraction History of carpal tunnel surgery History of hemorrhoidectomy History of hysterectomy hx rectal fissure repair Social History Smoking Status: Former smoker alcohol intake: current Alcohol type: wine substance use type: does not use caffeine: Yes Type: coffee Number of servings: 2 what type of physical activity do you participate in: none do you feel safe at home: Yes ROS ROS ED Constitutional Constitutional ED: Reports systems reviewed and no addt'l complaints, except as documented; Denies body ache(s), change in weight or chills Eyes Eyes: Denies acute decrease in peripheral vision, change in vision, double vision or loss of vision ENT ENT ED: Reports none; Denies ear pain, lip swelling, loss taste/smell, neck pain, otalgia or sore throat Cardiovascular Cardiovascular: Reports none; Denies abdominal pain, chest pain with activity, leg edema, lightheadedness, palpitations, rapid heart rate or syncope Respiratory/Chest Respiratory/Chest: Reports none; Denies change in mental status, dry cough, dyspnea, hemoptysis, shortness of breath at rest or shortness of breath with ex ertion Gastrointestinal Gastrointestinal: Reports none; Denies abdominal pain, change in stool characte r, diarrhea, hematemesis, hematochezia, melena, rectal bleeding or vomiting Genitourinary Genitourinary ED: Reports none; Denies abdominal discomfort, anuria, dysuria, genital pain or polyuria Musculoskeletal Musculoskeletal: Reports none and other Details: Right leg pain and swelling ; Denies arthralgias, back pain, difficulty walking, extremity pain, muscle weakness or myalgias Integumentary Reports none; Denies abscess or rash Neurologic Neurologic: Reports none; Denies abnormal gait, confusion, focal weakness, frequent falls, headache(s), loss of vision, numbness, paresthesias, radicular pain, vertigo or weakness Psychiatric Psychiatric: Reports systems reviewed and no addt'l complaints, except as documented and none; Denies behavioral changes, confusion, difficulty concentrating, hallucinations, suicidal ideation, tactile hallucinations or visual hallucinations Endocrine Endocrinology: Denies none, cold intolerance, excessive sweating, fatigue or heat intolerance Hematologic/Lymphatic Hematologic/Lymphatic: Reports none; Denies anemia, easy bleeding or easy bruising Allergic/Immunologic Allergic/Immunologic ED: Denies as per HPI, none, lip swelling, mouth swelling, throat swelling, tongue swelling or hives EXAM Physical Exam Const Vital Signs: 12/11/21 13:11 Temperature 98.7 F Temperature Source Temporal Pulse Rate 74 Respiratory Rate 16 Blood Pressure 130/61 H Blood Pressure Mean 84 Pulse Ox 95 Oxygen Delivery Method Room Air Positive well nourished and well developed General Appearance ED: well developed and NAD HEENT Reports TM's clear and moist mucous membranes normocephalic and atraumatic; Negative for trauma or tenderness Tympanic Membrane ED: Yes TM's clear Eyes PERRL and EOMs intact bilaterally General Eye ED: Negative for pale conjunctiva or scleral icterus Neck no lymphadenopathy, supple and no JVD General: Negative for tenderness Chest Wall inspection of chest normal and palpation of chest normal Chest: Negative for tenderness Resp normal respiratory effort and clear to auscultation bilaterally Effort and Inspection: Negative for respiratory distress or pain with movement Auscultation: Negative for rhonchi, wheezes or diminished lung sounds Cardio regular rate, regular rhythm, S1 normal heart sound, S2 normal heart sound and no murmurs Peripheral Pulses: pulses 2+ throughout GI normal to inspection, nondistended, normoactive bowel sounds, soft to palpation, non-tender, non-distended and no masses Back/Spine no CVA tenderness and no thoracic nor lumbar tenderness Extremity Extremity Narrative: Evaluation of the right hip does reveal a dressing still in place with surrounding ecchymosis and bruising about the hip. There is +1 edema of the right leg compared to the left leg. She is to has normal pulses both lower extremities. No erythema or cellulitic changes noted. General Extremety ED: Negative for edema General Extremity: Negative for edema Neuro oriented x3, CN's II-XII intact bilaterally, no sensory deficits noted and gait normal Sensorium / Orientation: awake, alert, oriented to person, oriented to place and oriented to time Motor Exam: strength 5/5 throughout and strength abnormal Psych mental status grossly normal Skin no rashes or lesions noted and no wounds MDM MDM MDM Narrative Medical decision making narrative: Patient lab work showed a normal white count of 6.4 her hemoglobin was 9.1. Chemistries unremarkable. Patient was given 1 dose of Eliquis in the emergency department and will order an outpatient venous Doppler to be done as it is not available today. She will come back tomorrow morning. Patient advised to return if chest pain, shortness of breath, or condition should worsen anyway. I did discuss case with orthopedic surgeon on- call for Dr. Nery Guzman. Lab Data Attestation: I reviewed the patient's lab results. Labs: Laboratory Results - last 24 hr 12/11/21 12/11/21 14:00 14:00 WBC 6.4 RBC 3.14 L Hgb 9.1 L Hct 27.7 L MCV 88.2 MCH 29.0 MCHC 32.9 RDW Std Deviation 45.5 H RDW Coeff of [place] 14.2 Plt Count 344 MPV 9.4 Immature Gran % (Auto) 1.600 H Neut % (Auto) 62.9 Lymph % (Auto) 16.0 L [place] % (Auto) 13.4 H Eos % (Auto) 5.8 H Baso % (Auto) 0.3 Absolute Neuts (auto) 4.0 Absolute Lymphs (auto) 1.03 Nucleated RBC % 0 Sodium 135 L Potassium 3.3 L Chloride 101 Carbon Dioxide 27.0 Anion Gap 7 BUN 12 Creatinine 0.52 L Estim Creat Clear Calc 33.29 Est GFR (MDRD) Af Amer 145 Est GFR (MDRD) Non-Af 120 BUN/Creatinine Ratio 23.0 H Glucose 116 H Calcium 8.8 Discharge Plan Triage Chief Complaint: Lower Extremity Injury ED Provider: Byron Coffey Dx/Rx/DC Orders Clinical Impression: Post-op pain, Right leg swelling Instructions: ED Peripheral Edema, Unilateral, ED Post Op Wound Check, Pain Prescriptions: No Action Otezla 30 mg tablet 30 mg PO BID RF: 0 tramadol 50 mg tablet 50 mg PO DAILY RF: 0 rosuvastatin [Crestor] 5 mg tablet 5 mg PO SUTUTHSA RF: 0 carvedilol 12.5 MG tablet 12.5 mg PO BID RF: 0 cyanocobalamin (vitamin B-12) 1,000 MCG/ML solution 1,000 mcg IM Q30D RF: 0 levothyroxine 112 mcg tablet 112 mcg PO MOTUWETHFRSA RF: 0 calcium citrate-vitamin D3 200 mg calcium -250 unit tablet 1 tab PO DAILY RF: 0 denosumab 60 mg/mL syringe 60 mg SC [id number] RF: 0 coenzyme Q10 100 MG capsule 100 mg PO DAILY RF: 0 cholecalciferol (vitamin D3) 50 mcg (2,000 unit) capsule 8,000 unit PO .COMPLEX RF: 0 acetaminophen [Tylenol Ex Str Arthritis Pain] 500 mg Tablet 500 mg PO 4X/DAY RF: 0 aspirin 81 MG tablet,chewable 81 mg PO BID RF: 0 oxycodone 5 mg tablet 1 - 2 mg PO Q4H PRN (Reason: Pain) RF: 0 nitroglycerin 0.4 mg tablet, sublingual 0.4 mg sublingual Q5M PRN (Reason: Chest Pain) Qty: 25 RF: 3 Other Ambulatory Orders: Venous Duplex US, Unilateral (Routine) Facility: [facility] - Location: [facility] Ordered By: Dr. Byron Coffey Primary Care Provider: Stephanie Aceves Referrals: Stephanie Aceves DO [Primary Care Provider] - Olu Chapa DO [STAFF PHYSICIAN] - 3-5 Days Disposition Disposition: Home, Self Care
[2021-12-11 14:14] LABS: Absolute Lymphocyte Count 1.03 X10^3/uL (0.83-4.51); Basophil# 0.02 X10^3/uL; Basophil% 0.3 % (0-1); Eosinophil# 0.37 X10^3/uL; Eosinophils% 5.8 % (0-5); Hematocrit 27.7 % (37-47); Hemoglobin 9.1 g/dL (12.0-15.0); Lymphocyte # 1.03 X10^3/ul (0.83-4.51); Mean Corp Hgb Conc 32.9 g/dL (32-36); Mean Corpuscular Volume 88.2 fL (81-99); Mean Platelet Vol. 9.4 fl (6.2-12.0); Monocyte# 0.86 X10^3/uL; Monocyte% 13.4 % (0-10); NRBC Flagged by Analyzer 0 % (0-5); Neutrophil # 4.04 X10^3/uL (2.7-7.7); Neutrophil % 62.9 % (47-70); Platelet Count 344 K/mm3 (150-450); RBC Distribution Width CV 14.2 % (11.6-14.6); RBC Distribution Width SD 45.5 fl (35.1-43.9); Red Blood Count 3.14 M/mm3 (4.2-5.4); White Blood Count 6.4 K/mm3 (4.4-11.0)
[2021-12-11 14:27] LABS: Anion Gap 7 (5-15); BUN 12 mg/dL (7-18); Calcium,Total 8.8 mg/dL (8.5-10.1); Chloride 101 mmol/L (98-107); Creatinine, Serum 0.52 mg/dL (0.55-1.02); EST Glomerular Filtration Rate 120 mL/min (>60); Est Glom Filt Rate - Afr Amer 145 mL/min (>60); Estimated Creatinine Clearance 33.29 ml/min; Glucose 116 mg/dL (74-106); Potassium 3.3 mmol/L (3.5-5.1); Sodium Level 135 mmol/L (136-145)
[2021-12-11] MEDS: APIXABAN 5 MG TABLET 10 MG PO (15:05)
== END 2021-12-11 15:24 | disposition home or self-care (01) ==
PROVIDERS: Emergency Provider Emergency Medicine; PCP Internal Medicine; Visit Provider Emergency Medicine
DX: G89.18 Other acute postprocedural pain (principal); M06.9 Rheumatoid arthritis, unspecified; M79.604 Pain in right leg; M79.89 Other specified soft tissue disorders; I10 Essential (primary) hypertension; I25.10 Atherosclerotic heart disease of native coronary artery without angina pectoris; E78.00 Pure hypercholesterolemia, unspecified; M81.0 Age-related osteoporosis without current pathological fracture; Z79.82 Long term (current) use of aspirin; Z79.890 Hormone replacement therapy; Z79.899 Other long term (current) drug therapy; Z87.891 Personal history of nicotine dependence
CPT/HCPCS: 80048; 85025; 99284; A4216

== ENCOUNTER → 2021-12-12 | Outpatient (CLI) | payer MEDICARE, OTHER, SELFPAY ==
--- NOTE | 2021-12-12 10:42 | VDLE_ITS ---
Reason For Study: Swelling RIGHT GSV is normal. CFV is compressible, spontaneous, phasic, competent and demonstrates normal augmentation. FV is compressible, spontaneous, phasic, competent and demonstrates normal augmentation. POP V is compressible, spontaneous, phasic, competent and demonstrates normal augmentation. T/P Trunk is compressible. PTV is compressible. RT PerV is compressible. Procedure This is a venous duplex using B-mode, color flow and spectral Doppler. Exam performed in department. A preliminary report was called and/or faxed to PCP: Ketan and Ortho: Eduard. Pt seen in ED 12/11/21, exam done as next day ED scan. VL/Venous Duplex US, Unilateral Interpretation Summary There is no evidence of right lower extremity deep vein thrombosis. Right great saphenous vein appears patent and compressible segmentally. Ordering Physician: Byron Coffey Referring Physician: Stephanie Aceves D.O. Performed By: Hermelinda Gibson RVT
== END | disposition home or self-care (01) ==
LOC: VL 10:32
PROVIDERS: PCP Internal Medicine; Referring Provider Emergency Medicine; Visit Provider Emergency Medicine
DX: M79.89 Other specified soft tissue disorders (principal)
CPT/HCPCS: 93971

== ENCOUNTER → 2022-01-17 | Outpatient (CLI) | payer MEDICARE, OTHER, SELFPAY ==
[2022-01-17 13:25] VITALS: BP 131/47; PULSE 54; RESP 16; TEMP 36.8; O2SAT 97; BMI 23.8
[2022-01-17] MEDS: DENOSUMAB 60 MG/ML SC (13:31)
== END | disposition home or self-care (01) ==
LOC: MEDOUTP 13:08
PROVIDERS: PCP Internal Medicine; Referring Provider Internal Medicine; Visit Provider Internal Medicine
DX: M81.0 Age-related osteoporosis without current pathological fracture (principal)
CPT/HCPCS: 96372; J0897

== ENCOUNTER → 2022-04-15 | Outpatient (CLI) | payer MEDICARE, OTHER, SELFPAY ==
--- NOTE | 2022-04-15 09:59 | CDU_ITS ---
Reason For Study: CAROTID STENOSIS Rt. Velocities/BP Lt. Velocities/BP Prox CCA 60.4/11.2 cm/sec. Prox CCA 96.6/12.6 cm/sec. Mid CCA 76.4/14.1 cm/sec. Mid CCA 75.9/11.6 cm/sec. Dist CCA 74.3/10.0 cm/sec. Dist CCA 65.8/12.8 cm/sec. Prox ICA 72.4/17.6 cm/sec. Prox ICA 90.6/15.7 cm/sec. Mid ICA 112.5/26.7 cm/sec. Mid ICA 88.8/26.7 cm/sec. Dist ICA 94.8/23.9 cm/sec. Dist ICA 66.1/17.5 cm/sec. Rt. ICA/CCA = 1.5. Lt. ICA/CCA = 1.2. Prox ECA 75.2/10.0 cm/sec. Prox ECA 90.4/6.9 cm/sec. Rt. Vert. 41.2/8.1 cm/sec. Lt. Vert. 36.6/6.3 cm/sec. Right Extracranial There is intimal thickening but no significant atherosclerotic plaque noted in the right common carotid artery. There is heterogeneous, irregular atherosclerotic plaque noted in the right internal carotid artery. There is heterogeneous, smooth atherosclerotic plaque noted in the right external carotid artery. Antegrade flow is noted in the right vertebral artery. Left Extracranial There is intimal thickening but no significant atherosclerotic plaque noted in the left common carotid artery. There is heterogeneous, irregular atherosclerotic plaque noted in the left internal carotid artery. There is heterogeneous, smooth atherosclerotic plaque noted in the left external carotid artery. Antegrade flow is noted in the left vertebral artery. Procedure Carotid Duplex [id number]. This is a Carotid Duplex examination using B-mode, color flow and specral Doppler. The exam was diagnostic. Exam performed in department. VL/Carotid Duplex Ultrasound Interpretation Summary Mild (<50%) stenosis right extracranial internal carotid. Mild (<50%) stenosis left extracranial internal carotid. Patent and antegrade vertebrals bilaterally. Ordering Physician: Stephanie Aceves Referring Physician: Stephanie Aceves Performed By: Gurmeet Hernandez RVT
== END | disposition home or self-care (01) ==
LOC: CVS 09:57
PROVIDERS: PCP Internal Medicine; Referring Provider Internal Medicine; Visit Provider Internal Medicine
DX: I65.23 Occlusion and stenosis of bilateral carotid arteries (principal)
CPT/HCPCS: 93880

== ENCOUNTER → 2022-06-30 | Outpatient (CLI) | payer MEDICARE, OTHER, SELFPAY ==
--- NOTE | 2022-06-30 12:20 | MRI_ITS ---
STUDY: MR PELVIS WITHOUT CONTRAST REASON FOR EXAM: Female, 82 years old. PELVIS PAIN, STESS FX SUSPECTED TECHNIQUE: Standardized fat and water weighted pulse sequences were obtained in all 3 orthogonal planes. COMPARISON: X-ray 12/07/2021 FINDINGS: Normal urinary bladder. Normal visualized small intestine. Normal visualized colon. There is no pelvic fluid. There is no pelvic mass lesion or lymphadenopathy. Normal visualized pelvic arteries. Status post right hip hemiarthroplasty with metallic susceptibility and aspect distortion ratio artifact. 4 cm fluid collection laterally consistent with a postoperative seroma or greater trochanteric bursitis. Percutaneous screws within the left femoral neck. Irregularity and sclerosis of the articular surface of the femoral head worrisome for avascular necrosis. Normal abdominal wall. MRI/Pelvis (Routine) IMPRESSION: 1. Status post right hip hemiarthroplasty with a lateral fluid collection possibly consistent with seroma or greater trochanteric bursitis. 2. 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 Electronically Signed: Carlos Jurado MD at 22:46 EST ,
[2022-06-30 13:34] LABS: Absolute Lymphocyte Count 1.19 X10^3/uL (0.83-4.51); Absolute Neutrophil Count 3.2 X10^3/uL (2.0-7.7); Basophil# 0.03 X10^3/uL; Basophil% 0.6 % (0-1); Eosinophil# 0.28 X10^3/uL; Eosinophils% 5.4 % (0-5); Hematocrit 36.2 % (37-47); Lymphocyte # 1.19 X10^3/ul (0.83-4.51); Lymphocyte % 22.8 % (19-41); Mean Corp Hgb Conc 33.1 g/dL (32-36); Mean Corpuscular Hgb 28.6 pg (27.0-32.0); Mean Corpuscular Volume 86.4 fL (81-99); Mean Platelet Vol. 9.3 fl (6.2-12.0); Monocyte% 9.6 % (0-10); NRBC Flagged by Analyzer 0 % (0-5); Neutrophil # 3.19 X10^3/uL (2.7-7.7); Neutrophil % 60.8 % (47-70); Platelet Count 235 K/mm3 (150-450); RBC Distribution Width CV 15.1 % (11.6-14.6); RBC Distribution Width SD 47.8 fl (35.1-43.9); Red Blood Count 4.19 M/mm3 (4.2-5.4); White Blood Count 5.2 K/mm3 (4.4-11.0)
[2022-06-30 13:56] LABS: CRP 7.86 mg/L (0.0-3.0)
[2022-06-30 14:20] LABS: Erythrocyte Sedimentation Rate 14 mm/hr (0-30)
== END | disposition home or self-care (01) ==
LOC: MRI 12:16
PROVIDERS: PCP Internal Medicine; Visit Provider Orthopaedic Surgery
DX: R10.2 Pelvic and perineal pain (principal); M25.552 Pain in left hip; Z96.641 Presence of right artificial hip joint
CPT/HCPCS: 36415; 72195; 85025; 85652; 86140

== ENCOUNTER → 2022-07-14 | Outpatient (CLI) | payer MEDICARE, OTHER, SELFPAY ==
--- NOTE | 2022-07-14 10:31 | BI_ITS ---
MAMMOGRAPHY - BILATERAL SCREENING REASON FOR EXAM: Female, 82 years old. Routine annual screening examination. PERTINENT HISTORY: Personal history of breast cancer. Prior right lumpectomy and radiation treatment. TECHNIQUE: Digital bilateral breast jinny (3D mammographic acquisition) in the CC and MLO projections. 2-D mediolateral oblique (MLO) and craniocaudad (CC) views of both breasts were obtained. CAD: Full Field Digital Mammography with Computer Added Detection was performed. COMPARISON: Comparison is made with prior study dated 07/13/2021 and 07/09/2020. FINDINGS: Breast Composition: The breasts are heterogeneously dense, which may obscure small masses. There are no dominant masses or suspicious calcifications. Stable mild degree of scarring in the deep lateral aspect of the right breast in keeping with the prior lumpectomy. Stable vascular calcifications. No other significant abnormalities are identified. There has been no significant change since the prior study. BI/SCRN MAMM (CAD)W/JINNY BILAT IMPRESSION: Stable bilateral screening mammogram. Yearly follow-up mammogram recommended. (A) ASSESSMENT CATEGORY: BIRADS Category 2: Benign. A letter regarding these results will be sent to the patient by the facility within 30 days. Approximately 10% of breast cancers are not detected by mammography. A normal mammogram should not delay biopsy of a clinically suspicious abnormality. [id number] Electronically Signed: Nirav Lane MD at 11:52 EST ,
== END | disposition home or self-care (01) ==
LOC: OPBI 10:29
PROVIDERS: PCP Internal Medicine; Referring Provider Internal Medicine; Visit Provider Internal Medicine
DX: Z12.31 Encounter for screening mammogram for malignant neoplasm of breast (principal)
CPT/HCPCS: 77063; 77067

== ENCOUNTER → 2022-07-18 | Outpatient (CLI) | payer MEDICARE, OTHER, SELFPAY ==
[2022-07-18 13:30] VITALS: BP 122/76; PULSE 52; RESP 16; TEMP 36.4; O2SAT 100; BMI 24.1
[2022-07-18] MEDS: DENOSUMAB 60 MG/ML SC (13:47)
== END | disposition home or self-care (01) ==
LOC: MEDOUTP 13:23
PROVIDERS: PCP Internal Medicine; Referring Provider Internal Medicine; Visit Provider Internal Medicine
DX: M81.0 Age-related osteoporosis without current pathological fracture (principal)
CPT/HCPCS: 96372; J0897

== ENCOUNTER → 2022-09-14 | Outpatient (CLI) | payer MEDICARE, OTHER, SELFPAY ==
[2022-09-14 10:06] LABS: Absolute Lymphocyte Count 1.29 X10^3/uL (0.83-4.51); Absolute Neutrophil Count 3.2 X10^3/uL (2.0-7.7); Basophil# 0.04 X10^3/uL; Basophil% 0.7 % (0-1); Eosinophil# 0.22 X10^3/uL; Eosinophils% 4.1 % (0-5); Hematocrit 40.9 % (37-47); Hemoglobin 12.8 g/dL (12.0-15.0); Lymphocyte # 1.29 X10^3/ul (0.83-4.51); Lymphocyte % 24.1 % (19-41); Mean Corp Hgb Conc 31.3 g/dL (32-36); Mean Corpuscular Hgb 27.5 pg (27.0-32.0); Mean Corpuscular Volume 87.8 fL (81-99); Mean Platelet Vol. 10.1 fl (6.2-12.0); Monocyte# 0.54 X10^3/uL; Monocyte% 10.1 % (0-10); NRBC Flagged by Analyzer 0 % (0-5); Neutrophil # 3.22 X10^3/uL (2.7-7.7); Neutrophil % 60.3 % (47-70); Platelet Count 259 K/mm3 (150-450); RBC Distribution Width SD 47.8 fl (35.1-43.9); Red Blood Count 4.66 M/mm3 (4.2-5.4); White Blood Count 5.4 K/mm3 (4.4-11.0)
[2022-09-14 10:49] LABS: ALB/GLOB Ratio 1.1 RATIO (0.9-2.4); AST(SGOT) 16 U/L (15-37); Alanine Aminotransfer ALT/SGPT 18 U/L (13-56); Alkaline Phosphatase 46 U/L (45-117); Anion Gap 10 (5-15); BUN 11 mg/dL (7-18); BUN/Creat Ratio 20.1 RATIO (10-20); CRP, High Sensitivity Cardiac 5.96 mg/L; Calcium,Total 9.1 mg/dL (8.5-10.1); Chloride 102 mmol/L (98-107); Cholesterol 171 mg/dL (200); Creatinine, Serum 0.55 mg/dL (0.55-1.02); EST Glomerular Filtration Rate 113 mL/min (>60); Est Glom Filt Rate - Afr Amer 137 mL/min (>60); Globulin 3.6 g/dL (2.2-4.2); Glucose 106 mg/dL (74-106); High Density Lipoprotein 70 mg/dL; Potassium 3.6 mmol/L (3.5-5.1); Protein, Total 7.6 g/dL (6.4-8.2); Sodium Level 137 mmol/L (136-145); Thyroid Stim Hormone (TSH) 1.78 uIU/mL (0.358-3.74); Triglycerides 96 mg/dL; Very Low Density Lipoprotein 19 mg/dL (5-40)
== END | disposition home or self-care (01) ==
LOC: LAB 08:36
PROVIDERS: PCP Internal Medicine; Referring Provider Internal Medicine; Visit Provider Internal Medicine
DX: R79.82 Elevated C-reactive protein (CRP) (principal); E78.49 Other hyperlipidemia; E03.9 Hypothyroidism, unspecified; I10 Essential (primary) hypertension
CPT/HCPCS: 36415; 80053; 80061; 84443; 85025; 86141

== ENCOUNTER 2022-12-09 01:18 | Emergency (ER) | payer MEDICARE, OTHER, SELFPAY ==
[2022-12-09 01:19] VITALS: BP 143/63; PULSE 70; RESP 18; TEMP 36.5; O2SAT 100; BMI 24.8
--- NOTE | 2022-12-09 01:24 | EDS_ITS ---
HPI History of Present Illness Chief Complaint: Lower Extremity Injury [facility] Medical History Alcohol use Atherosclerotic heart disease of [place] coronary artery without angina pectoris Back pain Bladder disease Cancer Cardiology follow-up encounter Coronary artery disease Difficulty swallowing Dyspnea Essential hypertension Fatigue Former smoker High cholesterol Hip fracture Hip replacement planned History of colitis History of echocardiogram History of pain when walking History of right breast cancer History of stress test Hx of psoriatic arthritis Hyperlipidemia Hypertension Hypotension Influenza B Leg cramps Low iron Nodule of left lung Nonspecific abnormal unspecified cardiovascular function study Osteoporosis Other halfway (current) drug therapy Palpitations Precordial chest pain Preoperative cardiovascular examination Pure hypercholesterolemia Syncope and collapse Thyroid disease Wears glasses Wears partial dentures Home Medications carvedilol 12.5 mg tablet 12.5 mg PO BID 04/15/13 [History Last Taken 12/06/21] cyanocobalamin (vitamin B-12) 1,000 mcg/mL injection solution 1,000 mcg IM Q30D 04/15/13 [History Last Taken 09/04/17] calcium citrate 200 mg calcium-vitamin D3 6.25 mcg (250 unit) tablet 1 tab PO DAILY 09/03/18 [History Last Taken Unknown] apremilast 30 mg tablet (Otezla) 30 mg PO BID 12/23/19 [History Last Taken 12/06/21] denosumab 60 mg/mL subcutaneous syringe 60 mg subcut [id number] 12/23/19 [History Last Taken Unknown] nitroglycerin 0.4 mg sublingual tablet 0.4 mg sublingual Q5M PRN Chest Pain #25 tabs 01/10/20 [Rx Last Taken Unknown] coenzyme Q10 100 mg capsule 100 mg PO DAILY 09/22/20 [History Last Taken Unknown] levothyroxine 112 mcg tablet 112 mcg PO MOTUWETHFRSA 10/18/21 [History Last Taken 12/06/21] acetaminophen 500 mg tablet 500 mg PO 4X/DAY PRN Pain 04/21/22 [History Last Taken Unknown] aspirin 81 mg chewable tablet 81 mg PO DAILY 04/21/22 [History Last Taken Unknown] cholecalciferol (vitamin D3) 50 mcg (2,000 unit) capsule 5,000 unit PO DAILY 04/21/22 [History Last Taken Unknown] rosuvastatin 5 mg tablet (Crestor) 5 mg PO DAILY 04/21/22 [History Last Taken Unknown] tramadol 50 mg tablet 50 mg PO DAILY PRN Pain 04/21/22 [History Last Taken Unknown] arginine (L-arginine) 500 mg capsule mg PO DAILY 10/17/22 [History Last Taken Unknown] cephalexin 500 mg capsule 500 mg PO Q8H 7 days #21 caps 12/09/22 [Rx Last Taken Unknown] sulfamethoxazole 800 mg-trimethoprim 160 mg tablet (Bactrim DS) 1 tab PO BID 7 days #14 tabs 12/09/22 [Rx Last Taken Unknown] Allergy/AdvReac Type Severity Reaction Status Date / Time Xcjaupm-[id number]-YlU Reductase AdvReac Unknown myalgia Verified 10/17/22 11:29 Inhibitor [Tkywnfm-Qfq-Zkx Reductase Inhibitor] perflutren [From Definity] AdvReac BACK PAIN Verified 10/17/22 11:29 Family History Father Myocardial infarction CAD (coronary artery disease) Mother Cancer bladder cancer Brother CAD (coronary artery disease) Hx cardiac stent Surgical History H/O tooth extraction H/O two vessel coronary artery bypass graft (~06/16/03) History of bilateral cataract extraction History of carpal tunnel surgery History of hemorrhoidectomy History of hysterectomy hx rectal fissure repair Social History Smoking Status: Former smoker alcohol intake: current Alcohol type: wine substance use type: does not use caffeine: Yes Type: coffee Number of servings: 2 what type of physical activity do you participate in: none do you feel safe at home: Yes EXAM Physical Exam Const Vital Signs: 12/09/22 01:19 12/09/22 01:19 Temperature 97.7 F L Temperature Source Temporal Pulse Rate 70 Respiratory Rate 18 Blood Pressure 143/63 H Blood Pressure Mean 89 Pulse Ox 100 Oxygen Delivery Method Room Air MDM MDM MDM Narrative Medical decision making narrative: HISTORY OF PRESENT ILLNESS: 82-year-old female here for left lower leg redness pain increased swelling. She notes chills but no fever. States she had a varicose vein cauterized on Monday. REVIEW OF SYSTEMS: Pertinent positives: Redness, pain Pertinent negatives: Crepitus, fluctuance PHYSICAL EXAM: Nursing triage notes reviewed, Vital signs reviewed Constitutional: please see mdm Extremities: No edema Neuro: Intact sensation L1-S1 dermatomal distributions. Intact 5/5 strength in hip flexion (T12-L3). Knee extension (L2-L4). Ankle dorsiflexion (L4-L5). Ankle plantar flexion (S1). Great toe extension (L5). 2+ patellar and Achilles DTRs. Skin: Area of cauterized tissue is dark appearing, around this there is a square area approximate 2 x 2 cm of redness, increasing pain and warmth. There is no fluctuance induration crepitus or bullae noted MEDICAL DECISION MAKING: Chief Complaint: Wound infection External records reviewed: No recent ED visits Factors affecting care: Hypothyroidism, hyperlipidemia, hypertension, CAD Social determinants of health: Former smoker, current alcohol user in the form of 1 History obtained from others: The patient's Consults: None ALL IMAGES (IF OBTAINED) HAVE BEEN PERSONALLY REVIEWED AND INTERPRETED BY [facility] Narrative: Exam consistent with cellulitis versus contact dermatitis. No evidence of abscess or necrotizing fasciitis noted. Given recent cauterization I will cover for infectious etiology such as strep or staph with Bactrim and Keflex. Gave strict return precautions and follow-up instructions. The patient and/or family, caregivers express understanding. The patient and/or family, caregivers agrees with the plan. Total critical care time today provided was at least 0 minutes. This excludes separately billable procedures. Critical care time (if documented) is secondary to the patient having high probability of clinically significant/life threatening deterioration in the patient's condition which required my urgent intervention. Shared decision making: I will have a discussion with the patient and or visitors regarding risk/benefits of further testing or admission. They will be made aware of of the risk/benefits inherent in this decision they will be given the opportunity to voice understanding. Discharge Plan Triage Chief Complaint: Lower Extremity Injury ED Provider: Kvng Barcenas Dx/Rx/DC Orders Clinical Impression: Cellulitis Instructions: Cellulitis Dc Prescriptions: New cephalexin 500 mg capsule 500 mg PO Q8H 7 Days Qty: 21 0RF sulfamethoxazole-trimethoprim [Bactrim DS] 800-160 mg tablet 1 tab PO BID 7 Days Qty: 14 0RF No Action Otezla 30 mg tablet 30 mg PO BID tramadol 50 mg tablet 50 mg PO DAILY PRN (Reason: Pain) rosuvastatin [Crestor] 5 mg tablet 5 mg PO DAILY arginine (L-arginine) 500 mg capsule PO DAILY carvedilol 12.5 MG tablet 12.5 mg PO BID cyanocobalamin (vitamin B-12) 1,000 MCG/ML solution 1,000 mcg IM Q30D levothyroxine 112 mcg tablet 112 mcg PO MOTUWETHFRSA Label Comments: 6 days a week Rx Instructions: 112 mcg PO Monday thru Monday; calcium citrate-vitamin D3 200 mg calcium -250 unit tablet 1 tab PO DAILY denosumab 60 mg/mL syringe 60 mg SC [id number] Label Comments: EVERY 6 MONTHS coenzyme Q10 100 MG capsule 100 mg PO DAILY cholecalciferol (vitamin D3) 50 mcg (2,000 unit) capsule 5,000 unit PO DAILY aspirin 81 mg tablet,chewable 81 mg PO DAILY acetaminophen 500 mg tablet 500 mg PO 4X/DAY PRN (Reason: Pain) nitroglycerin 0.4 mg tablet, sublingual 0.4 mg sublingual Q5M PRN (Reason: Chest Pain) Qty: 25 3RF Primary Care Provider: Stephanie Aceves Referrals: Stephanie Aceves DO [Primary Care Provider] - Activity Restrictions/Additional Instructions: Thank you for trusting us with your care today! Please take Tylenol (2 pills, 650 mg), ibuprofen (2 pills, 400 mg) every 6 hours as needed for pain and fever control. Please take antibiotics as prescribed. Please complete entire course Please return to the emergency department if your symptoms change or worsen. If cannot tolerate antibiotics by mouth. If your redness suddenly worsens, pain becomes uncontrolled. Please follow with your primary care physician for further outpatient evaluation and management. Disposition Disposition: Home, Self Care
[2022-12-09] MEDS: Smz/Tmp Ds Tablet 1 TABLET PO (01:50)
[2022-12-09] MEDS: Cephalexin 250 MG Capsule 500 MG PO (01:50)
[2022-12-09] MEDS: Ibuprofen 200 MG Tablet 400 MG PO (01:50)
== END 2022-12-09 02:09 | disposition home or self-care (01) ==
LOC: ED 01:42
PROVIDERS: Emergency Provider Emergency Medicine; PCP Internal Medicine; Visit Provider Emergency Medicine
DX: L03.116 Cellulitis of left lower limb (principal); I25.10 Atherosclerotic heart disease of native coronary artery without angina pectoris; E78.00 Pure hypercholesterolemia, unspecified; I10 Essential (primary) hypertension; R68.83 Chills (without fever); M79.662 Pain in left lower leg; E03.9 Hypothyroidism, unspecified; Z79.82 Long term (current) use of aspirin; Z79.899 Other long term (current) drug therapy; Z87.891 Personal history of nicotine dependence
CPT/HCPCS: 99283

== ENCOUNTER 2023-01-26 14:38 | Outpatient (CLI) | payer MEDICARE, OTHER, SELFPAY ==
[2023-01-26 14:43] VITALS: BP 121/51; BMI 23.4
[2023-01-26] MEDS: DENOSUMAB 60 MG/ML SC (15:00)
== END 2023-01-26 14:39 | disposition home or self-care (01) ==
LOC: MEDOUTP 14:38
PROVIDERS: PCP Internal Medicine; Referring Provider Internal Medicine; Visit Provider Internal Medicine
DX: M81.0 Age-related osteoporosis without current pathological fracture (principal)
CPT/HCPCS: 96372; J0897

== ENCOUNTER → 2023-05-02 | Outpatient (CLI) | payer MEDICARE, OTHER, SELFPAY ==
--- NOTE | 2023-05-02 10:01 | CDU_ITS ---
Reason For Study: Carotid stenosis Rt. Velocities/BP Lt. Velocities/BP Prox CCA 78.7/11.6 cm/sec. Prox CCA 94.9/15.1 cm/sec. Mid CCA 91.9/11.6 cm/sec. Mid CCA 85.1/15.1 cm/sec. Dist CCA 72.1/9.7 cm/sec. Dist CCA 76.5/12.6 cm/sec. Prox ICA 74/17.6 cm/sec. Prox ICA 69.1/12.6 cm/sec. Mid ICA 94.9/23.7 cm/sec. Mid ICA 88.1/22.8 cm/sec. Dist ICA 91.6/21.9 cm/sec. Dist ICA 74.3/18.9 cm/sec. Rt. ICA/CCA = 1.21. Lt. ICA/CCA = 1.04. Prox ECA 135.7/4.2 cm/sec. Prox ECA 92.5/4.1 cm/sec. Rt. Vert. 72.8/11.4 cm/sec. Lt. Vert. 51.9/9 cm/sec. Right Extracranial There is intimal thickening but no significant atherosclerotic plaque noted in the right common carotid artery. There is heterogeneous, irregular atherosclerotic plaque noted in the right internal carotid artery. There is homogeneous, smooth atherosclerotic plaque noted in the right external carotid artery. Antegrade flow is noted in the right vertebral artery. Left Extracranial There is intimal thickening but no significant atherosclerotic plaque noted in the left common carotid artery. There is heterogeneous, irregular atherosclerotic plaque noted in the left internal carotid artery. There is intimal thickening but no significant atherosclerotic plaque noted in the left external carotid artery. Antegrade flow is noted in the left vertebral artery. Procedure Carotid Duplex 61152. This is a Carotid Duplex examination using B-mode, color flow and specral Doppler. Exam performed in department. VL/Carotid Duplex Ultrasound Interpretation Summary Mild (<50%) stenosis right extracranial internal carotid. Mild (<50%) stenosis left extracranial internal carotid. Flow within the vertebral arteries is antegrade bilaterally. Ordering Physician: Stephanie Aceves Referring Physician: Stephanie Aceves Performed By: Hermelinda Gibson RVT
--- NOTE | 2023-05-02 10:50 | BD_ITS ---
STUDY: DUAL ENERGY X-RAY ABSORPTIOMETRY / DXA REASON FOR EXAM: Female, 83 years old. [id number] TECHNIQUE: Bone Mineral Density (BMD) measurements of lumbar spine and left forearm were obtained. COMPARISON: Comparison is made with prior study dated March 03, 2021. FINDINGS: Lumbar Spine (L1-L4): g/cm2 (1.042) / T-score (0.0) / Z-score (2.8) Findings are suggestive of normal bone density with a low fracture risk. Left Forearm: g/cm2 (0.528) / T-score (-0.9) / Z-score (2.4) The T-Scores on the most recent prior examination were: Lumbar Spine (L1-L4): There has been improvement of bone density since the previous examination. BD/Dexa Bone Density Study IMPRESSION: The patient is considered normal as outlined below according to World Mason Organization (WHO) criteria with a low fracture risk. There has been improvement of bone density since the previous examination. Reference Information: The T-score is the number of standard deviations above or below the standard which is normal for young adults at their peak bone mineral density. The World Health Organization (WHO) interprets the T-scores as follows: Above -1 Normal bone density Between -1 and -2.5 Osteopenia Equal to / or below -2.5 Osteoporosis As a practical clinical guideline, osteopenia may be graded as follows: Mild -1 through -1.5 Moderate -1.6 through -2.0 Severe -2.1 through -2.4 The Z-score is the number of standard deviations above or below age-matched controls. A Z-score of less than -1.5 would be considered abnormal. References: 1. NIH Osteoporosis and Related Bone Diseases www osteo.org 2. International Society for Clinical Densitometry www iscd.org 3. National Osteoporosis Foundation www nof.org Electronically Signed: Nirav Lane MD at 13:01 EDT ,
== END | disposition home or self-care (01) ==
LOC: CVS 09:57
PROVIDERS: PCP Internal Medicine; Referring Provider Internal Medicine; Visit Provider Internal Medicine
DX: I65.23 Occlusion and stenosis of bilateral carotid arteries (principal); Z13.820 Encounter for screening for osteoporosis; Z78.0 Asymptomatic menopausal state
CPT/HCPCS: 77080; 93880

== ENCOUNTER → 2023-05-16 | Outpatient (CLI) | payer MEDICARE, OTHER, SELFPAY ==
--- NOTE | 2023-05-16 12:50 | RAD_ITS ---
EXAM: XR LEFT HIP WITH PELVIS WHEN PERFORMED, 2 OR 3 VIEWS CLINICAL INDICATION: buttock pain TECHNIQUE: Two or three views of the left hip with pelvis when performed. COMPARISON: 12/06/2021. FINDINGS: BONES/JOINTS: Right total hip arthroplasty. Components appear well seated. Prominent bilateral facet arthropathy in the lower lumbar spine. No displaced fracture. No destructive or sclerotic lesions. Note that overlapping bowel shadows may however obscure fine detail. Sacroiliac joint is unremarkable. No widening of the pubic symphysis. SOFT TISSUES: Unremarkable. No soft tissue swelling or gas. TUBES, LINES AND DEVICES: No change in the cannulated screws left hip with mild degenerative changes of the left hip joint. RAD/HIP, UNI W/ Pelvis 2-3 Views IMPRESSION: 1. No change in the cannulated screws left hip with mild degenerative changes of the left hip joint. 2. Right total hip arthroplasty. Components appear well seated. 3. Prominent bilateral facet arthropathy in the lower lumbar spine. Electronically Signed: Olu Vidal MD at 6:11 EST ,
--- NOTE | 2023-05-16 13:10 | RAD_ITS ---
STUDY: X-RAY - LUMBAR SPINE REASON FOR EXAM: Female, 83 years old. low back pain TECHNIQUE: 4 view(s) of the lumbar spine were obtained. COMPARISON: 12/09/2020 FINDINGS: Normal lumbar lordosis. Mild dextroscoliosis centered at L2/L3. 2 mm retrolisthesis of L2 on L3. There is multilevel endplate spondylosis of the lumbar vertebrae. There is multi-level degenerative disc disease with multi-level disc space narrowing. Facet hypertrophy in the lower lumbar spine. The soft tissue structures are unremarkable. RAD/L/S Spine Min 4 Views IMPRESSION: Mild dextroscoliosis with degenerative disc disease. MRI may be useful. Electronically Signed: Carlos Jurado MD at 23:31 EST ,
== END | disposition home or self-care (01) ==
LOC: MTRAD 12:50
PROVIDERS: PCP Internal Medicine; Referring Provider Internal Medicine; Visit Provider Internal Medicine
DX: M54.50 Low back pain, unspecified (principal); M79.18 Myalgia, other site
CPT/HCPCS: 72110; 73502

== ENCOUNTER 2023-07-28 12:52 | Outpatient (CLI) | payer MEDICARE, OTHER, SELFPAY ==
[2023-07-28 13:04] VITALS: BP 122/50; PULSE 54; RESP 16; TEMP 36.5; O2SAT 99; BMI 22.3
[2023-07-28] MEDS: DENOSUMAB 60 MG/ML SC (13:07)
== END 2023-07-28 12:53 | disposition home or self-care (01) ==
LOC: MEDOUTP 12:54
PROVIDERS: PCP Internal Medicine; Referring Provider Internal Medicine; Visit Provider Internal Medicine
DX: M81.0 Age-related osteoporosis without current pathological fracture (principal)
CPT/HCPCS: 96372; J0897

== ENCOUNTER → 2023-08-16 | Outpatient (CLI) | payer MEDICARE, OTHER, SELFPAY ==
--- NOTE | 2023-08-16 13:43 | BI_ITS ---
MAMMOGRAPHY - BILATERAL SCREENING REASON FOR EXAM: Female, 83 years old. Routine annual screening examination. PERTINENT HISTORY: Personal history of breast cancer. Prior right lumpectomy and radiation treatment. TECHNIQUE: Digital bilateral breast jinny (3D mammographic acquisition) in the CC and MLO projections. 2-D mediolateral oblique (MLO) and craniocaudad (CC) views of both breasts were obtained. CAD: Full Field Digital Mammography with Computer Added Detection was performed. COMPARISON: Comparison is made with prior study dated July 14, 2022 and July 13, 2021. FINDINGS: Breast Composition: The breasts are heterogeneously dense, which may obscure small masses. There are no dominant masses or suspicious calcifications. Stable bilateral secretory calcifications. No other significant abnormalities are identified. There has been no significant change since the prior study. BI/SCRN MAMM (CAD)W/JINNY BILAT IMPRESSION: Stable bilateral screening mammogram. Yearly follow-up mammogram recommended. (A) ASSESSMENT CATEGORY: BIRADS Category 2: Benign. A letter regarding these results will be sent to the patient by the facility within 30 days. Approximately 10% of breast cancers are not detected by mammography. A normal mammogram should not delay biopsy of a clinically suspicious abnormality. [id number] Electronically Signed: Nirav Lane MD at 14:13 EST ,
== END | disposition home or self-care (01) ==
LOC: OPBI 13:43
PROVIDERS: PCP Internal Medicine; Referring Provider Internal Medicine; Visit Provider Internal Medicine
DX: Z12.31 Encounter for screening mammogram for malignant neoplasm of breast (principal); Z85.3 Personal history of malignant neoplasm of breast
CPT/HCPCS: 77063; 77067

== ENCOUNTER → 2023-09-08 | Outpatient (CLI) | payer MEDICARE, OTHER, SELFPAY ==
--- NOTE | 2023-09-08 10:04 | ECHOD_ITS ---
Reason For Study: MURMUR Procedure This was a 2D Doppler, Color Flow transthoracic echocardiogram. Exam performed in department. Left Ventricle Normal LV size. The estimated ejection fraction is 65 %. Unable to assess diastolic dysfunction. No regional wall motion abnormalities noted. Right Ventricle Normal RV size. Normal systolic function. Atria The left atrium is moderately enlarged. Normal right atrium. No doppler evidence for ASD. Mitral Valve There is moderate to severe mitral annular calcification. There is no mitral valve stenosis. No eccentric mitral valve insufficiency. Tricuspid Valve There is no tricuspid stenosis. Moderate (2+) tricuspid valve insufficiency. Pulmonary artery systolic pressure is 35-40 mmHg. Aortic Valve Trisinus/trileaflet aortic valve. There is no aortic stenosis. No aortic valve insufficiency. Pulmonic Valve There is no pulmonic valvular stenosis. No pulmonic valve insufficiency. Great Vessels Normal aortic root. Pericardium/Pleural No pericardial effusion. MMode/2D Measurements & Calculations LVIDd: 4.2 cm IVSd: 1.0 cm Ao root diam: 3.1 cm LVIDs: 2.7 cm LVPWd: 1.0 cm RVDd: 3.7 cm FS: 34.3 % LAV(MOD-bp): 50.3 ml LVAd ap4: 22.6 cm2 SV(MOD-sp4): 43.0 ml LAV(MOD-bp) Indexed: 33.5 ml/m2 LVLd ap4: 6.7 cm LAV(MOD-sp2): 49.4 ml EDV(MOD-sp4): 65.4 ml LAV(MOD-sp4): 51.7 ml EDV(sp4-el): 64.6 ml LVAs ap4: 11.5 cm2 LVLs ap4: 5.3 cm ESV(MOD-sp4): 22.4 ml ESV(sp4-el): 21.2 ml EF(MOD-sp4): 65.7 % EF(sp4-el): 67.1 % SV(sp4-el): 43.4 ml LA A4 area: 18.6 cm2 LA dimension(2D): 4.3 cm RA A4 area: 13.8 cm2 TAPSE: 1.4 cm Time Measurements MV dec time: 0.23 sec Doppler Measurements & Calculations MV E max carlos: 86.9 cm/sec Lat Peak E' Carlos: 9.2 cm/sec Med Peak E' Carlos: 7.7 cm/sec MV A max carlos: 91.1 cm/sec E/E' lat: 9.4 E/E' med: 11.3 MV E/A: 0.95 Ao V2 max: 158.0 cm/sec LV V1 max: 94.1 cm/sec PA V2 max: 112.3 cm/sec Ao max P.0 mmHg LV V1 max P.5 mmHg TR max carlos: 283.7 cm/sec TR max P.2 mmHg ECHO/Echo Complete Interpretation Summary The estimated ejection fraction is 65 %. Unable to assess diastolic dysfunction. The left atrium is moderately enlarged. Ordering Physician: Karis Lora Referring Physician: MARLA HARVEY Performed By: Lona Yarbrough, ALISHA
== END | disposition home or self-care (01) ==
LOC: CVS 09:57
PROVIDERS: PCP Internal Medicine; Referring Provider Physician Assistant Medical; Visit Provider Physician Assistant Medical
DX: I25.10 Atherosclerotic heart disease of native coronary artery without angina pectoris (principal); R01.1 Cardiac murmur, unspecified
CPT/HCPCS: 93306

== ENCOUNTER → 2024-06-06 | Outpatient (CLI) | payer MEDICARE, OTHER, SELFPAY ==
--- NOTE | 2024-06-06 12:41 | CDU_ITS ---
Reason For Study: CAROTID STENOSIS Rt. Velocities/BP Lt. Velocities/BP Prox CCA 71.1/9.7 cm/sec. Prox CCA 125.3/13.9 cm/sec. Mid CCA 91.0/12.6 cm/sec. Mid CCA 96.1/13.9 cm/sec. Dist CCA 77.8/12.6 cm/sec. Dist CCA 80.6/10.6 cm/sec. Prox ICA 79.3/14.2 cm/sec. Prox ICA 71.3/13.1 cm/sec. Mid ICA 110.0/22.8 cm/sec. Mid ICA 95.7/22.0 cm/sec. Dist ICA 128.9/24.8 cm/sec. Dist ICA 102.1/27.2 cm/sec. Rt. ICA/CCA = 128.9/91.0=1.4. Lt. ICA/CCA = 102.1/96.1=1.1. Prox ECA 112.5/0.0 cm/sec. Prox ECA 84.2/4.4 cm/sec. Rt. Vert. 68.6/12.8 cm/sec. Lt. Vert. 55.5/10.1 cm/sec. Right Extracranial There is homogeneous, smooth atherosclerotic plaque noted in the right common carotid artery. There is heterogeneous, irregular atherosclerotic plaque noted in the right internal carotid artery. The tortuous nature of the right internal carotid artery may result in flow velocities overestimating the degree of stenosis. There is homogeneous, smooth atherosclerotic plaque noted in the right external carotid artery. Antegrade flow is noted in the right vertebral artery. Left Extracranial There is homogeneous, smooth atherosclerotic plaque noted in the left common carotid artery. There is heterogeneous, irregular atherosclerotic plaque noted in the left internal carotid artery. The tortuous nature of the left internal carotid artery may result in flow velocities overestimating the degree of stenosis. There is heterogeneous, smooth atherosclerotic plaque noted in the left external carotid artery. Antegrade flow is noted in the left vertebral artery. Procedure Carotid Duplex [id number]. This is a Carotid Duplex examination using B-mode, color flow and specral Doppler. Exam performed in department. VL/Carotid Duplex Ultrasound Interpretation Summary Mild (<50%) stenosis right extracranial internal carotid. Mild (<50%) stenosis left extracranial internal carotid. Flow within the vertebral arteries is antegrade bilaterally. Ordering Physician: Stephanie Aceves Referring Physician: Stephanie Aceves Performed By: Shannan Platt RDCS, RVT
== END | disposition home or self-care (01) ==
LOC: CVS 12:38
PROVIDERS: PCP Internal Medicine; Referring Provider Internal Medicine; Visit Provider Internal Medicine
DX: I65.23 Occlusion and stenosis of bilateral carotid arteries (principal)
CPT/HCPCS: 93880

== ENCOUNTER → 2024-09-19 | Outpatient (CLI) | payer MEDICARE, OTHER, SELFPAY ==
--- NOTE | 2024-09-19 15:30 | BI_ITS ---
PROCEDURE: SCRN MAMM (CAD)W/IJNNY BILAT REASON FOR EXAM: 84-year-old female presents for annual screening mammogram. No family history of breast cancer. COMPARISON: 08/16/2023, 07/14/2022 TECHNIQUE: Bilateral screening digital breast tomosynthesis with C-View and 2D FFDM. Computer aided detection. FINDINGS: The breasts are heterogeneously dense which may obscure small masses. The mammogram demonstrates that the patient has dense breasts. Supplemental screening with whole breast ultrasound or MRI may be considered for further evaluation. No suspicious masses areas of architectural distortion or suspicious calcifications. BI/SCRN MAMM (CAD)W/JINNY BILAT IMPRESSION: There is no mammographic evidence of malignancy. BI-RADS 1: NEGATIVE. RECOMMEND ANNUAL MAMMOGRAPHIC SCREENING. The patient will be notified of the results by letter. Reading Location: [id number]
--- NOTE | 2024-09-19 15:49 | MRI_ITS ---
PROCEDURE: Noncontrast MRI of the lumbar spine. 09/19/2024 REASON FOR EXAM: Worsening low back pain. TECHNIQUE: Multiplanar, multisequence MRI images of the lumbar spine were obtained without IV contrast. COMPARISON: None. FINDINGS: The study assumes a presence of 5 lumbar type, [id number] vertebral bodies. On coronal localizer images, there is magnetic susceptibility artifact/anatomic signal distortion due to bilateral hip surgical hardware. Grade 1 retrolisthesis of L2 relative to L3 and grade 1 anterolisthesis of L5 relative to S1. No definite pars defects are demonstrated. There is severe advanced degenerative disc disease at L2-3, with reactive endplate changes. No acute lumbar vertebral body fracture or abnormal marrow replacement process. The conus terminates at L1. The included lower spinal cord and lower thoracic intervertebral disc spaces are unremarkable. There is a small but well-formed S1-2 disc space. Included portions of the sacrum and SI joints are intact. Included retroperitoneal and paraspinal soft tissues show no specific abnormality. L1-2: Mild disc bulge flattens the ventral thecal sac. No focal disc herniation or significant central spinal canal narrowing. Mild bilateral neural foraminal narrowing and mild degenerative facet changes. L2-3: Posterior disc osteophyte complex flattens the ventral thecal sac, causing a mild degree of central spinal canal narrowing. No focal disc herniation. [id number] right and moderate left neural foraminal narrowing. Moderate degenerative facet changes. L3-4: A diffuse disc bulge flattens the ventral thecal sac and causes mild central spinal canal narrowing. Mild right and [id number] left neural foraminal narrowing. Moderate degenerative facet changes. L4-5: Mild disc bulge flattens the ventral thecal sac, without focal disc herniation or significant central spinal canal narrowing. Mild left and [id number] right neural foraminal narrowing. Moderate degenerative facet changes. L5-S1: Mild disc bulge flattens the ventral thecal sac, causing a mild degree of central spinal canal narrowing. No focal disc herniation. Moderate left and severe right neural foraminal narrowing. Moderate degenerative facet changes. MRI/Spine Lumbar (Routine) IMPRESSION: No acute bony abnormality of the lumbar spine. Multilevel degenerative disc and facet disease in the lumbar spine as described level by level above. Diffuse disc bulges cause mild central spinal canal narrowing at L2-3, L3-4, and L5-S1. No large focal d isc herniation or severe central spinal canal narrowing. Multilevel degenerative disc and facet disease in the lumbar spine as above. S evere right neural foraminal narrowing at L5-S1. [facility]
== END | disposition home or self-care (01) ==
LOC: MRI 15:38
PROVIDERS: PCP Internal Medicine; Referring Provider Internal Medicine; Visit Provider Internal Medicine
DX: Z12.31 Encounter for screening mammogram for malignant neoplasm of breast (principal); M54.16 Radiculopathy, lumbar region; Z80.3 Family history of malignant neoplasm of breast
CPT/HCPCS: 72148; 77063; 77067

== ENCOUNTER → 2025-02-26 | Outpatient (CLI) | payer MEDICARE, OTHER, SELFPAY ==
[2025-02-26 18:03] LABS: Hematocrit 32.5 % (37-47); Hemoglobin 10.5 g/dL (12.0-15.0); Immature Granulocytes Count 0.170 X10^3/uL (0.0-0.0); Mean Corp Hgb Conc 32.3 g/dL (32-36); Mean Corpuscular Volume 83.3 fL (81-99); Mean Platelet Vol. 10.0 fl (6.2-12.0); NRBC Flagged by Analyzer 0 % (0-5); Platelet Count 250 K/mm3 (150-450); RBC Distribution Width CV 18.1 % (11.6-14.6); RBC Distribution Width SD 54.3 fl (35.1-43.9); Red Blood Count 3.90 M/mm3 (4.2-5.4); White Blood Count 5.2 K/mm3 (4.4-11.0)
[2025-02-26 18:14] LABS: Ferritin 152 ng/mL (22-378); Iron 79 ug/dL (50-170); Iron Binding Capacity,Total 259 ug/dL (250-450); Iron Binding Capacity,Unsat 180 ug/dL (228-428); LDH 172 U/L (84-246)
[2025-03-04 16:08] LABS: PROEL- A/G Ratio 1.3 (0.7-1.7); PROEL- Albumin 3.8 g/dL (2.9-4.4); PROEL- Alpha-1 Globulin 0.3 g/dL (0.0-0.4); PROEL- Alpha-2 Globulin 0.8 g/dL (0.4-1.0); PROEL- Beta Globulin 0.9 g/dL (0.7-1.3); PROEL- Gamma Globulin 1.0 g/dL (0.4-1.8); PROEL- Globulin, Total 3.0 g/dL (2.2-3.9); PROEL- TOTAL PROTEIN 6.8 g/dL (6.0-8.5); PROEL-M-Spike 0.2 g/dL (Not Observed); PROELU- Albumin, Urine 48.4 % (.); PROELU- Alpha-1-Globulin,Ur 9.3 % (.); PROELU- Alpha-2-Globulin,Ur 22.2 % (.); PROELU- Beta Globulin, Ur 13.2 % (.); PROELU- Gamma Globulin, Ur 6.9 % (.); Total Protein, Ur < 4.0 mg/dL (Not Estab.)
== END | disposition home or self-care (01) ==
LOC: MTLAB 15:55
PROVIDERS: PCP Internal Medicine; Referring Provider Internal Medicine; Visit Provider Internal Medicine
DX: D64.9 Anemia, unspecified (principal)
CPT/HCPCS: 36415; 82728; 83540; 83550; 83615; 84165; 84166; 85025

== ENCOUNTER → 2025-04-30 | Outpatient (CLI) | payer MEDICARE, OTHER, SELFPAY | END | disposition home or self-care (01) | LOC: CVS 11:53 | PROVIDERS: PCP Internal Medicine; Referring Provider Internal Medicine; Visit Provider Internal Medicine | DX: R42 Dizziness and giddiness (principal) | CPT/HCPCS: 93225; 93226 ==

== ENCOUNTER → 2025-05-01 | Outpatient (CLI) | payer MEDICARE, OTHER, SELFPAY ==
--- NOTE | 2025-05-01 13:49 | ECHOD_ITS ---
Reason For Study ECHO/Echo Complete
== END | disposition home or self-care (01) ==
LOC: CVS 13:43
PROVIDERS: PCP Internal Medicine; Referring Provider Internal Medicine; Visit Provider Internal Medicine
DX: R42 Dizziness and giddiness (principal); R00.2 Palpitations; R07.89 Other chest pain
CPT/HCPCS: 93306

== ENCOUNTER → 2025-05-28 | Outpatient (CLI) | payer MEDICARE, OTHER, SELFPAY ==
[2025-05-28 10:19] LABS: Hematocrit 33.5 % (37-47); Hemoglobin 10.9 g/dL (12.0-15.0); Mean Corp Hgb Conc 32.5 g/dL (32-36); Mean Corpuscular Volume 79.6 fL (81-99); Mean Platelet Vol. 9.6 fl (6.2-12.0); POSITIVE COUNT YES; POSITIVE MORPHOLOGY YES; Platelet Count 229 K/mm3 (150-450); RBC Distribution Width CV 19.2 % (11.6-14.6); RBC Distribution Width SD 55.0 fl (35.1-43.9); Red Blood Count 4.21 M/mm3 (4.2-5.4); White Blood Count 4.6 K/mm3 (4.4-11.0)
[2025-05-28 10:34] LABS: Differential Indicated MANUAL DIFF
[2025-05-28 10:59] LABS: Neutrophil-Segmented 67 % (47-70); Total Cells Counted 100 (MANUAL DIFF)
[2025-05-28 12:53] LABS: Creatinine, Urine (random) 63.20 mg/dL (28.00-217.00); Microalbumin,Random Urine 18.0 mg/L (<20 mg/L)
[2025-05-28 13:01] LABS: AST(SGOT) 17 U/L (<=31); Alanine Aminotransfer ALT/SGPT 9 U/L (<=34); Albumin, Serum 4.2 g/dL (3.4-4.8); Alkaline Phosphatase 65 U/L (35-104); Anion Gap 11 (5-15); BUN 9 mg/dL (4-19); BUN/Creat Ratio 16.9 RATIO (10-20); Calcium,Total 9.3 mg/dL (7.6-11.0); Carbon Dioxide 23.8 mmol/L (21.0-32.0); Chloride 97 mmol/L (98-108); Cholesterol 167 mg/dL (<=200); Globulin 2.8 g/dL (2.2-4.2); Glucose 114 mg/dL (70-99); Low Density Lipoprotein Calc. 90 mg/dL; Potassium 4.1 mmol/L (3.3-5.1); Triglycerides 96 mg/dL; Very Low Density Lipoprotein 19 mg/dL (5-40); cholesterol:hdl ratio screen 2.82
== END | disposition home or self-care (01) ==
LOC: CIMLAB 09:28
PROVIDERS: PCP Internal Medicine; Referring Provider Internal Medicine; Visit Provider Internal Medicine
DX: R73.01 Impaired fasting glucose (principal); I25.10 Atherosclerotic heart disease of native coronary artery without angina pectoris
CPT/HCPCS: 36415; 80053; 80061; 82043; 82570; 83036; 85025

== ENCOUNTER → 2025-06-19 | Outpatient (CLI) | payer MEDICARE, OTHER, SELFPAY ==
[2025-06-19 09:36] LABS: Mucous, Urine 0 SEEN /hpf (<or=2+); Red Blood Cells-Urine 0 SEEN /hpf (0-5)
[2025-06-19 10:43] LABS: Hematocrit 31.6 % (37-47); Hemoglobin 10.1 g/dL (12.0-15.0); Immature Granulocytes Count 0.020 X10^3/uL (0.0-0.0); Mean Corp Hgb Conc 32.0 g/dL (32-36); Mean Corpuscular Volume 79.8 fL (81-99); Mean Platelet Vol. 10.7 fl (6.2-12.0); NRBC Flagged by Analyzer 0 % (0-5); POSITIVE MORPHOLOGY YES; Platelet Count 223 K/mm3 (150-450); RBC Distribution Width CV 19.9 % (11.6-14.6); RBC Distribution Width SD 57.7 fl (35.1-43.9); Red Blood Count 3.96 M/mm3 (4.2-5.4); White Blood Count 5.9 K/mm3 (4.4-11.0)
[2025-06-19 12:17] LABS: Differential Indicated SCAN CRITERIA MET
[2025-06-19 12:24] LABS: Color, Urine Yellow (Yellow); Glucose, Dipstick Normal (Normal); Ketone-Dipstick Negative (Negative); Leukocyte Esterase-Dipstick 500 /ul (Negative); Nitrite-Dipstick Positive (Negative); Occult Blood-Urine 10 /ul (Negative); Protein-Dipstick 30 mg/dl (Negative); Specific Gravity, Urine 1.020 (1.002-1.030)
[2025-06-19 12:33] LABS: Creatinine, Urine (random) 208.00 mg/dL (28.00-217.00); Microalbumin,Random Urine 62.5 mg/L (<20 mg/L)
[2025-06-19 12:37] LABS: Urine Bilirubin Dipstick 1 mg/dL (Negative)
[2025-06-19 12:40] LABS: AST(SGOT) 17 U/L (<=31); Alanine Aminotransfer ALT/SGPT 9 U/L (<=34); Albumin, Serum 4.2 g/dL (3.4-4.8); Alkaline Phosphatase 59 U/L (35-104); Anion Gap 12 (5-15); BUN 13 mg/dL (4-19); BUN/Creat Ratio 20.9 RATIO (10-20); Calcium,Total 9.3 mg/dL (7.6-11.0); Carbon Dioxide 20.5 mmol/L (21.0-32.0); Chloride 101 mmol/L (98-108); Globulin 2.6 g/dL (2.2-4.2); Glucose 125 mg/dL (70-99); Potassium 4.4 mmol/L (3.3-5.1)
[2025-06-19 13:00] LABS: Squamous Epithelial Cells - UA 0-5 SEEN /hpf (5-10)
== END | disposition home or self-care (01) ==
LOC: CIMLAB 09:34
PROVIDERS: PCP Internal Medicine; Referring Provider Internal Medicine; Visit Provider Internal Medicine
DX: I10 Essential (primary) hypertension (principal)
CPT/HCPCS: 36415; 80053; 81001; 82043; 82570; 85025